=== PATIENT | male | born 1960 | race Caucasian/White ===

== ENCOUNTER 2019-11-01 08:25 | Inpatient (IN) | payer MEDICARE, BC ==
[2019-11-01 09:11] LABS: #Basophils 0.1 thou/uL (0.0-0.2); #Eosinphils 0.1 thou/uL (0.0-0.7); #Lymphocytes 0.8 thou/uL (1.20-3.40); #Monocytes 0.4 thou/uL (0.11-0.59); #Neutrophils 5.1 thou/uL (1.40-6.50); %Basophils 1.1 % (0.0-1.0); %Eosinophils 1.9 % (0.0-10.0); %Lymphocytes 11.8 % (21.0-51.0); %Monocytes 5.8 % (0.0-10.0); %Neutrophils 79.4 % (42.0-75.0); Hemoglobin 5.1 g/dL (14.0-18.0); Mean Corpuscular HGB CONC 34.1 g/dL (32.0-36.0); Mean Corpuscular Hemoglobin 33.2 pg (27.0-31.0); Mean Corpuscular Volume 97.4 fL (78.0-98.0); Platelet Count 132 thou/uL (130-400); RBC Distribution Width 15.2 % (11.5-14.5); Red Blood Cell (RBC) Count 1.53 mill/uL (4.70-6.10); White Blood Cell (WBC) Count 6.5 thou/uL (4.8-10.8)
--- NOTE | 2019-11-01 09:13 | RAD ---
PORTABLE CHEST ONE VIEW: 11/01/2019 8:43 a.m. HISTORY: Somnolence and weakness. The patient went to dialysis yesterday. COMPARISON: 09/10/2017 FINDINGS: The heart size is prominent but stable. The aorta is tortuous. The lungs are well expanded without lo bar consolidation, pneumothoraces, carlos pulmonary edema, or pleural effusions. IMPRESSION: No acute process. POS: OFF
[2019-11-01 09:32] LABS: ALT (SGPT) 18 U/L (8-55); AST (SGOT) 13 U/L (5-34); Albumin 3.7 g/dL (3.5-5.0); Alkaline Phosphatase 77 U/L (40-110); Anion Gap 18 mmol/L (10-20); BUN (Urea Nitrogen) 69 mg/dL (8.4-25.7); Bilirubin, Total 0.5 mg/dL (0.2-1.2); Calc. Creatinine Clearance 0 mL/min (70-130); Calcium 8.9 mg/dL (7.8-10.44); Carbon Dioxide 34 mmol/L (22-29); Chloride 94 mmol/L (98-107); Estimated GFR-MDRD 8; Globulin 2.3 g/dL (2.4-3.5); Glucose 127 mg/dL (70-105); Potassium 3.6 mmol/L (3.5-5.1); Sodium 142 mmol/L (136-145)
[2019-11-01 09:52] LABS: CKMB 1.6 ng/mL (0-6.6)
[2019-11-01] MEDS ORDERED: Pantoprazole 40 MG VIAL ONE (09:54)
[2019-11-01 15:13] VITALS: BMI 24.1
[2019-11-01] MEDS ORDERED: Ondansetron ODT 4 MG TAB PO PRN (17:16)
[2019-11-01] MEDS ORDERED: Ondansetron PF 4 MG/2 ML Vial IVP PRN (17:16)
--- NOTE | 2019-11-01 17:24 | PDOC.HHP ---
Hospitalist HPI - History of Present Illness Lightheaded History of Present Illness: Mr. Gautam presents following a pre-syncopal episode while having breakfast at [facility] this morning. He stood up to go to the bathroom and felt as if he was going to faint. He looked pale to the staff therefore he was taken to the ED. Patient states he has felt occasionally lightheaded the last couple of days and reports having 1 black stool recently. Denies any bright red blood per rectum. No n/v or hematemesis. no abdominal pain. Denies any chest pain or sob. Reports being due to HD tomorrow. ED Course: Given 2 units of PRBCs. Initial hgb was 5.1. Stool checked for occult blood reportedly negative in the ED, however patient states he was told it was positive. Hospitalist ROS - Review of Systems Constitutional: reports: weakness. denies: fever, chills, sweats, malaise, other Eyes: denies: pain, vision change, conjunctivae inflammation, eyelid inflammation, redness, other ENT: denies: ear pain, ear discharge, nose pain, nose discharge, nose congestion , mouth pain, mouth swelling, throat pain, throat swelling, other Respiratory: denies: cough, dry, shortness of breath, hemoptysis, SOB with excertion, pleuritic pain, sputum, wheezing, other Cardiovascular: reports: light headedness. denies: chest pain, palpitations, orthopnea, paroxysmal noc. dyspnea, edema, other Gastrointestinal: denies: nausea, vomiting, abdominal pain, diarrhea, constipation, melena, hematochezia, other Genitourinary: denies: dysuria, frequency, incontinence, hematuria, retention, other Musculoskeletal: denies: neck pain, shoulder pain, arm pain, back pain, hand pain, leg pain, foot pain, other Skin: denies: rash, lesions, mike, bruising, other Neurological: denies: weakness, numbness, incoordination, change in speech, confusion, seizures, other Hospitalist History - Past Medical History Source: patient Cardiac: reports: HTN, Hyperlipidemia Renal/: denies: Other - Past Surgical History Other Surgical History: nephrectomy, right oral surgery hernia repair - Social History Smoking Status: Former smoker Tobacco Type: chewing tobacco Alcohol: reports: None Living Situation: Alone Domestic Violence: Negative Activity level: independent ambulation - Exam General Appearance: NAD General - other findings: Appears pale Eye: PERRL ENT: normocephalic atraumatic, no oropharyngeal lesions, moist mucosa Neck: supple, symmetric, no lymphadenopathy Heart: RRR, no murmur, no gallops, no rubs Respiratory: CTAB, no wheezes, no rales, no ronchi, normal chest expansion Gastrointestinal: soft, non-tender, non-distended, normal bowel sounds Extremities: no cyanosis Skin: no lesions, no rashes Neurological: normal sensation to touch, no weakness, no new deficit Musculoskeletal: normal tone, normal strength, no muscle wasting Psychiatric: normal affect, normal behavior, A&O x 3 Hospitalist Results - Labs Result Diagrams: 11/01/19 08:57 11/01/19 08:57 Lab results: WBC 6.5 thou/uL (4.8-10.8) 11/01/19 08:57 Hgb 5.1 g/dL (14.0-18.0) L* 11/01/19 08:57 Hct 14.9 % (42.0-52.0) L* 11/01/19 08:57 MCV 97.4 fL (78.0-98.0) 11/01/19 08:57 Plt Count 132 thou/uL (130-400) 11/01/19 08:57 Neutrophils % 79.4 % (42.0-75.0) H 11/01/19 08:57 Sodium 142 mmol/L (136-145) 11/01/19 08:57 Potassium 3.6 mmol/L (3.5-5.1) 11/01/19 08:57 Chloride 94 mmol/L (98-107) L 11/01/19 08:57 Carbon Dioxide 34 mmol/L (22-29) H 11/01/19 08:57 BUN 69 mg/dL (8.4-25.7) H 11/01/19 08:57 Creatinine 7.49 mg/dL (0.7-1.3) H 11/01/19 08:57 Glucose 127 mg/dL (70-105) H 11/01/19 08:57 Calcium 8.9 mg/dL (7.8-10.44) 11/01/19 08:57 Total Bilirubin 0.5 mg/dL (0.2-1.2) 11/01/19 08:57 AST 13 U/L (5-34) 11/01/19 08:57 ALT 18 U/L (8-55) 11/01/19 08:57 Alkaline Phosphatase 77 U/L (40-110) 11/01/19 08:57 CK-MB (CK-2) 1.6 ng/mL (0-6.6) 11/01/19 08:57 Troponin I 0.044 ng/mL (< 0.028) H 11/01/19 08:57 Serum Total Protein 6.0 g/dL (6.0-8.3) 11/01/19 08:57 Albumin 3.7 g/dL (3.5-5.0) 11/01/19 08:57 Hospitalist H&P A/P - Problem (1) Melena Code(s): K92.1 - MELENA Status: Acute (2) Anemia of renal disease Code(s): D63.1 - ANEMIA IN CHRONIC KIDNEY DISEASE Status: Chronic (3) ESRD (end stage renal disease) on dialysis Code(s): N18.6 - END STAGE RENAL DISEASE; Z99.2 - DEPENDENCE ON RENAL DIALYSIS Status: Chronic (4) Hyperlipidemia Code(s): E78.5 - HYPERLIPIDEMIA, UNSPECIFIED Status: Chronic (5) Hypertension Code(s): I10 - ESSENTIAL (PRIMARY) HYPERTENSION Status: Chronic - Plan Plan: S/p 2 units PRBCs, re-check Hgb/Hct Re-check stool for occult blood GI Consult, NPO at midnight. Protonix 40 mg BID Nephrology consult (due to HD tomorrow) Resume home medications once verified. Monitor BP. CODE STATUS: FULL Surrogate decision maker: Preet Gautam, his brother.
[2019-11-01 17:33] LABS: Hemoglobin 6.6 g/dL (14.0-18.0)
[2019-11-01 17:39] LABS: INR-International Normal Ratio 1.1; PTT 27.8 SEC (22.9-36.1)
[2019-11-01] MEDS ORDERED: Mometasone Furoate 120 PUFF 220 MCG INH SCH (18:30)
[2019-11-01] MEDS: hydrALAZINE 25 MG TAB PO SCH (20:52)
[2019-11-01] MEDS: Carvedilol 25 MG TAB PO SCH (20:52)
[2019-11-01] MEDS: Pantoprazole 40 MG VIAL IVP SCH (20:53)
[2019-11-01] MEDS ORDERED: hydrALAZINE 20 MG/ML VIAL SLOW IVP PRN (22:15)
[2019-11-01] MEDS ORDERED: NIFEdipine XL 30 MG TAB PO SCH (22:30)
[2019-11-01] MEDS ORDERED: Lorazepam 0.5 MG TAB PO SCH (22:30)
--- NOTE | 2019-11-01 22:48 | CON ---
DATE OF CONSULTATION: 11/01/2019 REASON FOR CONSULTATION: Anemia, possible melena. CONSULTING PROVIDER: Ms. Jeni Markham. HISTORY OF PRESENT ILLNESS: The patient is a 58-year-old male with past medical history of hypertension; hyperlipidemia; end-stage renal disease, on hemodialysis; and anemia of renal disease, presenting with complaints of a presyncopal event and anemia. The patient states that he was in the usual state of health until this morning when while having breakfast at [facility], he stood up and experienced a "stumbling" type event where the patient had significant lower extremity weakness as well as lightheadedness, but did not have any loss of consciousness. Given the sudden increased weakness, it prompted him to seek healthcare assistance and while in the [facility] ER, he was noted to have a significantly decreased H and H. He was subsequently admitted to the hospital for further evaluation. The patient also endorses the appearance of a solid stool earlier today that was normal in coloration, but did have some "black bits" embedded within the stool itself that was easy to wipe and has not had any overt hematochezia nor has he had any completely black or liquid stools. Otherwise, he denies any nausea, vomiting, fevers, chills, hematemesis, hematochezia, abdominal pain, dysphagia, odynophagia, or weight loss. Of note, the patient also states that his last colonoscopy was within the last year and probably performed at the [facility] with normal findings and while his brother does have a history of colon polyps, none of them were considered high-grade nor does he have any family history of colon cancer. Also of note, upon chart review, the patient was admitted to the hospital in September of 2017 with a significantly decreased H and H at that time as well, at which time, the patient was transfused with 2 units of PRBCs and his erythropoietin dose was increased with the most likely etiology being anemia of renal disease. REVIEW OF SYSTEMS: A 10-category review of systems was obtained with all responses negative except for the pertinent positives as listed in HPI. PAST MEDICAL HISTORY: As per HPI. PAST SURGICAL HISTORY: Arteriovenous fistula placement, hernia repair, right nephrectomy. FAMILY HISTORY: Brother with a history of colonic polyps (low-grade), otherwise denies any GI malignancies. SOCIAL HISTORY: Denies any alcohol or illicit drug use, although he does use chewing tobacco on a regular basis. OUTPATIENT MEDICATIONS: Reviewed. ALLERGIES: NO KNOWN DRUG ALLERGIES. PHYSICAL EXAMINATION: VITAL SIGNS: Temperature 98.1, pulse 72, blood pressure 191/82, respiratory rate 20, saturating 92% on room air. GENERAL: The patient was lying in bed, in no acute distress. Alert and oriented x4. HEENT: Normocephalic and atraumatic. NECK: Supple. No JVD or scleral icterus noted. CARDIOVASCULAR: Regular rate and rhythm. No discernible murmurs, gallops, or rubs. RESPIRATORY: Clear to auscultation bilaterally with no discernible wheezes or rales. ABDOMEN: Normoactive bowel sounds. Soft, nontender, nondistended. EXTREMITIES: No cyanosis, clubbing, or edema. LABORATORY DATA: CBC with a white blood cell count of 6.5, hemoglobin 5.1, hematocrit 14.9, platelets 132. INR 1.1. Chemistry with a sodium of 142, potassium 3.6, chloride 94, CO2 of 34, BUN 69, creatinine 7.49, glucose 127, AST 13, ALT 18, albumin 3.7, alkaline phosphatase 77, total bilirubin 0.5. IMAGING DATA: No current GI imaging is available for review. ASSESSMENT AND PLAN: The patient is a 58-year-old male with past medical history of hypertension; hyperlipidemia; end-stage renal disease, on hemodialysis; and anemia of renal disease with prior episodes of significant anemia, presenting with a recurrent episode of significant anemia. 1. Anemia. The patient is presenting with what appears to be a possible presyncopal episode earlier today, but more characterized as lower extremity weakness in association with a significant anemia noted on labs on evaluation in the ER and while he did have a darker colored stool today, it is not consistent with a melenic type picture given that it was a normal brown stool with dark bits embedded and solid in consistency (by definition, melena would be a dark black liquid stool). In conjunction with this, the patient had a colonoscopy within the last year at the [facility] with normal findings per patient making a colonic origin of his anemia unlikely as well. At this time, the differential could include anemia of renal disease (most likely), but an upper GI bleeding source cannot be ruled out at this time with differential also including esophagitis, gastritis, duodenitis, arteriovenous malformation, gastric ulcer/peptic ulcer disease and/or GI neoplasm (less likely). Recommendations: a. Would continue to trend his H and H and transfuse as necessary to maintain an H and H of 7/. b. Continue to monitor clinically for signs of active GI bleeding. c. Would continue patient on pantoprazole 40 mg b.i.d. until evaluation with upper endoscopy. d. Would make the patient n.p.o. at midnight in preparation for upper endoscopy tomorrow. e. If the EGD is negative, then the more likely origin of his anemia would be his concurrent renal dysfunction and would possibly recommend Nephrology consultation for adjusting the dose of erythropoietin. We will continue to follow. Please call with any questions. Job ID: [id number]
[2019-11-01 23:44] VITALS: TEMP 97.9
[2019-11-02 05:52] LABS: #Eosinphils 0.2 thou/uL (0.0-0.7); #Lymphocytes 0.8 thou/uL (1.20-3.40); #Monocytes 0.5 thou/uL (0.11-0.59); #Neutrophils 5.8 thou/uL (1.40-6.50); %Basophils 0.7 % (0.0-1.0); %Eosinophils 2.9 % (0.0-10.0); %Lymphocytes 11.2 % (21.0-51.0); %Monocytes 7.3 % (0.0-10.0); %Neutrophils 77.9 % (42.0-75.0); Hemoglobin 7.1 g/dL (14.0-18.0); Mean Corpuscular HGB CONC 32.8 g/dL (32.0-36.0); Mean Corpuscular Volume 94.5 fL (78.0-98.0); Mean Platelet Volume 8.5 fL (7.4-10.4); Platelet Count 146 thou/uL (130-400); RBC Distribution Width 15.9 % (11.5-14.5); Red Blood Cell (RBC) Count 2.29 mill/uL (4.70-6.10); White Blood Cell (WBC) Count 7.4 thou/uL (4.8-10.8)
[2019-11-02] MEDS: Carvedilol 25 MG TAB PO SCH (05:58)
[2019-11-02 06:21] LABS: ALT (SGPT) 19 U/L (8-55); AST (SGOT) 14 U/L (5-34); Albumin 3.5 g/dL (3.5-5.0); Alkaline Phosphatase 76 U/L (40-110); Anion Gap 21 mmol/L (10-20); BUN (Urea Nitrogen) 85 mg/dL (8.4-25.7); Bilirubin, Total 0.6 mg/dL (0.2-1.2); Calc. Creatinine Clearance 8 mL/min (70-130); Calcium 8.4 mg/dL (7.8-10.44); Carbon Dioxide 25 mmol/L (22-29); Chloride 98 mmol/L (98-107); Estimated GFR-MDRD 6; Globulin 2.2 g/dL (2.4-3.5); Glucose 98 mg/dL (70-105); Magnesium 2.4 mg/dL (1.6-2.6); Potassium 3.8 mmol/L (3.5-5.1); Protein, Total 5.7 g/dL (6.0-8.3); Sodium 140 mmol/L (136-145)
[2019-11-02 07:55] VITALS: BP 170/81
[2019-11-02] MEDS: hydrALAZINE 25 MG TAB PO SCH (08:31)
[2019-11-02] MEDS: Pantoprazole 40 MG VIAL IVP SCH (08:31)
[2019-11-02] MEDS ORDERED: NIFEdipine XL 90 MG TAB PO SCH (09:00)
[2019-11-02] MEDS ORDERED: Calcitriol 0.25 MCG CAP PO SCH (09:00)
--- NOTE | 2019-11-02 09:21 | PDOC.HOSPP ---
- Subjective Encounter Date: 11/02/19 Encounter Time: 15:00 Subjective: Patient seen after dialysis before EGD - Objective Vital Signs & Weight: Vital Signs (12 hours) Temp Pulse Resp BP BP BP Pulse Ox 11/02/19 08:31 78 11/02/19 07:54 97.9 F 78 20 170/81 H 90 L 11/02/19 04:11 97.9 F 77 20 160/80 H 95 11/02/19 02:01 173/83 H 11/02/19 01:12 79 207/93 H 11/01/19 22:43 72 204/100 H Weight Weight 154 lb 5.177 oz I&O: 11/01/19 11/02/19 11/03/19 06:59 06:59 06:59 Intake Total 185 Balance 185 Result Diagrams: 11/02/19 17:38 11/02/19 05:33 Hospitalist ROS - Review of Systems Constitutional: denies: fever, chills Respiratory: denies: cough, dry, shortness of breath Cardiovascular: denies: chest pain, palpitations, orthopnea Gastrointestinal: denies: nausea, vomiting, abdominal pain - Medication Medications: Active Medications Generic Name Dose Route Start Last Admin Trade Name Freq PRN Reason Stop Dose Admin Calcitriol 0.25 mcg 11/02/19 09:00 11/02/19 08:31 Rocaltrol PO 0.25 mcg DAILY SARTHAK Administration Carvedilol 12.5 mg 11/01/19 21:00 11/02/19 05:58 Coreg PO 12.5 mg BID SARTHAK Administration Hydralazine HCl 25 mg 11/01/19 21:00 11/02/19 08:31 Apresoline PO 25 mg TID SARTHAK Administration Hydralazine HCl 10 mg 11/01/19 22:15 11/02/19 01:12 Apresoline SLOW IVP 10 mg Q4H PRN Administration SBP Greater Than 180 Mometasone Furoate 1 puff 11/01/19 18:30 11/01/19 19:58 Asmanex Twisthaler INH 1 puff 1830 SARTHAK Administration Nifedipine 90 mg 11/02/19 09:00 11/02/19 08:31 Procardia Xl PO 90 mg DAILY SARTHAK Administration Pantoprazole Sodium 40 mg 11/01/19 21:00 11/02/19 08:31 Protonix IVP 40 mg BID SARTHAK Administration Sodium Chloride 10 ml 11/01/19 21:00 11/01/19 20:53 Flush - Normal Saline IVF 10 ml Q12HR SARTHAK Administration - Exam General Appearance: NAD, awake alert Eye: anicteric sclera ENT: moist mucosa Heart: RRR, no murmur, no gallops, no rubs Respiratory: CTAB, no wheezes, no rales, no ronchi Gastrointestinal: soft, non-tender, non-distended, normal bowel sounds Psychiatric: normal affect, normal behavior, A&O x 3 Hosp A/P (1) Anemia of renal disease Code(s): D63.1 - ANEMIA IN CHRONIC KIDNEY DISEASE Status: Acute (2) ESRD (end stage renal disease) on dialysis Code(s): N18.6 - END STAGE RENAL DISEASE; Z99.2 - DEPENDENCE ON RENAL DIALYSIS Status: Chronic (3) Hyperlipidemia Code(s): E78.5 - HYPERLIPIDEMIA, UNSPECIFIED Status: Chronic (4) Hypertension Code(s): I10 - ESSENTIAL (PRIMARY) HYPERTENSION Status: Chronic - Plan Hemoccult stool negative EGD today, if normal likely anemia is only due to renal disease Hgb 7.1 after 2 units PRBC Dialysis per nephrology monitor H/H and if stable can likely d/c if EGD ok
[2019-11-02] MEDS ORDERED: PROPOFOL 200 MG/20 ML VIAL ONE (10:46)
[2019-11-02] MEDS ORDERED: hydrALAZINE 25 MG TAB PO SCH (15:00)
[2019-11-02] MEDS ORDERED: FLU VACC QS2019-20(6MOS UP)/PF 60 MCG/0.5 ML SYRINGE IM ONE (15:30)
[2019-11-02] MEDS ORDERED: Prevnar 13-Val Conj/PF 0.5 ML SYRINGE IM ONE (15:30)
[2019-11-02 17:48] LABS: Hemoglobin 7.7 g/dL (14.0-18.0)
--- NOTE | 2019-11-02 18:00 | OP ---
DATE OF PROCEDURE: 11/02/2019 GAME DESIGNER SURGEON: None. PROCEDURE PERFORMED: Esophagogastroduodenoscopy with biopsies. INDICATION: Anemia. MEDICATIONS: See Anesthesia record. FINDINGS: After discussion of the risks, benefits, and alternatives of the procedure, informed consent was obtained and witnessed. Pre-endoscopic cardiopulmonary examination was satisfactory. Time-out was performed before sedation was achieved. Sedation was achieved with Anesthesia assistance in the endoscopy unit. A Pentax adult upper endoscope was placed into the oropharynx and passed through the cricopharyngeus under direct visualization. The esophageal mucosa appeared normal throughout with a normal-appearing Z-line. The endoscope was advanced into the stomach. Forward and retroflexed views of the entire gastric mucosa were obtained. In the gastric fundus, there is some localized friability and mild erythema. No evidence of any erosion or ulceration, but just rather friable area with some contact oozing. There is a slightly nodular appearance to the mucosa in this area diffusely as well, but it certainly does not appear masslike. Multiple biopsies were obtained from this area of the gastric fundus. The remainder of the stomach appeared completely normal. There was no evidence of any erosions or ulcerations. The endoscope was advanced through the pylorus and into the first and second portions of the duodenum, which appeared normal. The upper endoscope was completely withdrawn and the patient allowed to recover. The patient tolerated the procedure well. There were no immediate postprocedure complications. IMPRESSION: 1. Mild gastritis, localized in the fundus, with erythema and friability. Biopsied for histology and to rule out Helicobacter pylori. 2. Otherwise normal esophagogastroduodenoscopy. RECOMMENDATIONS: 1. Daily PPI for 1 month. 2. Follow up pathology results on the gastric biopsies. 3. Advance diet. GI will sign off. Please call back with any questions or concerns. Job ID: [id number]
--- NOTE | 2019-11-02 20:16 | CON ---
DATE OF CONSULTATION: 11/02/2019 SERVICE: Nephrology. REASON FOR CONSULTATION: End-stage renal disease management. REQUESTING PHYSICIAN: YARI Romero CHIEF COMPLAINT: Near syncope. HISTORY OF PRESENT ILLNESS: A 58-year-old male with known history of end-stage renal disease, on hemodialysis, who suddenly developed near syncope and dizziness on getting up while having breakfast followed by unsteady gait. Friends and relatives around noticed the patient's unsteady gait the patient was very pale. Hence, he was brought to the emergency room, where he was found to have severe anemia of 5.1. He was subsequently transfused 2 units of packed red blood cells and GI is following. The patient has been complained with his hemodialysis with last treatment being 2 days ago. He denied nausea, hematemesis, hematochezia, hematuria, or easy bruising. PAST MEDICAL HISTORY: 1. Hypertension. 2. Hyperlipidemia. 3. End-stage renal disease, on hemodialysis. 4. The patient reported anemia with prior history of blood transfusion. PAST SURGICAL HISTORY: 1. Colonoscopy last year. 2. Right nephrectomy. 3. Oral surgery. 4. Hernia repair. FAMILY HISTORY: No history of colon cancer in the family, though brother had colon polyps. SOCIAL HISTORY: The patient lives with friends. Former smoker, but quit several years ago. Currently chews tobacco. Denied alcohol or recreational drug use. ALLERGIES: NO KNOWN DRUG ALLERGIES REPORTED. MEDICATIONS: Prior to hospital medications, 1. Aspirin 81 mg p.o. daily. 2. Carvedilol 12.5 mg p.o. b.i.d. 3. Flovent 2 sprays daily at bedtime. 4. Nifedipine 90 mg p.o. daily. 5. Calcitriol 0.25 mcg p.o. daily. 6. Hydralazine 25 mg p.o. t.i.d. 7. Protonix 40 mg p.o. daily. PHYSICAL EXAMINATION: VITAL SIGNS: Temperature 97.9, pulse 78, respiratory rate 20, SpO2 90% on room air, blood pressure is 170/81. GENERAL: Comfortable male patient in no obvious distress. Afebrile. Anicteric. Acyanotic. HEENT: Normocephalic, atraumatic. Oral mucosa is moist. NECK: Supple with no JVD. CARDIOVASCULAR: Regular rhythm and rate with normal heart sounds. RESPIRATORY: Good air entry bilaterally with no obvious crackle or rhonchi or use of accessory muscles. GI: Full, soft, nontender, nondistended with normal bowel sounds. EXTREMITIES: Grossly normal looking, atraumatic with no obvious edema or erythema. EARTH SCIENCE TEACHER: Conscious, alert, oriented x3 with appropriate mental status. Cranial nerves 2 through 12 are grossly intact. DIAGNOSTIC DATA: CBC today showed WBC count of 7.4, hemoglobin of 7.1, MCV of 94.5, and platelet of 146. Note that on presentation, hemoglobin was 5.1. BMP showed sodium 140, potassium 3.8, chloride 98, CO2 of 25, BUN 85, creatinine 9.75, glucose 98, calcium 8.4, magnesium 2.4, AST 14, ALT 19, alkaline phosphatase 76, total protein 5.7, albumin 3.5, globulin 2.2. ASSESSMENT: 1. Acute on chronic anemia. Etiology is unclear, but GI bleeding is a concern. 2. Chronic anemia in chronic kidney disease. 3. The patient has had prior blood transfusion and subsequent increase in erythrocyte stimulating agents. The acute presentation is more consistent with GI bleeding. The patient also endorsed black stool. 4. End-stage renal disease, on hemodialysis. 5. Hypertension: Control is suboptimal. The patient is not overtly fluid overloaded to suggest this being mediated by hypervolemia. PLAN: 1. We will dialyze the patient today for 4 hours. 2. We will monitor blood pressure post-dialysis and adjust blood pressure as needed to get better BP control. We will increase hydralazine however to 50 mg p.o. t.i.d. 3. We will also get iron chemistry to assess for iron deficiency. 4. Blood transfusion as per primary attending. 5. The patient will be commenced on erythrocyte stimulating agent. Further treatment as per primary attending and GI. Job ID: [id number]
--- NOTE | 2019-11-03 03:01 | DIS ---
DATE OF ADMISSION: 11/01/2019 DATE OF DISCHARGE: 11/02/2019 PRIMARY CARE PHYSICIAN: Lillian Castillo MD REASON FOR ADMISSION: Severe anemia with possible melena. DIAGNOSES AT DISCHARGE: 1. Anemia of renal disease. 2. End-stage renal disease, on dialysis. 3. Mild gastritis without evidence of gastrointestinal bleed. 4. Hyperlipidemia. 5. Hypertension. PROCEDURE: Esophagogastroduodenoscopy with biopsies with results of mild gastritis localized in the fundus with erythema and friability. Biopsy to rule out H pylori. CONSULTATION: Gastroenterology, Dr. Byers. PERTINENT LABORATORY: Hemoglobin initially 5.1 up to 6.6 after transfusion of 2 units of packed red blood cells. On recheck, the hemoglobin later was 7.1 and on the evening of discharge, it was 7.7. SUMMARY OF HOSPITAL COURSE: This is a 58-year-old man with a history of end-stage renal disease and anemia of chronic disease, who came in because he felt like he was going to faint and was noted to be very pale. In the emergency room, he was found to have very low blood count. He was given 2 units of packed red blood cells with resolution of his symptoms. He also had dialysis and removal of some fluid. GI was consulted because there is some concern that maybe he had some melena. However, his stools on examination were dark brown, a Hemoccult test was negative for occult blood. The patient had had a colonoscopy within the last year. However, given that we were unable to rule out an upper GI source of blood loss, Dr. Mckay elected to do EGD with results as above. He was cleared for discharge, just to take proton pump inhibitor for 1 month. DISCHARGE MANAGEMENT: Discharged home. FOLLOWUP: Follow up with Dr. Mckay as directed and with Dr. Castillo in 7 days. ACTIVITY: As tolerated. DIET: Renal diet. MEDICATIONS: 1. Protonix 40 mg daily, 30 tablets dispensed. 2. Aspirin 81 mg daily. 3. Calcitriol 0.25 mcg daily. 4. Carvedilol 12.5 mg twice a day. 5. Flovent Diskus two sprays inhaled at night. 6. Hydralazine 25 mg 3 times a day. 7. Procardia XL 90 mg daily. Job ID: [id number]
== END 2019-11-02 18:58 | disposition home or self-care (01) | DRG 682 ==
LOC: ERS 08:25 → ERHOLD 10:24 → T4-B 15:12
PROVIDERS: ADMIT Internal Medicine; ATTEND Internal Medicine
PROC: 30233N1 Transfusion of Nonautologous Red Blood Cells into Peripheral Vein, Percutaneous Approach (ICD-10-PCS; principal; 2019-11-01)
PROC: 0DB68ZX Excision of Stomach, Via Natural or Artificial Opening Endoscopic, Diagnostic (ICD-10-PCS; 2019-11-02)
DX: I12.0 Hypertensive chronic kidney disease with stage 5 chronic kidney disease or end stage renal disease (principal); N18.6 End stage renal disease; D63.1 Anemia in chronic kidney disease; E78.5 Hyperlipidemia, unspecified; K29.70 Gastritis, unspecified, without bleeding; Z99.2 Dependence on renal dialysis; Z79.899 Other long term (current) drug therapy; Z79.82 Long term (current) use of aspirin
CPT/HCPCS: 36415; 36430; 71045; 80053; 82274; 82553; 83735; 84484; 85025; 85610; 85730; 86850; 86900; 86901; 93005; C9113; J0360; P9016

== ENCOUNTER 2020-01-04 06:28 | Emergency (ER) | payer MEDICARE, BC ==
[2020-01-04 07:18] LABS: #Eosinphils 0.1 thou/uL (0.0-0.7); #Lymphocytes 0.6 thou/uL (1.20-3.40); #Monocytes 1.3 thou/uL (0.11-0.59); #Neutrophils 13.8 thou/uL (1.40-6.50); %Basophils 0.1 % (0.0-1.0); %Eosinophils 0.4 % (0.0-10.0); %Lymphocytes 3.9 % (21.0-51.0); %Monocytes 8.1 % (0.0-10.0); %Neutrophils 87.4 % (42.0-75.0); Hemoglobin 8.4 g/dL (14.0-18.0); MDiff Complete? YES; Mean Corpuscular HGB CONC 33.1 g/dL (32.0-36.0); Mean Corpuscular Hemoglobin 31.5 pg (27.0-31.0); Mean Platelet Volume 8.9 fL (7.4-10.4); Platelet Count 81 thou/uL (130-400); Platelet Morphology Comment Appears Decreased; Polychromasia SLIGHT = 2-3 cells (100X) (0-2/hpf); RBC Distribution Width 16.3 % (11.5-14.5); Red Blood Cell (RBC) Count 2.66 mill/uL (4.70-6.10); White Blood Cell (WBC) Count 15.8 thou/uL (4.8-10.8)
[2020-01-04 07:19] LABS: ALT (SGPT) 18 U/L (8-55); AST (SGOT) 12 U/L (5-34); Albumin 3.9 g/dL (3.5-5.0); Alkaline Phosphatase 80 U/L (40-110); Anion Gap 17 mmol/L (10-20); BUN (Urea Nitrogen) 50 mg/dL (8.4-25.7); Bilirubin, Total 0.7 mg/dL (0.2-1.2); Calc. Creatinine Clearance 0 mL/min (70-130); Calcium 9.7 mg/dL (7.8-10.44); Carbon Dioxide 31 mmol/L (22-29); Chloride 94 mmol/L (98-107); Estimated GFR-MDRD 7; Globulin 2.4 g/dL (2.4-3.5); Glucose 124 mg/dL (70-105); Protein, Total 6.3 g/dL (6.0-8.3); Sodium 138 mmol/L (136-145)
--- NOTE | 2020-01-04 08:37 | RAD ---
PORTABLE CHEST: Date: 01/04/2020 PROVIDED CLINICAL HISTORY: Cough. FINDINGS: Comparison with 11/01/2019. Cardiac silhouette remains enlarged. Obscuration of the left hemidiaphragm compatible with left basil ar pleural and/or parenchymal opacity. Right lung appears clear. There is no evidence for pneumothora x. IMPRESSION: Left basilar pleural and/or parenchymal opacity. This may reflect pleural fluid with adjacent atelect asis and/or infiltrate. Follow-up is recommended. POS: TPC
== END 2020-01-04 09:05 | disposition home or self-care (01) ==
LOC: ERS 06:28
DX: J18.9 Pneumonia, unspecified organism (principal); E78.5 Hyperlipidemia, unspecified; E78.00 Pure hypercholesterolemia, unspecified; F17.220 Nicotine dependence, chewing tobacco, uncomplicated; D64.9 Anemia, unspecified; N18.6 End stage renal disease; Z79.899 Other long term (current) drug therapy
CPT/HCPCS: 36415; 71046; 80053; 85025; 93005

== ENCOUNTER 2020-01-13 07:08 | Observation (INO) | payer MEDICARE, BC ==
[2020-01-13 07:57] LABS: #Eosinphils 0.1 thou/uL (0.0-0.7); #Lymphocytes 0.6 thou/uL (1.20-3.40); #Monocytes 0.6 thou/uL (0.11-0.59); #Neutrophils 8.3 thou/uL (1.40-6.50); %Basophils 0.4 % (0.0-1.0); %Eosinophils 0.6 % (0.0-10.0); %Lymphocytes 6.6 % (21.0-51.0); %Monocytes 5.7 % (0.0-10.0); %Neutrophils 86.7 % (42.0-75.0); Mean Corpuscular HGB CONC 32.8 g/dL (32.0-36.0); Mean Corpuscular Hemoglobin 31.4 pg (27.0-31.0); Mean Corpuscular Volume 95.6 fL (78.0-98.0); Mean Platelet Volume 8.8 fL (7.4-10.4); Platelet Count 175 thou/uL (130-400); RBC Distribution Width 16.2 % (11.5-14.5); Red Blood Cell (RBC) Count 2.54 mill/uL (4.70-6.10); White Blood Cell (WBC) Count 9.5 thou/uL (4.8-10.8)
--- NOTE | 2020-01-13 08:00 | RAD ---
RADIOGRAPH CHEST 2 VIEW: DATE: 01/13/2020 TIME: 8:54 AM HISTORY: 59-year-old male with cough COMPARISON: 01/04/2020 FINDINGS: Cardiomegaly now appears slightly worse. The meniscus at the left base seen on the frontal view remai ns, but the underlying pulmonary opacity at the base of the left lower lobe has improved. Lateral view shows mild blunting of posterior costophrenic angles bilaterally. No pulmonary edema or consolid ation currently. No pneumothorax. IMPRESSION: 1. Cardiomegaly. 2. Small left pleural effusion and tiny right pleural effusion. 3. No consolidation or pulmonary edema.
[2020-01-13 08:10] LABS: ALT (SGPT) 96 U/L (8-55); AST (SGOT) 54 U/L (5-34); Alkaline Phosphatase 112 U/L (40-110); Anion Gap 22 mmol/L (10-20); BUN (Urea Nitrogen) 54 mg/dL (8.4-25.7); Bilirubin, Total 0.5 mg/dL (0.2-1.2); Calc. Creatinine Clearance 0 mL/min (70-130); Carbon Dioxide 31 mmol/L (22-29); Chloride 92 mmol/L (98-107); Estimated GFR-MDRD 6; Globulin 2.6 g/dL (2.4-3.5); Glucose 106 mg/dL (70-105); Potassium 4.1 mmol/L (3.5-5.1); Protein, Total 6.6 g/dL (6.0-8.3); Sodium 141 mmol/L (136-145)
[2020-01-13] MEDS ORDERED: Cefepime 2 GM VIAL ONE (08:31)
[2020-01-13] MEDS ORDERED: Vancomycin 1 GM/200 ML BAG ONE (08:31)
--- NOTE | 2020-01-13 11:03 | ULT ---
GALLBLADDER ULTRASOUND: Date: 01/13/2020 HISTORY: Elevated LFTs, vomiting. COMPARISON: 08/20/2016. FINDINGS: The liver demonstrates homogeneous echotexture without focal mass or intrahepatic ductal dilatation. There is a small amount of free fluid adjacent to the liver. Multiple nonshadowing echogenic foci wit hout mobility are seen arising from the wall of the gallbladder consistent with polyps measuring up t o 5.0 mm. The gallbladder wall is thickened, measuring 8.0 mm. There is a small amount of free perich olecystic fluid. Pancreas is prominent, but otherwise unremarkable. The right kidney is small (7.5 cm) and echogenic w ith two cysts, the largest measuring 2.0 cm. No right-sided hydronephrosis seen. IMPRESSION: 1. Gallbladder wall polyps with thickened wall and pericholecystic fluid. If there is concern for ac jose ramon cholecystitis, further evaluation with HIDA scan should be performed. 2. Medical renal disease with renal cysts. POS: JESSE
[2020-01-13] MEDS: Ondansetron PF 4 MG/2 ML Vial IVP PRN (14:55)
[2020-01-13] MEDS: cefTRIAXone\\ROCEPHIN 1 GM in Sodium Chloride 0.9% 100 ML IVPB SCH (14:55)
--- NOTE | 2020-01-13 16:30 | HP ---
CHIEF COMPLAINT: Feeling weak. HISTORY OF PRESENT ILLNESS: The patient is a 59-year-old male with end-stage renal disease, on hemodialysis on Friday, , and Friday; history of diabetes; hypertension; hyperlipidemia; and history of anemia of chronic disease; who presented to the hospital with complaints of feeling dizzy and generally weak, that started yesterday after his hemodialysis session. The patient was found to be hypotensive in the ER with the systolic blood pressure in the 80s, that has improved after administration of IV fluids. Initial workup revealed some elevated LFTs, and an ultrasound of the abdomen was performed showing thickened gallbladder wall with pericholecystic fluid suggestive of cholecystitis. REVIEW OF SYSTEMS: Negative except as noted in HPI. PAST MEDICAL HISTORY: 1. End-stage renal disease. 2. Hypertension. 3. Hyperlipidemia. 4. Chronic anemia. 5. Diabetes mellitus. PAST SURGICAL HISTORY: Right nephrectomy and hernia repair. SOCIAL HISTORY: The patient is a former smoker. Denies history of illicit drug use or alcoholism. PHYSICAL EXAMINATION: GENERAL: The patient appears well, alert and oriented x3. HEENT: His head is normocephalic, atraumatic. NECK: Supple with no JVD. CHEST: Clear to auscultation bilaterally. CARDIOVASCULAR: RRR. No murmurs, rubs, or gallops. Normal S1, S2. No peripheral edema. ABDOMEN: Soft, nontender, nondistended. EXTREMITIES: Showing normal skin, and no edema. NEUROLOGICAL: Unremarkable. ASSESSMENT: 1. Hypotension. 2. Possible cholecystitis. 3. End-stage renal disease, on hemodialysis. 4. Hypertension. 5. Hyperlipidemia. 6. Diabetes mellitus. PLAN: 1. We will bring the patient to the hospital and start empiric IV antibiotic with Rocephin 1 g daily. 2. Consult Surgical Team to assess for possible cholecystitis. 3. I will hold off on further IV fluids at this moment due to the patient being on dialysis. Job ID: [id number]
[2020-01-13] MEDS: Carvedilol 6.25 MG TAB PO SCH (21:27)
[2020-01-14] MEDS: Acetaminophen 325 MG TAB PO PRN ×2 (00:38→12:55)
[2020-01-14 06:38] LABS: ALT (SGPT) 246 U/L (8-55); AST (SGOT) 161 U/L (5-34); Albumin 3.7 g/dL (3.5-5.0); Alkaline Phosphatase 95 U/L (40-110); Anion Gap 26 mmol/L (10-20); BUN (Urea Nitrogen) 70 mg/dL (8.4-25.7); Bilirubin, Total 0.5 mg/dL (0.2-1.2); Calc. Creatinine Clearance 8 mL/min (70-130); Calcium 9.4 mg/dL (7.8-10.44); Carbon Dioxide 23 mmol/L (22-29); Chloride 95 mmol/L (98-107); Estimated GFR-MDRD 6; Globulin 2.5 g/dL (2.4-3.5); Glucose 114 mg/dL (70-105); Potassium 4.9 mmol/L (3.5-5.1); Protein, Total 6.2 g/dL (6.0-8.3); Sodium 139 mmol/L (136-145)
[2020-01-14 07:23] VITALS: BP 108/75; TEMP 97.5
[2020-01-14] MEDS ORDERED: Enoxaparin Sodium 30 MG/0.3 ML SYRINGE SC SCH (09:00)
[2020-01-14] MEDS ORDERED: Famotidine 20 MG TAB PO SCH (09:00)
[2020-01-14] MEDS ORDERED: Aspirin Chewable 81 MG TAB PO SCH (09:00)
[2020-01-14] MEDS: Ondansetron PF 4 MG/2 ML Vial IVP PRN (09:07)
[2020-01-14] MEDS: Carvedilol 6.25 MG TAB PO SCH (09:08)
[2020-01-14 12:05] LABS: HBSAg Index 0.47 S/CO (0-0.99); Hep B Surf Ag Non-Reactive S/CO (NonReactive)
[2020-01-14] MEDS: cefTRIAXone\\ROCEPHIN 1 GM in Sodium Chloride 0.9% 100 ML IVPB SCH (12:29)
[2020-01-14 12:44] VITALS: BMI 24.3
[2020-01-14] MEDS ORDERED: Heparin 10,000 UNITS/ 10 ML VIAL ONE (13:40)
--- NOTE | 2020-01-14 16:00 | CON ---
DATE OF CONSULTATION: HISTORY OF PRESENT ILLNESS: Terrance Gautam is a 59-year-old male, a dialysis patient, has had pneumonia in the past few days, coughing, had low-grade fever, felt poorly. He denies any abdominal pain whatsoever. He presented to the emergency room. The patient has end-stage renal disease, followed by Dr. Rock with a durable left forearm Timothy fistula, placed by Dr. Rock. He was seen in the emergency room. His white count was 9.5 and hemoglobin 8. Liver function tests were normal. The patient underwent abdominal ultrasound for some reason, noting some gallbladder polyps, thickened gallbladder wall, pericholecystic fluid with normal bile duct caliber. I was called by the ER physician, concerned about cholecystitis, although the patient did not have any pain or tenderness in the right abdomen. I informed the emergency room physician the further evaluation was not necessary that he did not have biliary disease and his pericholecystic fluid is probably related to his end-stage renal disease status, perhaps contributed with some cardiac diastolic dysfunction. I, however, was consulted on the floor to see him. The patient states he has had a cough for the past few days. Again, he denies any abdominal pain, nausea, or bloating to me. He does not have any flank pain or chest pain. Liver function tests are normal. ALLERGIES: NONE. MEDICATIONS: 1. Rocaltrol. 2. Hydralazine. 3. Protonix. 4. Nifedipine. 5. Carvedilol. 6. Aspirin. PAST MEDICAL HISTORY: 1. History of end-stage renal disease, on dialysis. 2. Recent onset of pneumonia. 3. Hypertension. 4. Hyperlipidemia. 5. Chronic anemia. 6. Diabetes mellitus. PAST SURGICAL HISTORY: 1. Right nephrectomy. 2. Hernia repair. 3. Left arm primary fistula by Dr. Rock. HABITS: The patient has been a smoker in the past. He denies any drug use. PHYSICAL EXAMINATION: VITAL SIGNS: He is listed as 7 feet 5 inches, which I doubt, correct more like 5 feet 5 inches, 155 pounds, BMI is inaccurate on calculation due to inaccurate height, temperature 97.5 degrees, pulse 66, and blood pressure 180/75. LUNGS: Clear to auscultation. The patient does have a mild cough during this interview and exam. CARDIAC: Regular rhythm without murmur or gallop. ABDOMEN: Soft and nontender. No masses. No guarding whatsoever. EXTREMITIES: Unremarkable. ASSESSMENT AND PLAN: There is no clinical history or radiological findings to suggest biliary disease. Further evaluation and workup are not warranted. I would not order a HIDA scan as he does not have any symptoms. Would recommend discharge home whenever he is medically fit and Surgery will see him as needed. He can see me in my office or Dr. Rock should he develop any abdominal pain to warrant further biliary workup. Job ID: [id number]
--- NOTE | 2020-01-14 18:06 | CON ---
DATE OF CONSULTATION: CONSULTING PHYSICIAN: Jake Garrido MD REQUESTING PHYSICIAN: Dr. Phelan. REASON FOR CONSULTATION: Need for maintenance hemodialysis. IMPRESSION: 1. End-stage renal disease, hemodialysis dependent on a Friday, Friday, and Friday schedule. 2. Hypotension, likely in the context of overall ultrafiltration at dialysis. PLAN: 1. The patient to be dialyzed today with little or no ultrafiltration to maintain stable hemodynamics. 2. From the renal standpoint after dialysis, the patient likely to be able to be discharged home. HISTORY OF PRESENT ILLNESS: History is that of 59-year-old gentleman who was brought in here feeling dizzy and noted to be hypotensive. According to the patient, after dialysis on Friday, where the patient's blood pressure dropped down to the 80s. The patient incidentally also noted with gallbladder lesion, but he does not warrant any surgical intervention. The need for maintenance hemodialysis necessitated this Renal consultation. PAST MEDICAL HISTORY: Significant for end-stage renal disease, hypertension, dyslipidemia, chronic anemia, and diabetes mellitus. SOCIAL HISTORY: Remote tobacco use. No alcohol. No tobacco. No illicit drug use. REVIEW OF SYSTEMS: As documented in the body of history. All other systems were reviewed and found not to be significantly related to presenting illness. PHYSICAL EXAMINATION: GENERAL: The patient was noted not to be in any obvious distress. Noted with the following vital signs. VITAL SIGNS: Afebrile, temperature 97.5, pulse 66, blood pressure 108/75, respiratory rate of 17, and O2 saturation of 98%. HEENT: Unremarkable. CARDIOVASCULAR SYSTEM: First and second heart sounds were heard. RESPIRATORY SYSTEM: Clear to auscultation. DIGESTIVE SYSTEM: Reviewed a benign abdomen with positive bowel sounds. EXTREMITIES: No peripheral edema. SKIN: No new gross rash. LYMPHATICS: No peripheral lymphadenopathy. SUMMARY: A 59-year-old gentleman with end-stage renal disease, who is due for dialysis today. Thank you for this consultation. We will follow with you. Job ID: [id number]
--- NOTE | 2020-01-15 14:32 | EKG ---
Test Reason : Blood Pressure : / mmHG Vent. Rate : 069 BPM Atrial Rate : 069 BPM P-R Int : 142 ms QRS Dur : 084 ms QT Int : 438 ms P-R-T Axes : 026 -07 033 degrees QTc Int : 469 ms Normal sinus rhythm Minimal voltage criteria for LVH, may be normal variant Abnormal ECG Confirmed by LACEY BRADEN D.O. ([id number]), book editor VICTORIANO WILKES ([id number]) on 01/15/2020 2:31:54 PM Referred By: Confirmed By:LACEY BRADEN D.O.
== END 2020-01-14 19:59 | disposition home or self-care (01) ==
LOC: ERS 07:08 → T4-B 09:46
PROVIDERS: ADMIT Internal Medicine; ATTEND Internal Medicine
DX: I95.9 Hypotension, unspecified (principal); R53.1 Weakness; I12.0 Hypertensive chronic kidney disease with stage 5 chronic kidney disease or end stage renal disease; E11.22 Type 2 diabetes mellitus with diabetic chronic kidney disease; N18.6 End stage renal disease; D63.1 Anemia in chronic kidney disease; E78.5 Hyperlipidemia, unspecified; K82.4 Cholesterolosis of gallbladder; N28.1 Cyst of kidney, acquired; F17.220 Nicotine dependence, chewing tobacco, uncomplicated; J18.9 Pneumonia, unspecified organism; J90 Pleural effusion, not elsewhere classified; Z79.2 Long term (current) use of antibiotics; Z79.82 Long term (current) use of aspirin; Z79.899 Other long term (current) drug therapy; Z90.5 Acquired absence of kidney; Z99.2 Dependence on renal dialysis
CPT/HCPCS: 36415; 71046; 76705; 80053; 83605; 85025; 86850; 86900; 86901; 87040; 87340; 90935; 93005; 94760; 96365; 96368; 96372; 96375; 96376; G0257; G0378; J0692; J0696; J1644; J1650; J1956; J2405; J3370; J3490

== ENCOUNTER 2020-01-17 06:17 | Observation (INO) | payer MEDICARE, BC ==
[2020-01-17 07:17] LABS: ALT (SGPT) 3484 U/L (8-55); AST (SGOT) 758 U/L (5-34); Albumin 3.7 g/dL (3.5-5.0); Alkaline Phosphatase 132 U/L (40-110); Anion Gap 29 mmol/L (10-20); BUN (Urea Nitrogen) 120 mg/dL (8.4-25.7); Bilirubin, Total 1.3 mg/dL (0.2-1.2); Calc. Creatinine Clearance 0 mL/min (70-130); Calcium 8.9 mg/dL (7.8-10.44); Carbon Dioxide 22 mmol/L (22-29); Chloride 92 mmol/L (98-107); Estimated GFR-MDRD 5; Globulin 2.4 g/dL (2.4-3.5); Glucose 130 mg/dL (70-105); Potassium 5.5 mmol/L (3.5-5.1); Protein, Total 6.1 g/dL (6.0-8.3); Sodium 137 mmol/L (136-145)
[2020-01-17 07:39] LABS: #Eosinphils 0.1 thou/uL (0.0-0.7); #Lymphocytes 0.7 thou/uL (1.20-3.40); #Monocytes 0.8 thou/uL (0.11-0.59); #Neutrophils 12.4 thou/uL (1.40-6.50); %Eosinophils 0.5 % (0.0-10.0); %Lymphocytes 4.9 % (21.0-51.0); %Monocytes 5.9 % (0.0-10.0); %Neutrophils 88.6 % (42.0-75.0); Band 6 % (5-11); Hemoglobin 8.1 g/dL (14.0-18.0); Hypersemented Neutrophil SLIGHT; Lymphocytes 2 % (21-51); MDiff Complete? YES; Mean Corpuscular HGB CONC 31.5 g/dL (32.0-36.0); Mean Corpuscular Volume 95.4 fL (78.0-98.0); Mean Platelet Volume 11.4 fL (7.4-10.4); Monocytes 6 % (0-10); Neutrophil 86 % (42-75); Platelet Count 99 thou/uL (130-400); Platelet Morphology Comment Appears Decreased; Polychromasia SLIGHT = 2-3 cells (100X) (0-2/hpf); RBC Distribution Width 17.4 % (11.5-14.5); White Blood Cell (WBC) Count 13.9 thou/uL (4.8-10.8)
--- NOTE | 2020-01-17 08:04 | RAD ---
CHEST 1 VIEW: Date: 01/17/2020 INDICATION: History of anemia with shortness of breath and dizziness. COMPARISON: Prior exam dated 01/13/2020. FINDINGS: Prominent cardiomegaly is stable. Small left pleural effusion persists. Right lung is clear. Consolid ation is grossly evident. No pneumothorax is seen. No acute osseous abnormality is evident. IMPRESSION: Stable examination with cardiomegaly and small left pleural effusion. POS: BH
[2020-01-17 10:15] LABS: Hemoglobin 8.4 g/dL (14.0-18.0); Mean Corpuscular HGB CONC 31.3 g/dL (32.0-36.0); Mean Corpuscular Hemoglobin 30.5 pg (27.0-31.0); Mean Corpuscular Volume 97.6 fL (78.0-98.0); RBC Distribution Width 17.2 % (11.5-14.5); Red Blood Cell (RBC) Count 2.74 mill/uL (4.70-6.10); White Blood Cell (WBC) Count 13.9 thou/uL (4.8-10.8)
[2020-01-17 10:39] LABS: #Eosinphils 0.1 thou/uL (0.0-0.7); #Lymphocytes 0.6 thou/uL (1.20-3.40); #Neutrophils 12.2 thou/uL (1.40-6.50); %Basophils 0.1 % (0.0-1.0); %Eosinophils 0.5 % (0.0-10.0); %Lymphocytes 4.5 % (21.0-51.0); %Monocytes 7.2 % (0.0-10.0); %Neutrophils 87.8 % (42.0-75.0); Band 2 % (5-11); Burr Cells SLIGHT = 2-5 cells (100X) (0-1/hpf); Lymphocytes 5 % (21-51); MDiff Complete? YES; Mean Platelet Volume 11.8 fL (7.4-10.4); Monocytes 3 % (0-10); Neutrophil 90 % (42-75); Platelet Count 100 thou/uL (130-400); Platelet Morphology Comment Appears Decreased; Polychromasia SLIGHT = 2-3 cells (100X) (0-2/hpf)
--- NOTE | 2020-01-17 11:30 | HP ---
CHIEF COMPLAINT: He was sent from dialysis due to hypotension. HISTORY OF PRESENT ILLNESS: The patient is a 59-year-old male with history of end-stage renal disease, on hemodialysis on , Friday, and Friday, history of diabetes, hypertension, hyperlipidemia, and anemia of chronic kidney disease, who presented to the hospital after he was sent from his dialysis unit. The patient was found to be hypotensive in dialysis with systolic blood pressure in the 80s. This was associated with some dizziness. His blood work also revealed anemia with hemoglobin of 8.1. The patient was sent to the ER, where his blood pressure was better with systolic pressure in the 100. His soils engineer was contacted and he requested to bring the patient to the hospital to adjust his medications. REVIEW OF SYSTEMS: Negative except as noted in HPI. PAST MEDICAL HISTORY: End-stage renal disease, on hemodialysis; hypertension; hyperlipidemia; chronic anemia; and diabetes mellitus. PAST SURGICAL HISTORY: Right nephrectomy and hernia repair. SOCIAL HISTORY: The patient is a former smoker. No history of alcohol or illicit drug use. ALLERGIES: NO KNOWN DRUG ALLERGIES. PHYSICAL EXAMINATION: GENERAL: The patient is alert and oriented x3. HEENT: Head is normocephalic and atraumatic. NECK: Supple. No JVD. CHEST: Clear to auscultation bilaterally with crackles at the bases. CARDIOVASCULAR: Revealed mild tachycardia, regular rate and rhythm. No murmurs, rubs, or gallops. Normal S1 and S2. Mild peripheral edema. ABDOMEN: Soft, nontender, and nondistended. NEUROLOGIC: Showed normal cranial nerves II through XII and no focal abnormalities. ASSESSMENT: 1. Hypotension. 2. End-stage renal disease, on hemodialysis. 3. Hyperlipidemia. 4. Diabetes mellitus. PLAN: The patient will be placed on observation and his antihypertensive medications will be placed on hold. We will monitor him on a tele floor and further management as his clinical condition unfolds. Job ID: [id number]
[2020-01-17 12:11] VITALS: BMI 24.0
[2020-01-17] MEDS ORDERED: Heparin 5,000 UNITS/ML VIAL SC SCH (15:00)
[2020-01-17] MEDS ORDERED: EPOETIN ALFA-EPBX (ESRD) 4,000 UNIT/ML VIAL SC SCH (16:45)
--- NOTE | 2020-01-17 17:13 | CON ---
DATE OF CONSULTATION: CONSULTING PHYSICIAN: Jake Garrido MD REQUESTING PHYSICIAN: The ER physician and the hospitalist program. REASON FOR CONSULTATION: Need for maintenance hemodialysis. IMPRESSION: 1. End-stage renal disease, on hemodialysis, Friday, Friday, Friday schedule. 2. Hypotension, recurrent. 3. Anemia. PLAN: 1. The patient to be dialyzed today with minimal ultrafiltration. 2. Antihypertensive medications to be adjusted down to avoid recurrent hypotension. 3. Erythropoiesis stimulating agents to be initiated. 4. Further management to be dependent on the clinical course. HISTORY: This is a 59-year-old gentleman, who was recently discharged from here in the context of hypotension and felt to be related to increased ultrafiltration. The patient re-presented here today with the same complaint of hypotension, having presented at dialysis and noted to be hypotensive, necessitating transfer to the hospital. The patient also was noted to be anemic on presentation. PAST MEDICAL HISTORY: Significant for end-stage renal disease, hemodialysis dependent; hypertension; dyslipidemia; anemia; diabetes mellitus. MEDICATIONS: Reviewed and documented on [employer]. ALLERGIES: NO KNOWN DRUG ALLERGIES. SOCIAL HISTORY: No illicit drug use. No alcohol. Remote tobacco use. REVIEW OF SYSTEMS: As documented in the body of history. All other systems were reviewed and found not to be significantly related to present illness. PHYSICAL EXAMINATION: GENERAL: The patient was found not to be in any obvious distress. Hemodynamically stable on dialysis with the following vital signs. VITAL SIGNS: Afebrile, temperature 97.7, pulse 66, respiratory rate of 16, O2 saturation 97%, with blood pressure 109/68. HEENT: Unremarkable. CARDIOVASCULAR SYSTEM: First and second heart sounds were heard. RESPIRATORY SYSTEM: Clear to auscultation. DIGESTIVE SYSTEM: Revealed a benign abdomen with positive bowel sounds. EXTREMITIES: No peripheral edema. SKIN: No new gross rash. LYMPHATICS: No peripheral lymphadenopathy. SUMMARY: A 59-year-old gentleman with end-stage renal disease, hemodialysis dependent, who presented here with low blood pressure. Thank you for this consultation. We will follow with you. Job ID: [id number]
[2020-01-17] MEDS: Mometasone 100 MCG HFA INHALER INH SCH (19:08)
[2020-01-17] MEDS: Guaifenesin DM 100-10/5 ML UDCUP PO PRN (20:46)
[2020-01-17] MEDS: Carvedilol 6.25 MG TAB PO SCH (20:47)
[2020-01-17] MEDS ORDERED: Carvedilol 25 MG TAB PO SCH (21:00)
[2020-01-18 06:20] LABS: Anion Gap 19 mmol/L (10-20); BUN (Urea Nitrogen) 61 mg/dL (8.4-25.7); Calc. Creatinine Clearance 10 mL/min (70-130); Calcium 8.2 mg/dL (7.8-10.44); Carbon Dioxide 25 mmol/L (22-29); Chloride 97 mmol/L (98-107); Estimated GFR-MDRD 8; Glucose 103 mg/dL (70-105); Potassium 4.2 mmol/L (3.5-5.1); Sodium 137 mmol/L (136-145)
[2020-01-18] MEDS: Mometasone 100 MCG HFA INHALER INH SCH (07:33)
[2020-01-18] MEDS: Carvedilol 6.25 MG TAB PO SCH (08:08)
[2020-01-18 08:28] LABS: Hemoglobin 7.5 g/dL (14.0-18.0); Mean Corpuscular HGB CONC 32.2 g/dL (32.0-36.0); Mean Corpuscular Hemoglobin 30.9 pg (27.0-31.0); Mean Corpuscular Volume 95.8 fL (78.0-98.0); Mean Platelet Volume 10.5 fL (7.4-10.4); Platelet Count 82 thou/uL (130-400); RBC Distribution Width 17.2 % (11.5-14.5); Red Blood Cell (RBC) Count 2.44 mill/uL (4.70-6.10); White Blood Cell (WBC) Count 8.8 thou/uL (4.8-10.8)
[2020-01-18 08:42] LABS: Band 1 % (5-11); Lymphocytes 5 % (21-51); MDiff Complete? YES; Metamyelocyte 1 % (0-0); Monocytes 11 % (0-10); Myelocyte 1 % (0-0); Neutrophil 81 % (42-75); Ovalocytes SLIGHT = 2-5 cells (100X) (0-1/hpf); Platelet Morphology Comment Appears Decreased; Polychromasia SLIGHT = 2-3 cells (100X) (0-2/hpf); Schistocytes SLIGHT = 2-5 cells (100X) (0-1/hpf)
[2020-01-18] MEDS: Guaifenesin DM 100-10/5 ML UDCUP PO PRN (08:46)
[2020-01-18] MEDS ORDERED: CALCITRIOL 0.25 MCG PO SCH (09:00)
[2020-01-18] MEDS ORDERED: Calcitriol 0.25 MCG CAP PO SCH (09:00)
[2020-01-18] MEDS ORDERED: Aspirin Chewable 81 MG TAB PO SCH ×2 (09:00)
[2020-01-18 11:29] VITALS: BP 172/66; TEMP 97.5
--- NOTE | 2020-01-18 22:56 | PRG ---
DATE OF SERVICE: 01/18/2020 SUBJECTIVE: The patient not able to be following. OBJECTIVE: VITAL SIGNS: HEENT: Unremarkable. CARDIOVASCULAR: First and second heart sounds were heard. RESPIRATORY: Clear to auscultation. DIGESTIVE: Revealed a benign abdomen. EXTREMITIES: No peripheral edema. SKIN: No new gross rash. LYMPHATICS: No peripheral lymphadenopathy. IMPRESSION: 1. End-stage renal disease, hemodialysis dependent. 2. Hypotension, likely in the context of blood pressure medication usage. 3. Anemia. PLAN: 1. We will adjust the patient's antihypertensive medications as an outpatient to optimize hemodynamics. 2. No indication for renal replacement therapy today. 3. Further management to be dependent on the clinical course. Job ID: [id number]
--- NOTE | 2020-01-22 13:14 | EKG ---
Test Reason : Blood Pressure : / mmHG Vent. Rate : 063 BPM Atrial Rate : 063 BPM P-R Int : 138 ms QRS Dur : 098 ms QT Int : 460 ms P-R-T Axes : 029 -10 058 degrees QTc Int : 470 ms Normal sinus rhythm Nonspecific ST and T wave abnormality Prolonged QT Abnormal ECG Confirmed by MARYANN DUPONT ([id number]), map editor VICTORIANO WILKES ([id number]) on 01/22/2020 1:14:05 PM Referred By: Confirmed By:MARYANN DUPONT
== END 2020-01-18 11:49 | disposition home or self-care (01) ==
LOC: ERS 06:17 → T4-B 10:11 → INTOOBSV 10:11
PROVIDERS: ADMIT Internal Medicine; ATTEND Internal Medicine
DX: I95.9 Hypotension, unspecified (principal); I12.0 Hypertensive chronic kidney disease with stage 5 chronic kidney disease or end stage renal disease; E11.22 Type 2 diabetes mellitus with diabetic chronic kidney disease; N18.6 End stage renal disease; D63.1 Anemia in chronic kidney disease; E78.5 Hyperlipidemia, unspecified; E78.00 Pure hypercholesterolemia, unspecified; F17.220 Nicotine dependence, chewing tobacco, uncomplicated; Z79.82 Long term (current) use of aspirin; Z79.899 Other long term (current) drug therapy; Z90.5 Acquired absence of kidney; Z99.2 Dependence on renal dialysis
CPT/HCPCS: 71045; 80048; 80053; 85025 ×3; 86850; 86900; 86901; 93005; 94640 ×2; 97139; 99285; 99406; Q5105; 36415; 90935; 96372; G0257; G0378

== ENCOUNTER 2020-03-02 15:36 | Observation (INO) | payer MEDICARE, BC, OTHER ==
--- NOTE | 2020-03-02 16:31 | RAD ---
PORTABLE CHEST ONE VIEW: 03/02/20 at 2:47 p.m. HISTORY: Syncope. COMPARISON: 01/31/20. FINDINGS/IMPRESSION: The heart size is stable. There is consolidation of the left lung base with accompanying left effusio n. No pneumothoraces or carlos pulmonary edema are seen. POS: MZA
[2020-03-02 16:46] LABS: #Eosinphils 0.3 thou/uL (0.0-0.7); #Lymphocytes 0.6 thou/uL (1.20-3.40); #Monocytes 0.6 thou/uL (0.11-0.59); #Neutrophils 4.8 thou/uL (1.40-6.50); %Basophils 0.6 % (0.0-1.0); %Eosinophils 4.1 % (0.0-10.0); %Monocytes 9.5 % (0.0-10.0); %Neutrophils 76.8 % (42.0-75.0); Hemoglobin 8.8 g/dL (14.0-18.0); Mean Corpuscular HGB CONC 31.9 g/dL (32.0-36.0); Mean Corpuscular Hemoglobin 30.2 pg (27.0-31.0); Mean Corpuscular Volume 94.9 fL (78.0-98.0); Mean Platelet Volume 9.2 fL (7.4-10.4); Platelet Count 110 thou/uL (130-400); RBC Distribution Width 17.7 % (11.5-14.5); White Blood Cell (WBC) Count 6.3 thou/uL (4.8-10.8)
[2020-03-02 17:01] LABS: Anisocytosis SLIGHT = 6-15 cells (100X) (0-5/hpf); MDiff Complete? YES; Platelet Morphology Comment Appears Decreased; Polychromasia SLIGHT = 2-3 cells (100X) (0-2/hpf)
[2020-03-02 17:03] LABS: ALT (SGPT) 11 U/L (8-55); AST (SGOT) 13 U/L (5-34); Albumin 3.6 g/dL (3.5-5.0); Alkaline Phosphatase 95 U/L (40-110); Anion Gap 21 mmol/L (10-20); BUN (Urea Nitrogen) 78 mg/dL (8.4-25.7); Bilirubin, Total 1.1 mg/dL (0.2-1.2); CK (CPK) 50 U/L (30-200); Calc. Creatinine Clearance 0 mL/min (70-130); Calcium 9.3 mg/dL (7.8-10.44); Carbon Dioxide 26 mmol/L (22-29); Chloride 97 mmol/L (98-107); Estimated GFR-MDRD 6; Globulin 2.9 g/dL (2.4-3.5); Glucose 126 mg/dL (70-105); Potassium 4.2 mmol/L (3.5-5.1); Protein, Total 6.5 g/dL (6.0-8.3); Sodium 140 mmol/L (136-145)
[2020-03-02 17:26] LABS: CKMB 1.6 ng/mL (0-6.6)
[2020-03-02] MEDS ORDERED: Acetaminophen 325 MG TAB PO PRN (18:28)
[2020-03-02] MEDS ORDERED: Acetaminophen 650 MG Suppository PR PRN (18:28)
[2020-03-02 19:25] VITALS: BMI 22.1
[2020-03-02 19:52] LABS: Troponin I 0.049 ng/mL (< 0.028)
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
[2020-03-02] MEDS: hydrALAZINE 20 MG/ML VIAL SLOW IVP PRN (22:15)
[2020-03-02 22:43] LABS: Troponin I 0.053 ng/mL (< 0.028)
[2020-03-03] MEDS ORDERED: cloNIDine 0.1 MG TAB PO PRN (00:13)
[2020-03-03] MEDS ORDERED: hydrALAZINE 25 MG TAB PO SCH (00:30)
[2020-03-03] MEDS ORDERED: Carvedilol 25 MG TAB PO SCH (00:30)
[2020-03-03 04:25] LABS: #Eosinphils 0.3 thou/uL (0.0-0.7); #Lymphocytes 0.6 thou/uL (1.20-3.40); #Monocytes 0.4 thou/uL (0.11-0.59); #Neutrophils 4.3 thou/uL (1.40-6.50); %Basophils 0.1 % (0.0-1.0); %Monocytes 7.9 % (0.0-10.0); Hemoglobin 8.7 g/dL (14.0-18.0); Mean Corpuscular HGB CONC 31.3 g/dL (32.0-36.0); Mean Corpuscular Hemoglobin 29.6 pg (27.0-31.0); Mean Corpuscular Volume 94.7 fL (78.0-98.0); Mean Platelet Volume 8.6 fL (7.4-10.4); Platelet Count 96 thou/uL (130-400); RBC Distribution Width 17.6 % (11.5-14.5); Red Blood Cell (RBC) Count 2.93 mill/uL (4.70-6.10); White Blood Cell (WBC) Count 5.6 thou/uL (4.8-10.8)
[2020-03-03 04:33] LABS: Anion Gap 20 mmol/L (10-20); BUN (Urea Nitrogen) 84 mg/dL (8.4-25.7); Calc. Creatinine Clearance 7 mL/min (70-130); Carbon Dioxide 24 mmol/L (22-29); Chloride 100 mmol/L (98-107); Estimated GFR-MDRD 5; Glucose 95 mg/dL (70-105); Potassium 3.9 mmol/L (3.5-5.1); Sodium 140 mmol/L (136-145)
[2020-03-03] MEDS: hydrALAZINE 25 MG TAB PO SCH ×2 (08:25→15:48)
[2020-03-03] MEDS: Carvedilol 25 MG TAB PO SCH ×2 (08:25→16:58)
[2020-03-03] MEDS ORDERED: Amlodipine 10 MG TAB PO SCH (09:00)
[2020-03-03] MEDS ORDERED: Febuxostat 40 MG TAB PO SCH (09:00)
[2020-03-03] MEDS ORDERED: Aspirin Chewable 81 MG TAB PO SCH (09:00)
[2020-03-03] MEDS: hydrALAZINE 20 MG/ML VIAL SLOW IVP PRN ×2 (09:19→15:54)
--- NOTE | 2020-03-03 11:00 | PDOC.HOSPP ---
- Subjective Encounter Date: 03/03/20 Encounter Time: 10:57 Subjective: Mr. Gautam was seen today in follow-up of altered mental status. He says he feels ok, back to his usual self. No complaints. He denies shortness of breath . He denies chest pain. No nasuea, no lower extremity pain or swelling. - Objective Vital Signs & Weight: Vital Signs (12 hours) Temp Pulse Pulse Resp BP BP BP 03/03/20 10:10 170/89 H 03/03/20 09:19 189/90 H 03/03/20 08:58 66 189/90 H 03/03/20 07:20 97.7 F 63 18 03/03/20 04:00 98.6 F 63 18 178/86 H 03/02/20 23:41 68 204/93 H BP BP BP Pulse Ox 03/03/20 10:10 03/03/20 09:19 03/03/20 08:58 03/03/20 07:20 183/87 H 180/88 H 197/94 H 94 L 03/03/20 04:00 93 L 03/02/20 23:41 Weight Weight 143 lb 3.2 oz I&O: 03/02/20 03/03/20 03/04/20 06:59 06:59 06:59 Intake Total 130 Balance 130 Result Diagrams: 03/03/20 04:00 03/03/20 04:00 Hospitalist ROS - Medication Medications: Active Medications Generic Name Dose Route Start Last Admin Trade Name Freq PRN Reason Stop Dose Admin Amlodipine Besylate 10 mg 03/03/20 09:00 03/03/20 08:25 Norvasc PO 10 mg DAILY SARTHAK Administration Aspirin 81 mg 03/03/20 09:00 03/03/20 08:25 Aspirin Chewable PO 81 mg DAILY SARTHAK Administration Carvedilol 25 mg 03/03/20 08:00 03/03/20 08:25 Coreg PO 25 mg BID-WM SARTHAK Administration Febuxostat 80 mg 03/03/20 09:00 03/03/20 08:25 Uloric PO 80 mg DAILY SARTHAK Administration Hydralazine HCl 10 mg 03/02/20 21:51 03/03/20 09:19 Apresoline SLOW IVP 10 mg Q4H PRN Administration SBP Greater Than 180 Hydralazine HCl 25 mg 03/03/20 09:00 03/03/20 08:25 Apresoline PO 25 mg TID SARTHAK Administration Pantoprazole Sodium 40 mg 03/03/20 09:00 03/03/20 08:25 Protonix PO 40 mg DAILY SARTHAK Administration - Exam Eye: PERRL Heart: RRR, no murmur, no gallops, no rubs, normal peripheral pulses Respiratory: CTAB, no wheezes, no rales, no ronchi, normal chest expansion, no tachypnea, normal percussion Gastrointestinal: soft, non-tender, non-distended, normal bowel sounds, no palpable masses, no hepatomegaly Extremities: no cyanosis, no edema Hosp A/P (1) Metabolic encephalopathy Code(s): G93.41 - METABOLIC ENCEPHALOPATHY Status: Acute (2) ESRD (end stage renal disease) on dialysis Code(s): N18.6 - END STAGE RENAL DISEASE; Z99.2 - DEPENDENCE ON RENAL DIALYSIS Status: Chronic (3) Hypertension Code(s): I10 - ESSENTIAL (PRIMARY) HYPERTENSION Status: Chronic - Plan * Encephalopathy- ? etiology- this seems to have resolved and was possibly related to the medications from the procedure yesterday * ESRD- stable- today is his regular dialysis day- Nephrology is consulted * HTN- blood pressure is elevated- will re-sstart his home medications, and re- evaluate after dialysis. If the trend persists, may need to adjust his medications- could increase Hydralazine if necessary * Hopefully home later today
--- NOTE | 2020-03-03 14:33 | EKG ---
Test Reason : Blood Pressure : / mmHG Vent. Rate : 063 BPM Atrial Rate : 063 BPM P-R Int : 156 ms QRS Dur : 092 ms QT Int : 432 ms P-R-T Axes : 016 -29 -37 degrees QTc Int : 442 ms Normal sinus rhythm Possible Left atrial enlargement Left ventricular hypertrophy Cannot rule out Septal infarct , age undetermined Abnormal ECG Confirmed by DAE ERIC, VLADISLAV ([id number]), supervising editor trailer IRVING LEWIS ([id number]) on 03/03/2020 2:33:12 PM Referred By: Confirmed By:VLADISLAV PEARL MD
[2020-03-03 14:46] LABS: HBSAg Index 0.22 S/CO (0-0.99); Hep B Surf Ag Non-Reactive S/CO (NonReactive)
[2020-03-03 14:52] LABS: HBSAB Concentration 60.21 mIU/mL; Hep B Surf AB Reactive (NonReactive)
[2020-03-03 16:06] VITALS: TEMP 97.8
[2020-03-03 17:46] VITALS: BP 176/81
--- NOTE | 2020-03-03 19:25 | DIS ---
DATE OF ADMISSION: 03/02/2020 DATE OF DISCHARGE: 03/03/2020 PRIMARY CARE PHYSICIAN: Lillian Castillo MD DISCHARGE DIAGNOSES: 1. Metabolic encephalopathy. 2. Hypertensive urgency. 3. End-stage renal disease, on hemodialysis. 4. Hyperlipidemia. 5. Chronic anemia. DISCHARGE MEDICATIONS: 1. Please note that the patient's dose of hydralazine was increased to 50 mg t.i.d. 2. Continue Protonix 40 mg daily. 3. Carvedilol 25 mg twice daily. 4. Tessalon Perles 100 mg t.i.d. 5. Zithromax as directed 250 mg. 6. Norvasc 10 mg daily. 7. Uloric 80 mg daily. 8. Symbicort 160/4.5 one puff twice daily. 9. Aspirin 81 mg daily. CODE STATUS: Full code. ALLERGIES: NO KNOWN DRUG ALLERGIES. HOSPITAL COURSE: Mr. Gautam is a pleasant 59-year-old gentleman, who was admitted to the hospital with altered mental status. The full details of which are outlined in the history and physical. He was monitored overnight. There is no evidence of fever or signs of infection. It is suspected that the altered mental status may have been related to the procedure that he had done earlier that day. It was noted that his blood pressure was consistently high and as a result, the dose of hydralazine was increased from 25 to 50 mg t.i.d. He was back to his baseline. He received dialysis before discharge and is being discharged home and to have close outpatient followup. Job ID: [id number]
--- NOTE | 2020-03-03 21:12 | CON ---
DATE OF CONSULTATION: CONSULTING PHYSICIAN: Jake Garrido MD REQUESTING PHYSICIAN: Hospitalist Program. REASON FOR CONSULTATION: Need for maintenance hemodialysis. IMPRESSION: 1. End-stage renal disease, on hemodialysis. 2. Mental status change probably related to the medication received during procedure today. PLAN: The patient to be dialyzed in accordance with the schedule and have to watch from the Renal standpoint, patient will be due for discharge. HISTORY: A 59-year-old gentleman who had AV fistulogram with intervention. Received Versed and fentanyl which did very well and was cleared to be able to drive home. However, while driving home, the patient seems to have developed altered mental status, for which the patient presented to the ER and was admitted. The need for maintenance hemodialysis necessitated this Renal consultation. PAST MEDICAL HISTORY: Significant for end-stage renal disease, hemodialysis-dependent; chronic anemia; dyslipidemia; hypertension. MEDICATIONS: Reviewed as documented on [facility]. ALLERGIES: NO KNOWN DRUG ALLERGIES. FAMILY HISTORY: Not significantly related to present illness. SOCIAL HISTORY: No alcohol. No tobacco. No illicit drug use. REVIEW OF SYSTEMS: As documented in the body of history. All other systems were reviewed and found not to be significantly related to present illness. PHYSICAL EXAMINATION: GENERAL: The patient was found not to be in any obvious distress. Noted with the following vital signs. VITAL SIGNS: Afebrile, temperature 98.1; pulse 65, respiratory rate of 16, O2 saturations are 97% with a blood pressure 176/77. HEENT EXAMINATION: Unremarkable. CARDIOVASCULAR SYSTEM: First and second heart sounds were heard. RESPIRATORY SYSTEM: Clear to auscultation. DIGESTIVE SYSTEM: Revealed a benign abdomen. Positive bowel sounds. EXTREMITIES: No peripheral edema. SKIN: No new gross rash. LYMPHATICS: No peripheral lymphadenopathy. SUMMARY: This is a 59-year-old gentleman with end-stage renal disease, who presented here with mental status change. Thank you for this consultation. We will follow with you. Job ID: [id number]
== END 2020-03-03 18:30 | disposition home or self-care (01) ==
LOC: ERS 15:36 → 2NO 18:02
PROVIDERS: ADMIT Family Medicine; ATTEND Internal Medicine
DX: G93.41 Metabolic encephalopathy (principal); I16.0 Hypertensive urgency; I12.0 Hypertensive chronic kidney disease with stage 5 chronic kidney disease or end stage renal disease; N18.6 End stage renal disease; D63.1 Anemia in chronic kidney disease; E78.5 Hyperlipidemia, unspecified; F17.200 Nicotine dependence, unspecified, uncomplicated; Z79.82 Long term (current) use of aspirin; Z79.899 Other long term (current) drug therapy; Z99.2 Dependence on renal dialysis
CPT/HCPCS: 71045; 80048; 80053; 82550; 82553; 83605; 83880; 84484 ×2; 85025 ×2; 86706; 87040; 87340; 93005; 96374; 96376; 97139 ×5; 99285; G0378 ×3; 36415; 90935; G0257; J0360

== ENCOUNTER 2020-03-12 11:58 | Inpatient (IN) | payer MEDICARE, BC, OTHER ==
--- NOTE | 2020-03-12 12:38 | RAD ---
EXAM: XR Chest 1 View Portable PROVIDED CLINICAL HISTORY: Shortness of breath COMPARISON: 03/02/2020 FINDINGS: Cardiac silhouette appears enlarged. Prominence of the pulmonary vasculature and pulmonary interstiti um. Bibasilar pleural-parenchymal opacity, slightly less conspicuous on the left compared with prior and new on the right. No evidence for pneumothorax. IMPRESSION: Cardiomegaly and findings compatible with congestive failure/volume overload. Bibasilar pleural-paren chymal opacity. Follow-up recommended.
[2020-03-12 13:08] LABS: Calcium 9.3 mg/dL (7.8-10.44); Chloride 97 mmol/L (98-107); Potassium 5.9 mmol/L (3.5-5.1); Sodium 140 mmol/L (136-145)
[2020-03-12] MEDS ORDERED: Labetalol HCl 100 MG/20 ML VIAL ONE ×2 (13:11→13:12)
[2020-03-12] MEDS ORDERED: Aspirin Chewable 81 MG TAB ONE (13:11)
[2020-03-12] MEDS ORDERED: Cefepime 2 GM VIAL ONE (13:11)
[2020-03-12 13:16] LABS: #Basophils 0.1 thou/uL (0.0-0.2); #Eosinphils 0.1 thou/uL (0.0-0.7); #Lymphocytes 0.5 thou/uL (1.20-3.40); #Monocytes 1.1 thou/uL (0.11-0.59); #Neutrophils 15.6 thou/uL (1.40-6.50); %Basophils 0.3 % (0.0-1.0); %Eosinophils 0.8 % (0.0-10.0); %Lymphocytes 2.7 % (21.0-51.0); %Monocytes 6.3 % (0.0-10.0); %Neutrophils 89.9 % (42.0-75.0); Hemoglobin 9.8 g/dL (14.0-18.0); Mean Corpuscular HGB CONC 32.2 g/dL (32.0-36.0); Mean Corpuscular Hemoglobin 31.3 pg (27.0-31.0); Mean Corpuscular Volume 97.3 fL (78.0-98.0); RBC Distribution Width 19.5 % (11.5-14.5); Red Blood Cell (RBC) Count 3.13 mill/uL (4.70-6.10); White Blood Cell (WBC) Count 17.4 thou/uL (4.8-10.8)
[2020-03-12 13:19] LABS: Anisocytosis SLIGHT = 6-15 cells (100X) (0-5/hpf); MDiff Complete? YES; Mean Platelet Volume 9.5 fL (7.4-10.4); Platelet Count 99 thou/uL (130-400); Platelet Morphology Comment Appears Decreased; Polychromasia SLIGHT = 2-3 cells (100X) (0-2/hpf)
[2020-03-12 13:31] LABS: CKMB 2.1 ng/mL (0-6.6)
[2020-03-12 13:34] LABS: ALT (SGPT) 14 U/L (8-55); AST (SGOT) 43 U/L (5-34); Alkaline Phosphatase 99 U/L (40-110); Anion Gap 30 mmol/L (10-20); BUN (Urea Nitrogen) 97 mg/dL (8.4-25.7); Bilirubin, Total 1.4 mg/dL (0.2-1.2); Calc. Creatinine Clearance 0 mL/min (70-130); Carbon Dioxide 19 mmol/L (22-29); Estimated GFR-MDRD 4; Globulin 3.1 g/dL (2.4-3.5); Glucose 94 mg/dL (70-105); Magnesium 3.2 mg/dL (1.6-2.6); Protein, Total 7.1 g/dL (6.0-8.3)
[2020-03-12] MEDS ORDERED: Vancomycin 1 GM in Premix Bag 1 BAG IVPB SCH ×3 (14:15→21:00)
[2020-03-12] MEDS ORDERED: cloNIDine 0.1 MG TAB ONE (14:51)
[2020-03-12] MEDS ORDERED: Acetaminophen 325 MG TAB PO PRN (15:09)
[2020-03-12] MEDS ORDERED: cloNIDine 0.1 MG TAB PO PRN (15:09)
[2020-03-12] MEDS ORDERED: Benzonatate 100 MG CAP PO PRN (15:09)
[2020-03-12 15:14] LABS: HBSAg Index 0.14 S/CO (0-0.99); Hep B Surf Ag Non-Reactive S/CO (NonReactive)
[2020-03-12] MEDS ORDERED: Vancomycin HCl 750 MG in Sodium Chloride 0.9% 250 ML 250 ML IVPB SCH (15:30)
[2020-03-12] MEDS ORDERED: Vancomycin HCl 500 MG in Sodium Chloride 0.9% 100 ML IVPB SCH (15:30)
[2020-03-12] MEDS ORDERED: HOLD VANCOMYCIN FOR LEVEL >20 FS SCH (15:30)
[2020-03-12] MEDS ORDERED: Vancomycin HCl 250 MG in Sodium Chloride 0.9% 100 ML IVPB SCH (15:30)
[2020-03-12] MEDS ORDERED: Vancomycin 1 GM/200 ML BAG ONE (15:58)
[2020-03-12 16:24] VITALS: BMI 19.3
[2020-03-12] MEDS: Mometasone 200 MCG/Formoterol 5 MCG 120 PUFF INHALER INH SCH (16:35)
[2020-03-12] MEDS: niCARdipine 40MG In NaCl 40 MG/200 ML BAG IVPB SCH ×2 (16:35→16:36)
[2020-03-12] MEDS: Carvedilol 25 MG TAB PO SCH (16:35)
--- NOTE | 2020-03-12 20:06 | CON ---
DATE OF CONSULTATION: 03/12/2020 REASON FOR CONSULTATION: ICU admission, fluid overload, hypoxemia, rule out COVID. HISTORY OF PRESENT ILLNESS: Patient is a 59-year-old male, who apparently has missed his last two sessions of dialysis for reasons that are unclear. He says he basically just forgot. He was in a couple of weeks ago with the same issue. PAST MEDICAL HISTORY: Remarkable for 1. Chronic renal failure requiring hemodialysis. 2. Anemia. 3. Hyperlipidemia. 4. Hypertension. PAST SURGICAL HISTORY: 1. Right nephrectomy. 2. Oral surgery. 3. Hernia repair. 4. Left arm fistula placement. SOCIAL HISTORY: Dips tobacco. Occasionally smokes cigarettes. 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 Does not use illicit drugs. Drink alcohol. Lives at home alone. MEDICATIONS: Prior to admission 1. Aspirin. 2. Budesonide/formoterol. 3. Uloric. 4. Norvasc. 5. Coreg. 6. Apresoline. 7. Protonix. ALLERGIES: NONE. REVIEW OF SYSTEMS: Twelve-point review of systems is otherwise negative. PHYSICAL EXAMINATION: VITAL SIGNS: Pulse is 73, blood pressure 180/88, O2 saturation 100%, and respiratory rate 27. GENERAL: Patient is currently comfortable, on a high flow nasal cannula. HEENT: Unremarkable. NECK: No adenopathy or JVD. CHEST: Diminished breath sounds with crackles at both bases. CARDIOVASCULAR: S1, S2. Regular. ABDOMEN: Soft and nontender. EXTREMITIES: No clubbing or cyanosis. He has a left lower arm fistula with a palpable thrill. LABORATORY DATA: White blood cell count 17.4, hematocrit 30, and platelet count 99. Sodium 140, potassium 5.9, chloride 97, CO2 of 19, BUN 97, creatinine 11.7, and glucose 94. Troponin 0.056. COVID test was sent off. His x-ray shows diffuse pulmonary edema. ASSESSMENT: 1. Fluid overload from missing dialysis. 2. Hypertension with crisis. PLAN: 1. Patient will be placed on nicardipine drip. 2. Emergent dialysis. 3. Follow serial labs. 4. He was given empiric antibiotics by the hospitalist group. Job ID: [id number]
[2020-03-12] MEDS ORDERED: hydrALAZINE 25 MG TAB PO SCH ×2 (21:00→21:30)
--- NOTE | 2020-03-12 21:06 | HP ---
CHIEF COMPLAINT: Shortness of breath. HISTORY OF PRESENT ILLNESS: Mr. Gautam is a pleasant 59-year-old gentleman, who has a history of end-stage renal disease and hypertension. He was recently admitted to our facility for an episode of hypertensive urgency and volume overload. He had an adjustment in his blood pressure medicines, where the dose of hydralazine was increased and after being dialyzed and the blood pressure medication adjustment, he returned to baseline and was discharged home. He said he was doing fine for about the first week when he was at home and then Friday, he says he thought it was and forgot it was his dialysis day and did not go to dialysis. Then later on that evening, he started to feel "bad" with shortness of breath. On Friday, it got a little bit worse and then Friday, he was having significant dyspnea. He also said he had some nausea off and on. But he denies any chest pain. No fevers, no chills, no nausea, no vomiting, etc. When he was evaluated in the ER, he was found to have findings consistent with volume overload with bilateral pulmonary infiltrates. However, his white count was elevated as well and given this, there was concern for not only volume overload, but possible sepsis picture. He is also hyperkalemic as well. In the ER, he was given labetalol as well as aspirin and given a dose of vancomycin as well as Maxipime and he is being admitted for further evaluation. REVIEW OF SYSTEMS: All systems were reviewed and are negative except for that mentioned in the history of present illness. PAST MEDICAL HISTORY: Significant for end-stage renal disease on hemodialysis, hypertension, and hyperlipidemia. PAST SURGICAL HISTORY: He has had a right nephrectomy, hernia repair as a child, left upper extremity fistula, and some type of dental surgery. ALLERGIES: NO KNOWN DRUG ALLERGIES. SOCIAL HISTORY: He lives alone. He denies any alcohol use or drug use. He occasionally dips tobacco. FAMILY HISTORY: There was no history of any heart disease or stroke. CURRENT MEDICATIONS: These include: 1. Hydralazine 50 mg t.i.d. 2. Protonix 40 mg daily. 3. Carvedilol 25 mg twice daily. 4. Tessalon Perles 100 mg daily. 5. Norvasc 10 mg daily. 6. Uloric 80 mg daily. 7. Symbicort 160/4.5 one puff twice daily. 8. Aspirin 81 mg daily. PHYSICAL EXAMINATION: GENERAL: He is alert and oriented. He does appear a bit fatigued. HEENT: Pupils are equal, round, and reactive. Extraocular muscles are intact. His sclerae anicteric. Throat, no erythema, no exudates. NECK: No adenopathy. He does have distended neck veins and elevated jugular venous pressure. LUNGS: He has bilateral rales. CARDIOVASCULAR: He has a normal S1 and S2. There is no S3 or S4. No murmurs, clicks, or rubs. ABDOMEN: Soft. It is nontender and nondistended. Positive for bowel sounds. No rebound. No guarding. EXTREMITIES: He has 1+ edema. No calf tenderness. No joint effusions. NEUROLOGIC: Grossly nonfocal. LABORATORY RESULTS: White blood cell count 17.4, hemoglobin 9.8, hematocrit is 30.4, platelet count is 99. Sodium 140, potassium 5.9, chloride is 97, CO2 is 19, BUN of 97, creatinine 11.7, glucose is 94, and total bilirubin is 1.4. A chest x-ray shows heart size is slightly enlarged and he has bilateral pulmonary infiltrates and possible pleural effusions bilaterally as well. This is by my reading. ASSESSMENT: This is a pleasant 59-year-old gentleman, who presents to the emergency room with hypertensive urgency, volume overload, and a leukocytosis. He will be admitted to the [facility]. His web sizer has been consulted for urgent hemodialysis. The hyperkalemia should resolve with dialysis as well. 1. For leukocytosis, he has been placed empirically on antibiotics. A COVID screen has been done as well as routine blood cultures. 2. Hypertensive urgency. We will need to reconcile and restart his home medications. There is some thought that he could potentially be noncompliant with medications. He does admit that sometimes he may forget to take his medications. He lives alone, but he does have what sounds like a home health nurse coming out. We may need to investigate his support systems and if he does not have home health already, this may need to be added to help with his compliance. Otherwise, the patient will be monitored carefully in the hospital and we will need to potentially make adjustments on his home medications. Job ID: [id number]
[2020-03-12] MEDS: Heparin 5,000 UNITS/ML VIAL SC SCH (21:32)
[2020-03-13 04:19] LABS: #Eosinphils 0.3 thou/uL (0.0-0.7); #Lymphocytes 0.7 thou/uL (1.20-3.40); #Monocytes 0.9 thou/uL (0.11-0.59); #Neutrophils 8.5 thou/uL (1.40-6.50); %Basophils 0.3 % (0.0-1.0); %Eosinophils 2.7 % (0.0-10.0); %Lymphocytes 6.8 % (21.0-51.0); %Monocytes 8.3 % (0.0-10.0); %Neutrophils 81.9 % (42.0-75.0); Hemoglobin 8.1 g/dL (14.0-18.0); Mean Corpuscular HGB CONC 32.4 g/dL (32.0-36.0); Mean Corpuscular Hemoglobin 31.5 pg (27.0-31.0); Mean Corpuscular Volume 97.1 fL (78.0-98.0); Mean Platelet Volume 8.8 fL (7.4-10.4); Platelet Count 72 thou/uL (130-400); RBC Distribution Width 19.1 % (11.5-14.5); Red Blood Cell (RBC) Count 2.58 mill/uL (4.70-6.10); White Blood Cell (WBC) Count 10.4 thou/uL (4.8-10.8)
[2020-03-13] MEDS: hydrALAZINE 20 MG/ML VIAL SLOW IVP PRN (04:21)
[2020-03-13 04:24] LABS: Anion Gap 18 mmol/L (10-20); BUN (Urea Nitrogen) 54 mg/dL (8.4-25.7); Calc. Creatinine Clearance 10 mL/min (70-130); Calcium 8.8 mg/dL (7.8-10.44); Carbon Dioxide 26 mmol/L (22-29); Chloride 100 mmol/L (98-107); Estimated GFR-MDRD 8; Glucose 94 mg/dL (70-105); Potassium 4.3 mmol/L (3.5-5.1); Sodium 140 mmol/L (136-145)
--- NOTE | 2020-03-13 08:37 | PRG ---
DATE OF SERVICE: 03/13/2020 SUBJECTIVE: He complains of a cough. He is breathing much better than he was yesterday. OBJECTIVE: VITAL SIGNS: Temperature 97.8, pulse 62, blood pressure 190/89, and O2 saturation 97%. Twenty-four intake 200, output 3200 by dialysis. HEENT: Unremarkable. NECK: No adenopathy or JVD. LUNGS: Clear. CARDIAC: S1 and S2. Regular. ABDOMEN: Soft and nontender. EXTREMITIES: No edema. LABORATORY DATA: White blood cell count 10.4, hematocrit 25, platelet count 72. Sodium 140, potassium 4.3, chloride 100, CO2 of 26, BUN 54, creatinine 7.3, and glucose 94. His hepatitis B surface antigen is negative. His COVID-19 test is still pending. ASSESSMENT: 1. The patient is currently COVID rule out status, seems to be doing well at this time. 2. Main issue was fluid overload from noncompliance with dialysis. 3. Hypertension. PLAN: 1. He can be transferred to the floor once his COVID test comes back negative. 2. Continue antihypertensive medications. I do not think he needs to be on a Cardene drip. We will follow. Job ID: [id number]
[2020-03-13] MEDS ORDERED: Sodium Chloride 0.65% Nasal 44 ML BOT EA NARE PRN (08:46)
[2020-03-13] MEDS ORDERED: Loperamide HCl 2 MG CAP PO PRN (08:46)
[2020-03-13] MEDS ORDERED: Bisacodyl 5 MG TAB PO PRN (08:46)
[2020-03-13] MEDS ORDERED: Calcium Carbonate 500 MG ChewTAB PO PRN (08:46)
[2020-03-13] MEDS ORDERED: Cepastat Lozenges 1 LOZ PO PRN (08:46)
[2020-03-13] MEDS ORDERED: Ondansetron ODT 4 MG TAB PO PRN (08:46)
[2020-03-13] MEDS ORDERED: Ondansetron PF 4 MG/2 ML Vial IVP PRN (08:46)
[2020-03-13] MEDS ORDERED: Loratadine 10 MG TAB PO PRN (08:46)
[2020-03-13] MEDS ORDERED: Zolpidem Tartrate 5 MG TAB PO PRN (08:46)
[2020-03-13] MEDS ORDERED: HYDROcodone/Acetaminophen 5/325 mg Tablet PO PRN (08:46)
[2020-03-13] MEDS ORDERED: Senokot S 8.6-50 MG TAB PO PRN (08:46)
[2020-03-13] MEDS ORDERED: Amlodipine 10 MG TAB PO SCH (09:00)
[2020-03-13] MEDS ORDERED: Famotidine 20 MG TAB PO SCH (09:00)
[2020-03-13 09:22] LABS: Vancomycin, Random 8.1 ug/mL (See Comment)
[2020-03-13] MEDS: Mometasone 200 MCG/Formoterol 5 MCG 120 PUFF INHALER INH SCH ×2 (10:03→18:31)
[2020-03-13] MEDS: Febuxostat 40 MG TAB PO SCH (10:04)
[2020-03-13] MEDS: Aspirin Chewable 81 MG TAB PO SCH (10:04)
[2020-03-13] MEDS: Carvedilol 25 MG TAB PO SCH ×2 (10:04→16:52)
[2020-03-13] MEDS: hydrALAZINE 25 MG TAB PO SCH ×3 (10:04→21:34)
[2020-03-13] MEDS: Heparin 5,000 UNITS/ML VIAL SC SCH ×3 (10:05→21:34)
[2020-03-13 10:26] LABS: SARS-CoV-2 MS2 Positive; SARS-CoV-2 N Gene Negative; SARS-CoV-2 S Gene Negative; SARS-CoV-2 orf1ab Negative
--- NOTE | 2020-03-13 11:09 | PDOC.HOSPP ---
- Subjective Encounter Date: 03/13/20 Encounter Time: 10:45 Subjective: Patient seen and examined. No new complaints. No overnight events - Objective Vital Signs & Weight: Vital Signs (12 hours) Temp BP Pulse Ox 03/13/20 10:04 191/99 H 03/13/20 04:21 191/99 H 03/13/20 03:00 97.8 F 03/13/20 02:10 94 L 03/12/20 23:23 183/92 H Weight Weight 136 lb 7.458 oz Most Recent Monitor Data Heart Rate from ECG 62 NIBP 181/86 NIBP BP-Mean 117 Respiration from ECG 8 SpO2 97 I&O: 03/12/20 03/13/20 03/14/20 06:59 06:59 06:59 Intake Total 200 Balance 200 Result Diagrams: 03/13/20 03:53 03/13/20 03:53 Radiology Reviewed by me: Yes EKG Reviewed by me: Yes Hospitalist ROS - Review of Systems ENT: denies: ear pain, ear discharge, nose pain, nose discharge, nose congestion , mouth pain, mouth swelling, throat pain, throat swelling, other Respiratory: denies: cough, dry, shortness of breath, hemoptysis, SOB with excertion, pleuritic pain, sputum, wheezing, other Cardiovascular: denies: chest pain, palpitations, orthopnea, paroxysmal noc. dyspnea, edema, light headedness, other Gastrointestinal: denies: nausea, vomiting, abdominal pain, diarrhea, constipation, melena, hematochezia, other Genitourinary: denies: dysuria, frequency, incontinence, hematuria, retention, other Musculoskeletal: denies: neck pain, shoulder pain, arm pain, back pain, hand pain, leg pain, foot pain, other - Medication Medications: Active Medications Generic Name Dose Route Start Last Admin Trade Name Freq PRN Reason Stop Dose Admin Amlodipine Besylate 10 mg 03/13/20 09:00 03/13/20 10:04 Norvasc PO 10 mg DAILY SARTHAK Administration Aspirin 81 mg 03/13/20 09:00 03/13/20 10:04 Aspirin Chewable PO 81 mg DAILY SARTHAK Administration Carvedilol 25 mg 03/12/20 17:00 03/13/20 10:04 Coreg PO 25 mg BID-WM SARTHAK Administration Clonidine 0.1 mg 03/12/20 15:09 03/12/20 23:23 Catapres PO 0.1 mg Q4H PRN Administration SBP Greater Than 170; HR >60 Febuxostat 80 mg 03/13/20 09:00 03/13/20 10:04 Uloric PO 80 mg DAILY SARTHAK Administration Heparin Sodium (Porcine) 5,000 units 03/12/20 21:00 03/13/20 10:05 Heparin SC 5,000 units TID SARTHAK Administration Hydralazine HCl 10 mg 03/12/20 15:09 03/13/20 04:21 Apresoline SLOW IVP 10 mg Q4H PRN Administration SBP > 180 and HR < 70 Hydralazine HCl 100 mg 03/13/20 09:00 03/13/20 10:04 Apresoline PO 100 mg TID SARTHAK Administration Mometasone Furoate/Formoterol Fumar 2 puff 03/12/20 18:30 03/13/20 10:03 Dulera 200 Mcg/5 Mcg Inhaler INH Not Given BID-RT SARTHAK Pantoprazole Sodium 40 mg 03/13/20 09:00 03/13/20 10:04 Protonix PO 40 mg DAILY SARTHAK Administration - Exam General Appearance: NAD, awake alert Eye: PERRL, anicteric sclera ENT: normocephalic atraumatic, no oropharyngeal lesions Neck: supple, symmetric, no JVD Heart: RRR, no murmur, no gallops Respiratory: CTAB, no wheezes, no rales Gastrointestinal: soft, non-tender, non-distended, normal bowel sounds Extremities: no cyanosis, no clubbing Skin: normal turgor, no lesions Neurological: no focal deficits Musculoskeletal: normal tone, normal strength Psychiatric: normal affect, normal behavior Hosp A/P (1) Acute respiratory failure with hypoxia and hypercapnia Code(s): J96.01 - ACUTE RESPIRATORY FAILURE WITH HYPOXIA; J96.02 - ACUTE RESPIRATORY FAILURE WITH HYPERCAPNIA Status: Acute (2) Anemia of renal disease Code(s): D63.1 - ANEMIA IN CHRONIC KIDNEY DISEASE Status: Chronic (3) Hypertensive urgency Code(s): I16.0 - HYPERTENSIVE URGENCY Status: Resolved (4) Volume overload Code(s): E87.70 - FLUID OVERLOAD, UNSPECIFIED Status: Resolved Qualifiers: Hypervolemia type: unspecified Qualified Code(s): E87.70 - Fluid overload, unspecified (5) Dyslipidemia Code(s): E78.5 - HYPERLIPIDEMIA, UNSPECIFIED Status: Chronic (6) ESRD (end stage renal disease) on dialysis Code(s): N18.6 - END STAGE RENAL DISEASE; Z99.2 - DEPENDENCE ON RENAL DIALYSIS Status: Chronic (7) Hypertension Code(s): I10 - ESSENTIAL (PRIMARY) HYPERTENSION Status: Chronic - Plan old records reviewed/req, continue antibiotics covid-19 ruled out on empiric cefepime and vancomycin transfer to tele medication reviewed and continue symptomatic treatment will adjust medication
[2020-03-13] MEDS ORDERED: Cefepime 0.5 GM, Admixture Fee 1 EACH in Sodium Chloride 0.9% 100 ML IVPB SCH ×2 (14:00→20:00)
--- NOTE | 2020-03-13 16:40 | PRG ---
DATE OF SERVICE: 03/13/2020 SUBJECTIVE: The patient was seen and examined at dialysis. Noted with the following vital signs. OBJECTIVE: VITAL SIGNS: Blood pressure of 145/85, respiratory rate of 18, O2 saturations are 96%. HEENT: Unremarkable. CARDIOVASCULAR SYSTEM: First and second heart sounds were heard. RESPIRATORY SYSTEM: Clear to auscultation. DIGESTIVE SYSTEM: Revealed a benign abdomen. EXTREMITIES: No peripheral edema. SKIN: No new gross rash. LYMPHATICS: No peripheral lymphadenopathy. IMPRESSION: 1. End-stage renal disease, on dialysis. 2. Hypertensive urgency. 3. Respiratory distress, improved. PLAN: 1. We will continue to adjust antihypertensive medications to optimize hemodynamics. 2. The patient to be dialyzed today with ultrafiltration as tolerated by hemodynamics. 3. Further management to be dependent on the clinical course. Job ID: [id number]
--- NOTE | 2020-03-13 23:49 | CON ---
DATE OF CONSULTATION: REQUESTING PHYSICIAN: ER physician. REASON FOR CONSULTATION: Need for maintenance hemodialysis. IMPRESSION: 1. End-stage renal disease on Friday, Friday, Friday schedule. Missed dialysis on Friday. 2. Respiratory distress likely in the context of missed dialysis. 3. Hypertensive urgency. PLAN: 1. The patient to be dialyzed and then subsequently on Friday will be placed back on his regular schedule of Friday, Friday, Friday dialysis with ultrafiltration as tolerated by hemodynamics. 2. Increase hydralazine to optimize hemodynamics of the patient. 3. Management will be dependent on the clinical course. HISTORY OF PRESENT ILLNESS: History is that of a 59-year-old gentleman with end-stage renal disease, hemodialysis dependent, who skipped dialysis on Friday for no reason apart from the fact that the patient's stated he was not feeling well. In any case, the patient presented here with shortness of breath, having missed dialysis, and noted to be severely hypertensive. The need for maintenance hemodialysis necessitated this consultation. PAST MEDICAL HISTORY: Significant for end-stage renal disease, hypertension, dyslipidemia, anxiety disorder. MEDICATIONS: Reviewed as documented on [employer] [facility]. ALLERGIES: NO KNOWN DRUG ALLERGIES. FAMILY HISTORY: Nonsignificantly related to present illness. SOCIAL HISTORY: The patient lives alone. No alcohol. No tobacco. No illicit drug use. REVIEW OF SYSTEMS: As documented in the body of the history. All the other systems were reviewed and found not to be significantly related to present illness. PHYSICAL EXAMINATION: GENERAL: The patient was found to be in some respiratory distress with elevated blood pressure. HEENT: Unremarkable. CARDIOVASCULAR: First and second heart sounds were heard. RESPIRATORY: Clear to auscultation. DIGESTIVE: Revealed a benign abdomen. EXTREMITIES: Trace edema. SUMMARY: A 59-year-old gentleman with end-stage renal disease, presented here with shortness of breath in the context of missed dialysis. Thank you for this consultation. We will follow with you. Job ID: [id number]
[2020-03-14] MEDS: hydrALAZINE 20 MG/ML VIAL SLOW IVP PRN (03:30)
[2020-03-14] MEDS: Mometasone 200 MCG/Formoterol 5 MCG 120 PUFF INHALER INH SCH (07:24)
[2020-03-14] MEDS: hydrALAZINE 25 MG TAB PO SCH (08:09)
[2020-03-14] MEDS: Carvedilol 25 MG TAB PO SCH (08:10)
[2020-03-14] MEDS: Aspirin Chewable 81 MG TAB PO SCH (08:10)
[2020-03-14] MEDS: Febuxostat 40 MG TAB PO SCH (08:10)
[2020-03-14] MEDS: Heparin 5,000 UNITS/ML VIAL SC SCH (08:11)
[2020-03-14] MEDS ORDERED: NIFEdipine XL 60 MG TAB PO SCH (09:00)
--- NOTE | 2020-03-14 09:50 | PDOC.HOSPP ---
- Subjective Encounter Date: 03/14/20 Encounter Time: 08:20 Subjective: Patient seen and examined. No new complaints. No overnight events - Objective Vital Signs & Weight: Vital Signs (12 hours) Temp Pulse Resp BP Pulse Ox 03/14/20 07:14 99.1 F 66 18 184/85 H 98 03/14/20 05:11 174/84 H 03/14/20 03:17 98.2 F 64 16 186/82 H 93 L 03/13/20 23:48 61 159/79 H Weight Weight 136 lb 10.986 oz Most Recent Monitor Data Heart Rate from ECG 66 NIBP 122/74 NIBP BP-Mean 90 Respiration from ECG 24 SpO2 98 I&O: 03/13/20 03/14/20 03/15/20 06:59 06:59 06:59 Intake Total 200 1080 Balance 200 1080 Result Diagrams: 03/13/20 03:53 03/13/20 03:53 Additional Labs: Accuchecks 03/13/20 20:32 POC Glucose 130 H Radiology Reviewed by me: Yes EKG Reviewed by me: Yes Hospitalist ROS - Review of Systems ENT: denies: ear pain, ear discharge, nose pain, nose discharge, nose congestion , mouth pain, mouth swelling, throat pain, throat swelling, other Respiratory: denies: cough, dry, shortness of breath, hemoptysis, SOB with excertion, pleuritic pain, sputum, wheezing, other Cardiovascular: denies: chest pain, palpitations, orthopnea, paroxysmal noc. dyspnea, edema, light headedness, other Gastrointestinal: denies: nausea, vomiting, abdominal pain, diarrhea, constipation, melena, hematochezia, other Genitourinary: denies: dysuria, frequency, incontinence, hematuria, retention, other Musculoskeletal: denies: neck pain, shoulder pain, arm pain, back pain, hand pain, leg pain, foot pain, other - Medication Medications: Active Medications Generic Name Dose Route Start Last Admin Trade Name Freq PRN Reason Stop Dose Admin Aspirin 81 mg 03/13/20 09:00 03/14/20 08:10 Aspirin Chewable PO 81 mg DAILY SARTHAK Administration Carvedilol 25 mg 03/12/20 17:00 03/14/20 08:10 Coreg PO 25 mg BID-WM SARTHAK Administration Clonidine 0.1 mg 03/12/20 15:09 03/12/20 23:23 Catapres PO 0.1 mg Q4H PRN Administration SBP Greater Than 170; HR >60 Febuxostat 80 mg 03/13/20 09:00 03/14/20 08:10 Uloric PO 80 mg DAILY SARTHAK Administration Heparin Sodium (Porcine) 5,000 units 03/12/20 21:00 03/14/20 08:11 Heparin SC Not Given TID SARTHAK Hydralazine HCl 10 mg 03/12/20 15:09 03/14/20 03:30 Apresoline SLOW IVP 10 mg Q4H PRN Administration SBP > 180 and HR < 70 Hydralazine HCl 100 mg 03/13/20 09:00 03/14/20 08:09 Apresoline PO 100 mg TID SARTHAK Administration Mometasone Furoate/Formoterol Fumar 2 puff 03/12/20 18:30 03/14/20 07:24 Dulera 200 Mcg/5 Mcg Inhaler INH 2 puff BID-RT SARTHAK Administration Nifedipine 60 mg 03/14/20 09:00 03/14/20 08:10 Procardia Xl PO 60 mg DAILY SARTHAK Administration Pantoprazole Sodium 40 mg 03/13/20 09:00 03/14/20 08:10 Protonix PO 40 mg DAILY SARTHAK Administration Sodium Chloride 10 ml 03/14/20 09:00 03/14/20 08:10 Flush - Normal Saline IVF 10 ml Q12HR SARTHAK Administration - Exam General Appearance: NAD, awake alert Eye: PERRL, anicteric sclera ENT: normocephalic atraumatic, no oropharyngeal lesions Neck: supple, symmetric, no JVD Heart: RRR, no murmur, no gallops Respiratory: CTAB, no wheezes, no rales Gastrointestinal: soft, non-tender, non-distended, normal bowel sounds Extremities: no cyanosis, no clubbing Skin: normal turgor, no lesions Neurological: no focal deficits Musculoskeletal: normal tone, normal strength Psychiatric: normal affect, normal behavior Hosp A/P (1) Acute respiratory failure with hypoxia and hypercapnia Code(s): J96.01 - ACUTE RESPIRATORY FAILURE WITH HYPOXIA; J96.02 - ACUTE RESPIRATORY FAILURE WITH HYPERCAPNIA Status: Acute (2) Anemia of renal disease Code(s): D63.1 - ANEMIA IN CHRONIC KIDNEY DISEASE Status: Chronic (3) Hypertensive urgency Code(s): I16.0 - HYPERTENSIVE URGENCY Status: Resolved (4) Volume overload Code(s): E87.70 - FLUID OVERLOAD, UNSPECIFIED Status: Resolved Qualifiers: Hypervolemia type: unspecified Qualified Code(s): E87.70 - Fluid overload, unspecified (5) Dyslipidemia Code(s): E78.5 - HYPERLIPIDEMIA, UNSPECIFIED Status: Chronic (6) ESRD (end stage renal disease) on dialysis Code(s): N18.6 - END STAGE RENAL DISEASE; Z99.2 - DEPENDENCE ON RENAL DIALYSIS Status: Chronic (7) Hypertension Code(s): I10 - ESSENTIAL (PRIMARY) HYPERTENSION Status: Chronic - Plan old records reviewed/req covid-19 ruled out on empiric cefepime and vancomycin transfer to [facility] medication reviewed and continue symptomatic treatment will adjust medication 03/14/20 change to procardia xl DC amlodipine DC home
--- NOTE | 2020-03-14 11:16 | DIS ---
DATE OF ADMISSION: 03/12/2020 DATE OF DISCHARGE: 03/14/2020 PRIMARY CARE PHYSICIAN: Lillian Castillo MD. DISCHARGE DISPOSITION: Home. PRIMARY DISCHARGE DIAGNOSES: 1. Acute respiratory failure with hypoxia, resolved. 2. Volume overload, corrected. 3. Hypertensive urgency, corrected. 4. Leukocytosis, resolved and sepsis ruled out. SECONDARY DISCHARGE DIAGNOSES: Hypertension; dyslipidemia; end-stage renal disease, on hemodialysis; anemia of renal disease; medication noncompliance. PRIMARY PROCEDURE/OPERATION: Maintenance hemodialysis. RADIOLOGICAL INVESTIGATION: Chest x-ray on admission showed cardiomegaly with volume overload status. Blood culture negative. DISCHARGE MEDICATIONS: 1. Aspirin 81 mg p.o. daily. 2. Symbicort one puff inhalation b.i.d. 3. Uloric 80 mg p.o. daily. 4. Tessalon 100 mg t.i.d. p.r.n. 5. Coreg 25 mg p.o. b.i.d. 6. Omnicef 300 mg p.o. daily for 7 days. 7. Hydralazine 100 mg t.i.d. 8. Procardia XL 60 mg p.o. daily. 9. Protonix 40 mg p.o. daily. CONTRAINDICATION: None. CODE STATUS: Full code. INPATIENT AIRCRAFT MAINTENANCE DIRECTOR: Dr. Joseph was following for maintenance hemodialysis. Dr. Hall was consulted while in the hospital. TEST RESULT PENDING ON DISCHARGE: None. ALLERGIES: NO KNOWN DRUG ALLERGIES. DISCHARGE PLAN: Post-hospital, the patient will follow up with primary care physician in 1 week and the patient will follow up with Nephrology. HOSPITAL COURSE: A 59-year-old male with above-mentioned medical problem, who was admitted by Dr. Sauer. Please see her H and P for further details. The patient was noncompliant with his dialysis and he was complaining of shortness of breath. In the emergency room, chest x-ray was consistent with fluid overload status as well as there was bibasilar infiltration. He had leukocytosis and that is why the patient was empirically treated with Rocephin and vancomycin while in hospital. His cultures remain negative. He had initially hypoxic respiratory failure from fluid overload status that was also resolved with his dialysis. The patient had negative COVID test. The patient was changed to Omnicef for another 7 days. The patient was having hypertensive urgency while in hospital and that is why we adjusted blood pressure medication. We have provided the patient education about medication compliance as well as dietary education given. We have changed amlodipine to Procardia XL and we have increased hydralazine from 50 to 100 mg t.i.d. Rest of medication, he will continue as per previous. The patient is seen and examined in the bedside today. The patient was initially admitted to [facility], and subsequently, he was transferred to telemetry floor. He will continue all his previous medication as well as he will continue his regular maintenance medication. The patient is seen and examined in the bedside today. Overall, the patient is medically stable for discharge today. Job ID: [id number]
[2020-03-14 14:00] VITALS: BP 159/76; TEMP 97.5
--- NOTE | 2020-03-14 16:01 | PRG ---
DATE OF SERVICE: 03/14/2020 OBJECTIVE: VITAL SIGNS: The patient is noted to be afebrile. Temperature 99.1, pulse 66, respiratory rate of 18, blood pressure 159/79, O2 saturation of 98%. HEENT: Unremarkable. CARDIOVASCULAR: First and second heart sounds were heard. RESPIRATORY: Clear to auscultation. DIGESTIVE SYSTEM: Revealed a benign abdomen with positive bowel sounds. EXTREMITIES: No peripheral edema. SKIN: No new gross rash. LYMPHATICS: No peripheral lymphadenopathy. IMPRESSION: 1. End-stage renal disease, hemodialysis dependent. 2. Respiratory distress. 3. Hypertensive urgency. PLAN: 1. The patient seems to be doing much better. 2. From the renal standpoint, the patient is due for discharge. Job ID: [id number]
--- NOTE | 2020-03-14 17:28 | PQF ---
DATE: 03-14-20 ATTN: DR. SELVIN CASILLAS Please exercise your independent, professional judgment in responding to the clarification form. Clinical indicators are provided on the bottom of this form for your review Please check appropriate box(s) to clarify if the following diagnosis has been ruled in or ruled out: PNEUMONIA [ x] Ruled in diagnosis [ x ] Continue to treat [ ] Resolved [ ] Ruled out diagnosis [ ] Other diagnosis [ ] Unable to determine In addition, please specify: Present on Admission (POA): [ x ] Yes [ ] No [ ] Unable to determine For continuity of documentation, please document condition throughout progress notes and discharge summary. Thank You. CLINICAL INDICATORS - SIGNS / SYMPTOMS / LABS / RESULTS AND LOCATION IN MR: ER NOTES 03-12-20: REPORTS CHILLS, FATIGUE, REPORTS FEVER, 100.1, SOB ER DX: VOLUME OVERLOAD, HYPERKALEMIA, PNEUMONIA, RESP FAILURE H&P 03-12-20: CONSISTANT WITH VOLUME OVERLOAD WITH BILATERAL PULMONARY INFILTRATES, LEUKOCYTOSIS RISK FACTORS / RESULTS AND LOCATION IN MR: ER NOTES 03-12-20: REPORTS CHILLS, FATIGUE, REPORTS FEVER, 100.1, SOB H&P 03-12-20: CONSISTANT WITH VOLUME OVERLOAD WITH BILATERAL PULMONARY INFILTRATES, LEUKOCYTOSIS TREATMENTS / RESULTS AND LOCATION IN MR: ER NOTES 03-12-20: VANCOCIN IV, CLONDINE PO, MAXIPIME IV (This form is maintained as a part of the permanent medical record) 2014 [employer]. All Rights Reserved [email or web address]
== END 2020-03-14 14:19 | disposition home health service (06) | DRG 189 ==
LOC: ERS 11:58 → CCU 16:04 → 2NO 03-13 16:36
PROVIDERS: ADMIT Internal Medicine; ATTEND Internal Medicine
PROC: 5A1D70Z Performance of Urinary Filtration, Intermittent, Less than 6 Hours Per Day (ICD-10-PCS; principal; 2020-03-13)
DX: J96.01 Acute respiratory failure with hypoxia (principal); N18.6 End stage renal disease; I12.0 Hypertensive chronic kidney disease with stage 5 chronic kidney disease or end stage renal disease; E87.70 Fluid overload, unspecified; J96.02 Acute respiratory failure with hypercapnia; E78.5 Hyperlipidemia, unspecified; I16.0 Hypertensive urgency; D72.829 Elevated white blood cell count, unspecified; D63.1 Anemia in chronic kidney disease; Z20.828 Contact with and (suspected) exposure to other viral communicable diseases; E78.00 Pure hypercholesterolemia, unspecified; F17.220 Nicotine dependence, chewing tobacco, uncomplicated; E87.5 Hyperkalemia; Z79.82 Long term (current) use of aspirin; Z99.2 Dependence on renal dialysis; Z91.14 Patient's other noncompliance with medication regimen; Z79.899 Other long term (current) drug therapy; Z91.15 Patient's noncompliance with renal dialysis
CPT/HCPCS: 36415; 36416; 71045; 80048; 80053; 80202; 82553; 83605; 83735; 84484; 85025; 87040; 87340; 87635; 90935; 93005; 94760; 96365; 96375; G0257; J0360; J0692; J1644; J3370; J3490; J7050; U0003

== ENCOUNTER 2020-10-09 01:28 | Inpatient (IN) | payer MEDICARE, BC ==
[2020-10-09] MEDS ORDERED: Nitroglycerin 50 MG/250 ML BOT 250 ML ONE (01:44)
[2020-10-09 02:01] LABS: #Eosinphils 0.1 thou/uL (0.0-0.7); #Lymphocytes 0.5 thou/uL (1.20-3.40); #Monocytes 0.8 thou/uL (0.11-0.59); #Neutrophils 16.5 thou/uL (1.40-6.50); %Basophils 0.2 % (0.0-1.0); %Eosinophils 0.7 % (0.0-10.0); %Lymphocytes 2.9 % (21.0-51.0); %Monocytes 4.2 % (0.0-10.0); Hemoglobin 11.1 g/dL (14.0-18.0); Mean Corpuscular HGB CONC 34.1 g/dL (32.0-36.0); Mean Corpuscular Hemoglobin 34.4 pg (27.0-31.0); Mean Platelet Volume 7.4 fL (7.4-10.4); Platelet Count 200 thou/uL (130-400); RBC Distribution Width 16.9 % (11.5-14.5); Red Blood Cell (RBC) Count 3.23 mill/uL (4.70-6.10); White Blood Cell (WBC) Count 17.9 thou/uL (4.8-10.8)
[2020-10-09 02:05] LABS: Actual Bicarbonate (HCO3a) 19.9 mEq/L (22-28); Analyzer IN Cardio ER; Calcium, Ionized (arterial) 1.16 mmol/L (1.12-1.30); Carboxyhemoglobin (COHb) 1.7 gm% (0.0-3.0); Hemoglobin (Hb) 11.4 g/dL (14.0-18.0); Potassium - ABG Lab 3.99 mmol/L (3.70-5.30); pH, Arterial 7.45 (7.35-7.45)
[2020-10-09 02:06] LABS: O2 Tension (PaO2), arterial 55.7 mmHg (80.0-100.0)
[2020-10-09 02:07] LABS: Puncture Site RRA
[2020-10-09] MEDS ORDERED: Ondansetron PF 4 MG/2 ML Vial ONE (02:07)
[2020-10-09 02:21] LABS: ALT (SGPT) 14 U/L (8-55); AST (SGOT) 15 U/L (5-34); Alkaline Phosphatase 89 U/L (40-110); Anion Gap 29 mmol/L (10-20); BUN (Urea Nitrogen) 77 mg/dL (8.4-25.7); Bilirubin, Total 1.1 mg/dL (0.2-1.2); Calc. Creatinine Clearance 0 mL/min (70-130); Calcium 9.5 mg/dL (7.8-10.44); Carbon Dioxide 19 mmol/L (22-29); Chloride 97 mmol/L (98-107); Globulin 2.8 g/dL (2.4-3.5); Glucose 98 mg/dL (70-105); Potassium 4.2 mmol/L (3.5-5.1); Protein, Total 6.8 g/dL (6.0-8.3); Sodium 141 mmol/L (136-145)
[2020-10-09 02:43] LABS: CKMB 4.3 ng/mL (0-6.6)
[2020-10-09] MEDS ORDERED: Cefepime 2 GM VIAL ONE (02:45)
[2020-10-09] MEDS ORDERED: Vancomycin 1 GM/200 ML BAG ONE (02:45)
[2020-10-09 02:52] LABS: SARS-CoV-2 NAA Rapid Test Not Detected (NotDetected)
[2020-10-09] MEDS ORDERED: Acetaminophen 500 MG TAB ONE (03:23)
[2020-10-09 04:21] VITALS: BMI 21.4
[2020-10-09] MEDS ORDERED: Ondansetron PF 4 MG/2 ML Vial IVP PRN ×2 (04:30→05:00)
[2020-10-09] MEDS ORDERED: Ondansetron ODT 4 MG TAB SL PRN (04:30)
[2020-10-09] MEDS ORDERED: Nitroglycerin 50 MG/250 ML BOT 250 ML IVPB SCH (04:30)
[2020-10-09] MEDS ORDERED: Promethazine HCl 12.5 MG in Sodium Chloride 0.9% 50 ML IVPB PRN (05:00)
[2020-10-09] MEDS ORDERED: niCARdipine 40MG In NaCl 40 MG/200 ML BAG IVPB SCH (05:00)
[2020-10-09] MEDS ORDERED: Labetalol HCl 100 MG/20 ML VIAL SLOW IVP PRN (05:00)
[2020-10-09] MEDS ORDERED: Acetaminophen 325 MG TAB PO PRN (05:00)
[2020-10-09] MEDS ORDERED: HYDROcodone/Acetaminophen 5/325 mg Tablet PO PRN (05:00)
[2020-10-09] MEDS ORDERED: Guaifenesin DM 100-10/5 ML UDCUP PO PRN (05:00)
[2020-10-09] MEDS ORDERED: hydrALAZINE 20 MG/ML VIAL SLOW IVP PRN (05:00)
[2020-10-09] MEDS ORDERED: cloNIDine 0.1 MG TAB PO PRN (05:00)
[2020-10-09] MEDS ORDERED: ALPRAZolam 0.25 MG TAB PO PRN (05:04)
--- NOTE | 2020-10-09 05:06 | PDOC.HHP ---
Hospitalist HPI - History of Present Illness Shortness of breath History of Present Illness: Patient is a 59 year old male with PMh HTN, ESRD on HD MWF, HLD who presents to hospital for SOB x 1 day,in ED patient was in respiratory distress, RR was in the 70s, satuation returned to 95% on facemask. Patient gets HD on MWF, reports no missed sessions and completed all sessions with no issues and did not have to stop early. Vitals in ED notable for HTN crisis w/ systolic in 240s. denies chest pain, sob currenly but has a headache. pateint was on NTG drip however this did not resolve HTN and was switched to cardene, EJG with PVCs, no stemi. WBC 17, hgb 11, abg hypoxic with normal pH, tni 0.09, bnp 1100, patient admitted to ICU for cardene drip to treat HTN emergency, ED physician reached out to Dr Joseph (patients [employer] dean). Hospitalist ROS - Review of Systems Constitutional: reports: weakness, malaise, other (headache). denies: fever, chills, sweats Eyes: denies: pain, vision change, conjunctivae inflammation, eyelid inflammation, redness, other ENT: denies: ear pain, ear discharge, nose pain, nose discharge, nose congestion, mouth pain, mouth swelling, throat pain, throat swelling, other Respiratory: reports: shortness of breath, SOB with excertion. denies: cough, dry, hemoptysis, pleuritic pain, sputum, wheezing, other Cardiovascular: denies: chest pain, palpitations, orthopnea, paroxysmal noc. dyspnea, edema, light headedness, other Gastrointestinal: denies: nausea, vomiting, abdominal pain, diarrhea, constipation, melena, hematochezia, other Genitourinary: denies: dysuria, frequency, incontinence, hematuria, retention, other Musculoskeletal: denies: neck pain, shoulder pain, arm pain, back pain, hand pain, leg pain, foot pain, other Neurological: denies: weakness, numbness, incoordination, change in speech, confusion, seizures, other All other systems reviewed; all pertinent +/- noted in HPI/Subj - Medication Medications: VITAL SIGNS FriOct 09, 2020 03:41 TIAGO De Luna Julia BP: 216/112 MAP: 146 Pulse: 91 Resp: 28 Pain: 0 O2 sat: 97 on (4L Oxygen) Time: 10/09/2020 03:41. Hospitalist History - Past Medical History Renal/: reports: Chronic renal failure Other Medical History: HTN ESRD on HD MWF HLD - Past Surgical History Other Surgical History: nephrectomy, on the right, Oral sx, hernia repair as child. FISTULA UPPER LEFT ARM. - Family History Family History: reports: no pertinent history - Social History Tobacco Type: chewing tobacco Alcohol: reports: None Drugs: reports: none - Exam General Appearance: NAD, awake alert Eye: PERRL, anicteric sclera ENT: normocephalic atraumatic, no oropharyngeal lesions, moist mucosa Neck: supple, symmetric, no JVD, no thyromegaly, no lymphadenopathy, no carotid bruit Heart: RRR, no murmur, no gallops, no rubs, normal peripheral pulses Respiratory: CTAB, no wheezes, normal chest expansion, no tachypnea, normal percussion Respiratory - other findings: crackles Gastrointestinal: soft, non-tender, non-distended, normal bowel sounds, no palpable masses, no hepatomegaly, no splenomegaly, no bruit Extremities: no cyanosis, no clubbing, no edema Skin: normal turgor, no lesions, no rashes Neurological: cranial nerve grossly intact, normal sensation to touch, no weakness, no focal deficits, no new deficit Musculoskeletal: normal tone, normal strength, no muscle wasting Psychiatric: normal affect, normal behavior, A&O x 3 Hospitalist Results - Labs Result Diagrams: 10/09/20 01:48 10/09/20 01:48 Lab results: WBC 17.9 thou/uL (4.8-10.8) H 10/09/20 01:48 Hgb 11.1 g/dL (14.0-18.0) L 10/09/20 01:48 Hct 32.6 % (42.0-52.0) L 10/09/20 01:48 MCV 101.0 fL (78.0-98.0) H 10/09/20 01:48 Plt Count 200 thou/uL (130-400) 10/09/20 01:48 Neutrophils % 92.0 % (42.0-75.0) H 10/09/20 01:48 ABG pH 7.45 (7.35-7.45) 10/09/20 01:47 ABG pCO2 29.0 mmHg (35.0-45.0) L 10/09/20 01:47 ABG pO2 55.7 mmHg (80.0-100.0) L* 10/09/20 01:47 Sodium 141 mmol/L (136-145) 10/09/20 01:48 Potassium 4.2 mmol/L (3.5-5.1) 10/09/20 01:48 Chloride 97 mmol/L (98-107) L 10/09/20 01:48 Carbon Dioxide 19 mmol/L (22-29) L 10/09/20 01:48 BUN 77 mg/dL (8.4-25.7) H 10/09/20 01:48 Creatinine 10.74 mg/dL (0.7-1.3) H 10/09/20 01:48 Glucose 98 mg/dL (70-105) 10/09/20 01:48 Lactic Acid 1.2 mmol/L (0.5-2.2) 10/09/20 01:48 Calcium 9.5 mg/dL (7.8-10.44) 10/09/20 01:48 Total Bilirubin 1.1 mg/dL (0.2-1.2) 10/09/20 01:48 AST 15 U/L (5-34) 10/09/20 01:48 ALT 14 U/L (8-55) 10/09/20 01:48 Alkaline Phosphatase 89 U/L (40-110) 10/09/20 01:48 CK-MB (CK-2) 4.3 ng/mL (0-6.6) 10/09/20 01:48 Troponin I 0.091 ng/mL (< 0.028) H 10/09/20 01:48 B-Natriuretic Peptide 1152.5 pg/mL (0-100) H 10/09/20 01:48 Serum Total Protein 6.8 g/dL (6.0-8.3) 10/09/20 01:48 Albumin 4.0 g/dL (3.5-5.0) 10/09/20 01:48 - EKG Interpretation EKG: NSR, 95 bpm, no STEMI, PVCs Hospitalist H&P A/P - Plan Plan: Patient is a 59 year old male with PMh HTN, ESRD on HD MWF, HLD who presents to hospital for SOB x 1 day. # HTN emergency # ESRD w/ volume overload - admit to ICU - continue cardene - home HTN medications restarted and PRN HTN medications ordered - ED physician reached out to Dr Joseph (patients [employer] dean). # suspected pneumonia - CXR with what looks like L sided or bilateral in filtrates, continue vancomycin and cefepime and follow up CT chest and CXR reports in the morning # sepsis - WBC 17, RR 40s, sepsis likely secondary to pnuemonia and volume overload - treat as above, follow cultures # elevated troponin - tni 0.09, bnp 1100, treat HTN emergency as above and trend troponin, no STEMI on EKG DVT/GI ppx full code 55 minutes critical care time
[2020-10-09] MEDS ORDERED: Amlodipine 10 MG TAB PO SCH ×2 (05:14→09:00)
[2020-10-09] MEDS ORDERED: Vancomycin HCl 500 MG in Sodium Chloride 0.9% 100 ML IVPB SCH (05:15)
[2020-10-09] MEDS ORDERED: hydrALAZINE 25 MG TAB PO SCH (05:15)
[2020-10-09] MEDS ORDERED: Vancomycin HCl 250 MG in Sodium Chloride 0.9% 100 ML IVPB SCH (05:15)
[2020-10-09] MEDS ORDERED: HOLD VANCOMYCIN FOR LEVEL >20 FS SCH (05:15)
[2020-10-09] MEDS ORDERED: Vancomycin 1 GM in Premix Bag 1 BAG IVPB SCH (05:15)
[2020-10-09] MEDS ORDERED: niCARdipine 50 MG in Sodium Chloride 0.9% 250 ML 250 ML IVPB SCH (05:15)
[2020-10-09] MEDS ORDERED: Vancomycin HCl 750 MG in Sodium Chloride 0.9% 250 ML 250 ML IVPB SCH (05:15)
[2020-10-09] MEDS ORDERED: Vancomycin Sliding Scale 1 EACH FS ONE (05:15)
[2020-10-09] MEDS ORDERED: Sodium Chloride 0.9% 1,000 ML IV SCH (06:00)
[2020-10-09] MEDS ORDERED: methylPREDNISolone Sod Succ 40 MG VIAL IVP SCH (06:00)
[2020-10-09] MEDS ORDERED: Carvedilol 25 MG TAB PO SCH (08:00)
--- NOTE | 2020-10-09 08:11 | RAD ---
PORTABLE CHEST: INDICATION: Dyspnea. CCU followup. COMPARISON: 07/21/2020 exam. FINDINGS: There are bilateral alveolar infiltrates with confluent infiltrates in the mid and lower lungs bilate rally. Hazy infiltrates throughout both lungs. Left effusion. Probable small right effusion. IMPRESSION: Bilateral confluent infiltrates. POS: AGW
--- NOTE | 2020-10-09 08:23 | CT ---
PRELIMINARY REPORT/[facility]/EMERGENCY AFTER HOURS PROCEDURE: EXAM: CT Chest Without Intravenous Contrast. CLINICAL HISTORY: REPORTS FEVER, BODY ACHES, CHILLS, HEADACHE TECHNIQUE: Axial computed tomography images of the chest without intravenous contrast. COMPARISON: None provided. FINDINGS: LUNGS: Interlobular septal thickening is seen throughout the lungs. Confluent groundglass airspace densitie s are seen throughout the lungs bilaterally. PLEURAL SPACES: Large left-sided effusion. Moderate right-sided effusion. No pneumothorax. HEART AND MEDIASTINUM: Mild cardiomegaly. No significant pericardial effusion. The coronary arteries are calcified. LYMPH NODES: No lymphadenopathy. CHEST WALL AND UPPER ABDOMEN: The upper abdominal solid organs are unremarkable. The chest wall is unremarkable. BONES: No acute osseous abnormality. Multilevel degenerative disc disease. IMPRESSION: Mild cardiomegaly findings suggestive of congestive heart failure including interstitial edema. Conf luent groundglass airspace disease throughout the bilateral lungs which may represent alveolar edema, pneumonia, and/or atelectasis. Large left-sided effusion and moderate right-sided effusion. ELECTRONICALLY SIGNED BY: Mateo Dash MD Oct 09, 2020 2:36:41 AM FOLDED CLOTH TAPER This report is intended for review by the ordering physician only, in accordance of law. If you recei ve this report in error, please call [facility] at [phone]. FINAL REPORT CT CHEST WITHOUT CONTRAST: There is cardiomegaly with vascular congestion. Bilateral effusions. There are hazy [id number] pe infiltrates, some of which are more confluent seen bilaterally in the mid and lower lungs. I am in agreement with the preliminary report. POS: ROSE MARIE
[2020-10-09] MEDS ORDERED: niCARdipine 50 MG in Sodium Chloride 0.9% 250 ML 40 MG/230 ML BAG IVPB SCH (08:30)
[2020-10-09] MEDS: hydrALAZINE 25 MG TAB PO SCH ×3 (08:44→21:06)
[2020-10-09 08:45] LABS: Vancomycin, Random 11.8 ug/mL (See Comment)
[2020-10-09] MEDS: NIFEdipine XL 60 MG TAB PO SCH (08:45)
[2020-10-09] MEDS: Aspirin Chewable 81 MG TAB PO SCH (08:45)
[2020-10-09] MEDS: Carvedilol 25 MG TAB PO SCH ×2 (08:46→17:20)
[2020-10-09] MEDS: Heparin 5,000 UNITS/ML VIAL SC SCH ×2 (08:46→21:02)
[2020-10-09] MEDS ORDERED: Famotidine 20 MG TAB PO SCH (09:00)
--- NOTE | 2020-10-09 09:41 | CON ---
DATE OF CONSULTATION: HISTORY OF PRESENT ILLNESS: Terrance Gautam is a 59-year-old gentleman, presented with respiratory failure. History of chronic renal failure, three times a week, Friday, Friday, Friday. He said he drank a lot of excessive water, presented with shortness of breath. His oxygen saturations were in the 50s, he was placed on oxygen, given some breathing treatments. On arrival to the ER, x-ray shows diffuse pulmonary infiltrates consistent with fluid overload, CHF. Former smoker. Previous history of pneumonia, but no history of TB or asthma. PAST MEDICAL HISTORY: Hypertension, end-stage renal disease, hyperlipidemia, high cholesterol. PREVIOUS SURGERIES: Nephrectomy, right hernia repair, access. SOCIAL HISTORY: Dips tobacco. HOME MEDICATIONS: Include; 1. Hydralazine 100 three times a day. 2. Protonix 40. 3. Procardia 60. 4. Dulera two puffs. 5. Coreg 25. 6. Tessalon 100. 7. Aspirin. 8. Amlodipine 10. 9. Xanax. REVIEW OF SYSTEMS: Otherwise 10 point negative. PHYSICAL EXAMINATION: GENERAL: He is awake, alert, and responsive. VITAL SIGNS: His saturations are 100% on 2 L, blood pressure 141/80, pulse 80, respiratory rate 18. No distress. CHEST: Bilateral crackles, rhonchi. CARDIAC: Normal S1, normal S2. No gallops. ABDOMEN: No masses. LABORATORY DATA: White count 17,000, hemoglobin and hematocrit are 11 and 32, platelet count is 200. PO2 was 55, pCO2 of 29, pH 7.45. His creatinine is 10, BUN 77. BNP is 1152. IMPRESSION AND PLAN: 1. Respiratory failure secondary to congestive heart failure. 2. Diabetes, renal failure. Post dialysis if he is stable, early ambulation, PT. Home in the next 24 to 48 hours. Consultation note 70 minutes, 50% direct patient care. Job ID: [id number]
[2020-10-09] MEDS ORDERED: Cefepime 2 GM in Sodium Chloride 0.9% 100 ML IVPB SCH (11:00)
[2020-10-09] MEDS: Mometasone 200 MCG/Formoterol 5 MCG 120 PUFF INHALER INH SCH ×2 (11:10→19:53)
--- NOTE | 2020-10-09 11:31 | PDOC.HOSPP ---
- Subjective Encounter Date: 10/09/20 Encounter Time: 09:30 Subjective: awake, has no c/o sob or chest pain is getting HD now BP is stabilizing - Objective Vital Signs & Weight: Vital Signs (12 hours) Temp Pulse BP Pulse Ox 10/09/20 08:45 90 167/105 H 10/09/20 08:44 90 167/105 H 10/09/20 07:47 100 10/09/20 07:00 98.3 F 10/09/20 05:00 98.5 F 10/09/20 04:10 100 Weight Weight 139 lb 5.314 oz Most Recent Monitor Data Heart Rate from ECG 73 NIBP 163/97 NIBP BP-Mean 119 Respiration from ECG 16 SpO2 97 I&O: 10/08/20 10/09/20 10/10/20 06:59 06:59 06:59 Intake Total 123.5 158.4 Output Total 0 0 Balance 123.5 158.4 Result Diagrams: 10/09/20 01:48 10/09/20 01:48 Hospitalist ROS - Medication Medications: Active Medications Generic Name Dose Route Start Last Admin Trade Name Freq PRN Reason Stop Dose Admin Aspirin 81 mg 10/09/20 09:00 10/09/20 08:45 Aspirin Chewable 81 Mg Tab PO 81 mg DAILY SARTHAK Administration Carvedilol 25 mg 10/09/20 05:14 10/09/20 08:46 Carvedilol 25 Mg Tab PO 25 mg BID- SARTHAK Administration Heparin Sodium (Porcine) 5,000 units 10/09/20 09:00 10/09/20 08:46 Heparin 5,000 Units/Ml Vial SC 5,000 units BID SARTHAK Administration Hydralazine HCl 100 mg 10/09/20 09:00 10/09/20 08:44 Hydralazine 25 Mg Tab PO 100 mg TID SARTHAK Administration Vancomycin HCl 500 mg/ Sodium 100 mls @ 100 mls/hr 10/09/20 05:15 10/09/20 09:35 Chloride IVPB 100 mls WILLCALL SARTHAK Administration Sodium Chloride 1,000 mls @ 100 mls/hr 10/09/20 06:00 10/09/20 08:00 Normal Saline 0.9% IV Not Given .Q10H SARTHAK Nicardipine HCl 50 mg/ Sodium 40 mg in 250 mls @ 0 mls/hr 10/09/20 08:30 10/09/20 08:51 Chloride IVPB 250 mls INF SARTHAK Administration Protocol Titrate Methylprednisolone Sodium Succinate 60 mg 10/09/20 06:00 10/09/20 06:21 Methylprednisolone Sod Succ 40 Mg Vial IVP 60 mg Q8HR SARTHAK Administration Mometasone Furoate/Formoterol Fumar 2 puff 10/09/20 06:30 10/09/20 11:10 Mometasone 200 Mcg/Formoterol 5 Mcg 120 Puff Inhaler INH Not Given BID-RT SARTHAK Nifedipine 60 mg 10/09/20 09:00 10/09/20 08:45 Nifedipine Xl 60 Mg Tab PO 60 mg DAILY SARTHAK Administration Pantoprazole Sodium 40 mg 10/09/20 09:00 10/09/20 08:46 Pantoprazole 40 Mg Tab PO 40 mg DAILY SARTHAK Administration - Exam General Appearance: awake alert Eye: PERRL, anicteric sclera ENT: no oropharyngeal lesions, moist mucosa Neck: supple, no JVD Heart: RRR, no murmur Respiratory: no wheezes, no ronchi, rales Gastrointestinal: soft, non-tender, non-distended, normal bowel sounds Extremities: no cyanosis, no edema Neurological: cranial nerve grossly intact, no focal deficits Hosp A/P (1) Sepsis Code(s): A41.9 - SEPSIS, UNSPECIFIED ORGANISM Status: Suspected Qualifiers: Sepsis type: sepsis due to unspecified organism Sepsis acute organ dysfunction status: without acute organ dysfunction Qualified Code(s): A41.9 - Sepsis, unspecified organism (2) PNA (pneumonia) Code(s): J18.9 - PNEUMONIA, UNSPECIFIED ORGANISM Status: Suspected Qualifiers: Pneumonia type: due to unspecified organism (3) Acute respiratory failure with hypoxia Code(s): J96.01 - ACUTE RESPIRATORY FAILURE WITH HYPOXIA Status: Resolved (4) Anemia of renal disease Code(s): D63.1 - ANEMIA IN CHRONIC KIDNEY DISEASE Status: Chronic (5) Dyslipidemia Code(s): E78.5 - HYPERLIPIDEMIA, UNSPECIFIED Status: Chronic (6) ESRD (end stage renal disease) on dialysis Code(s): N18.6 - END STAGE RENAL DISEASE; Z99.2 - DEPENDENCE ON RENAL DIALYSIS Status: Chronic (7) Hyperlipidemia Code(s): E78.5 - HYPERLIPIDEMIA, UNSPECIFIED Status: Chronic Qualifiers: Hyperlipidemia type: unspecified Qualified Code(s): E78.5 - Hyperlipidemia, unspecified (8) Hypertension Code(s): I10 - ESSENTIAL (PRIMARY) HYPERTENSION Status: Chronic Qualifiers: Hypertension type: essential hypertension Qualified Code(s): I10 - Essential (primary) hypertension (9) Hypertensive urgency Code(s): I16.0 - HYPERTENSIVE URGENCY Status: Resolved (10) Volume overload Code(s): E87.70 - FLUID OVERLOAD, UNSPECIFIED Status: Acute Qualifiers: Hypervolemia type: unspecified Qualified Code(s): E87.70 - Fluid overload, unspecified - Plan may tx to medical floor after fluid removal with HD taper and dc cardene drip start home meds coreg, hydralazine, procardia xl, asp, dulera inh is on cefepime and vanc, wbc around 17k, await culture results hemostable PT to mobilize
[2020-10-09] MEDS ORDERED: Minoxidil 2.5 MG TAB PO SCH (13:00)
[2020-10-09] MEDS: cloNIDine 0.1 MG TAB PO SCH ×2 (14:21→21:02)
[2020-10-09] MEDS ORDERED: Cefepime 1 GM in Sodium Chloride 0.9% 100 ML IVPB SCH (21:00)
--- NOTE | 2020-10-09 22:57 | CON ---
DATE OF CONSULTATION: REQUESTING PHYSICIAN: Dr. Dumont with ER. REASON FOR CONSULTATION: Need for emergent dialysis. IMPRESSION: 1. End-stage renal disease, on hemodialysis, Friday, Friday, Friday. 2. Hypertensive emergency. 3. Acute respiratory failure in the context of pleural effusion and hypertensive emergency. PLAN: 1. Arrangement to be made to initiate emergent dialysis with ultrafiltration as tolerated by hemodynamics. 2. The patient is expected to receive dialysis up to 4 hours and we will re-evaluate afterwards. 3. Further management to be dependent on the clinical course. HISTORY OF PRESENT ILLNESS: This is a 59-year-old gentleman with hypertension, end-stage renal disease, on dialysis, dyslipidemia, anxiety, who presented here with severe respiratory distress noted with respiratory rate in the 40s, O2 sats in the 50s, with blood pressure systolic in the 240 range. Imaging studies revealed bilateral pleural effusion with pulmonary congestion, thus the need for Renal consultation for emergent dialysis. PAST MEDICAL HISTORY: As documented in the body of the history. MEDICATION: As documented on [facility]. REVIEW OF SYSTEMS: As documented in the body of the history. FAMILY HISTORY: Not significantly related to present illness. SOCIAL HISTORY: No alcohol, no tobacco, no illicit drug use. The patient chews tobacco. PHYSICAL EXAMINATION: GENERAL: The patient was found to be sleepy, but arousable. VITAL SIGNS: Hemodynamically much improved with systolic blood pressure down to the 160s while on dialysis, O2 saturation 100%. Heart rate of 70. HEENT EXAMINATION: Unremarkable. CARDIOVASCULAR SYSTEM: First and second heart sounds were heard. RESPIRATORY SYSTEM: Clear to auscultation. DIGESTIVE SYSTEM: Revealed a benign abdomen. Positive bowel sounds. EXTREMITIES: No peripheral edema. SKIN EXAMINATION: No new gross rash. LYMPHATICS: No peripheral lymphadenopathy. SUMMARY: A 59-year-old gentleman with end-stage renal disease, who presented here with acute respiratory failure in the context of hypertensive emergency. Thank you for this consultation. We will follow with you. Job ID: [id number]
[2020-10-10 06:30] LABS: #Basophils 0.1 thou/uL (0.0-0.2); #Eosinphils 0.1 thou/uL (0.0-0.7); #Lymphocytes 0.6 thou/uL (1.20-3.40); #Neutrophils 9.9 thou/uL (1.40-6.50); %Basophils 0.5 % (0.0-1.0); %Eosinophils 0.9 % (0.0-10.0); %Lymphocytes 5.4 % (21.0-51.0); %Monocytes 8.2 % (0.0-10.0); Hemoglobin 9.5 g/dL (14.0-18.0); Mean Corpuscular HGB CONC 31.8 g/dL (32.0-36.0); Mean Corpuscular Hemoglobin 32.8 pg (27.0-31.0); Mean Platelet Volume 7.8 fL (7.4-10.4); Platelet Count 210 thou/uL (130-400); RBC Distribution Width 16.5 % (11.5-14.5); Red Blood Cell (RBC) Count 2.89 mill/uL (4.70-6.10); White Blood Cell (WBC) Count 11.7 thou/uL (4.8-10.8)
[2020-10-10 06:54] LABS: Anion Gap 21 mmol/L (10-20); BUN (Urea Nitrogen) 59 mg/dL (8.4-25.7); Calc. Creatinine Clearance 9 mL/min (70-130); Carbon Dioxide 26 mmol/L (22-29); Chloride 97 mmol/L (98-107); Glucose 93 mg/dL (70-105); Magnesium 2.4 mg/dL (1.6-2.6); Potassium 4.2 mmol/L (3.5-5.1); Sodium 140 mmol/L (136-145)
[2020-10-10] MEDS: Mometasone 200 MCG/Formoterol 5 MCG 120 PUFF INHALER INH SCH ×2 (07:57→19:32)
--- NOTE | 2020-10-10 08:06 | RAD ---
Portable frontal chest radiograph: 10/10/2020 COMPARISON: 10/09/2020 HISTORY: Congestive heart failure FINDINGS: There is pulmonary vascular congestion with diffuse increased interstitial density in the p erihilar regions and both lung bases. Aeration has improved in the perihilar regions and the right lung base when compared to the prior exam. There is dense opacity in the left lung base suggesting a combination of left lower lobe consolidation/collapse and left pleural effusion. Left pleural and parenchymal opacity has improved within the left base when compared to the prior exam. Residual small right pleural effusion noted as well. IMPRESSION: Findings suggesting improving pulmonary edema. Asymmetric pleural and parenchymal opacity in the left base which may be explained by pulmonary edema but superimposed infection or aspiration cannot be excluded.
[2020-10-10] MEDS: cloNIDine 0.1 MG TAB PO SCH ×3 (08:11→20:41)
[2020-10-10] MEDS: NIFEdipine XL 60 MG TAB PO SCH (08:11)
[2020-10-10] MEDS: Aspirin Chewable 81 MG TAB PO SCH (08:12)
[2020-10-10] MEDS: hydrALAZINE 25 MG TAB PO SCH ×3 (08:12→20:41)
[2020-10-10] MEDS: Heparin 5,000 UNITS/ML VIAL SC SCH ×2 (08:13→20:41)
[2020-10-10] MEDS: Carvedilol 25 MG TAB PO SCH ×2 (08:13→18:22)
[2020-10-10 09:44] LABS: Vancomycin, Random 12.2 ug/mL (See Comment)
--- NOTE | 2020-10-10 09:47 | PRG ---
DATE OF SERVICE: SUBJECTIVE: This morning, he is awake, alert, responsive. OBJECTIVE: VITAL SIGNS: Temperature , sats 95% on low-flow O2, respirations 19, blood pressure 140/74. CHEST: No wheezing. No crackles. CARDIAC: Normal S1, S2. No gallops. DIAGNOSTIC STUDIES: Creatinine 7.6. X-ray shows a much improvement in his pleural effusion, pulmonary edema. The residual left effusion is persistent. ASSESSMENT: Chronic renal failure, congestive heart failure, left pleural effusion, much improved. Disposition as per Nephrology. Pulmonary is going . Please call if needed. Job ID: [id number]
[2020-10-10] MEDS: Minoxidil 2.5 MG TAB PO SCH (11:47)
--- NOTE | 2020-10-10 12:35 | PDOC.HOSPP ---
- Subjective Encounter Date: 10/10/20 Encounter Time: 09:15 Subjective: no sob, feels better tolerating oral diet no chest pain or palp - Objective Vital Signs & Weight: Vital Signs (12 hours) Temp Pulse Resp BP BP Pulse Ox 10/10/20 11:38 98 F 62 19 122/65 96 10/10/20 07:33 98.5 F 64 19 141/74 H 95 10/10/20 04:57 97.7 F 63 20 119/68 96 10/10/20 00:47 98.7 F 65 20 113/62 93 L Weight Admit Weight 139 lb 5.28 oz Weight 139 lb 5.314 oz Most Recent Monitor Data Heart Rate from ECG 68 NIBP 129/74 NIBP BP-Mean 92 Respiration from ECG 29 SpO2 100 I&O: 10/09/20 10/10/20 10/11/20 06:59 06:59 06:59 Intake Total 123.5 758.4 Output Total 0 0 Balance 123.5 758.4 Result Diagrams: 10/10/20 05:59 10/10/20 05:59 Hospitalist ROS - Medication Medications: Active Medications Generic Name Dose Route Start Last Admin Trade Name Freq PRN Reason Stop Dose Admin Aspirin 81 mg 10/09/20 09:00 10/10/20 08:12 Aspirin Chewable 81 Mg Tab PO 81 mg DAILY SARTHAK Administration Carvedilol 25 mg 10/09/20 05:14 10/10/20 08:13 Carvedilol 25 Mg Tab PO 25 mg BID-WM SARTHAK Administration Clonidine 0.1 mg 10/09/20 15:00 10/10/20 08:11 Clonidine 0.1 Mg Tab PO 0.1 mg TID SARTHAK Administration Heparin Sodium (Porcine) 5,000 units 10/09/20 09:00 10/10/20 08:13 Heparin 5,000 Units/Ml Vial SC 5,000 units BID SARTHAK Administration Hydralazine HCl 100 mg 10/09/20 09:00 10/10/20 08:12 Hydralazine 25 Mg Tab PO 100 mg TID SARTHAK Administration Cefepime HCl 1 gm/ Sodium 100 mls @ 200 mls/hr 10/09/20 21:00 10/09/20 21:02 Chloride IVPB 100 mls 2100 SARTHAK Administration Labetalol HCl 20 mg 10/09/20 05:00 10/09/20 12:10 Labetalol Hcl 100 Mg/20 Ml Vial SLOW IVP 20 mg Q4H PRN Administration SBP > 160 use first Minoxidil 10 mg 10/10/20 09:00 10/10/20 11:47 Minoxidil 2.5 Mg Tab PO 10 mg DAILY SARTHAK Administration Mometasone Furoate/Formoterol Fumar 2 puff 10/09/20 06:30 10/10/20 07:57 Mometasone 200 Mcg/Formoterol 5 Mcg 120 Puff Inhaler INH 2 puff BID-RT SARTHAK Administration Nifedipine 60 mg 10/09/20 09:00 10/10/20 08:11 Nifedipine Xl 60 Mg Tab PO 60 mg DAILY SARTHAK Administration Pantoprazole Sodium 40 mg 10/09/20 09:00 10/10/20 08:12 Pantoprazole 40 Mg Tab PO 40 mg DAILY SARTHAK Administration - Exam General Appearance: awake alert Eye: PERRL, anicteric sclera ENT: no oropharyngeal lesions, moist mucosa Neck: supple, no JVD Heart: RRR, no murmur Respiratory: no wheezes, no rales, rhonchi Gastrointestinal: soft, non-tender, non-distended, normal bowel sounds Extremities: no cyanosis, no edema Neurological: cranial nerve grossly intact, no focal deficits Psychiatric: normal affect, A&O x 3 Hosp A/P (1) Sepsis Code(s): A41.9 - SEPSIS, UNSPECIFIED ORGANISM Status: Resolved Qualifiers: Sepsis type: sepsis due to unspecified organism Sepsis acute organ dysfunction status: without acute organ dysfunction Qualified Code(s): A41.9 - Sepsis, unspecified organism (2) PNA (pneumonia) Code(s): J18.9 - PNEUMONIA, UNSPECIFIED ORGANISM Status: Suspected Qualifiers: Pneumonia type: due to unspecified organism (3) Acute respiratory failure with hypoxia Code(s): J96.01 - ACUTE RESPIRATORY FAILURE WITH HYPOXIA Status: Resolved (4) Anemia of renal disease Code(s): D63.1 - ANEMIA IN CHRONIC KIDNEY DISEASE Status: Chronic (5) Dyslipidemia Code(s): E78.5 - HYPERLIPIDEMIA, UNSPECIFIED Status: Chronic (6) ESRD (end stage renal disease) on dialysis Code(s): N18.6 - END STAGE RENAL DISEASE; Z99.2 - DEPENDENCE ON RENAL DIALYSIS Status: Chronic (7) Hyperlipidemia Code(s): E78.5 - HYPERLIPIDEMIA, UNSPECIFIED Status: Chronic Qualifiers: Hyperlipidemia type: unspecified Qualified Code(s): E78.5 - Hyperlipidemia, unspecified (8) Hypertension Code(s): I10 - ESSENTIAL (PRIMARY) HYPERTENSION Status: Chronic Qualifiers: Hypertension type: essential hypertension Qualified Code(s): I10 - Essential (primary) hypertension (9) Hypertensive urgency Code(s): I16.0 - HYPERTENSIVE URGENCY Status: Resolved (10) Volume overload Code(s): E87.70 - FLUID OVERLOAD, UNSPECIFIED Status: Resolved Qualifiers: Hypervolemia type: unspecified Qualified Code(s): E87.70 - Fluid overload, unspecified - Plan Had hemodialysis with fluid removal yesterday. on coreg, hydralazine, procardia xl, asp, dulera inh, minoxidil, clonidine continue omnicef for 3 more days and dc hemostable PT to mobilize htn is a bit labile, meds are being optimized, dc plan in am
[2020-10-10] MEDS ORDERED: Cefdinir 300 MG CAP PO SCH (12:45)
--- NOTE | 2020-10-10 18:21 | PRG ---
DATE OF SERVICE: 10/10/2020 SUBJECTIVE: The patient is seen, noted with the following vital signs. OBJECTIVE: VITAL SIGNS: Afebrile, temperature 98, pulse 66, respiratory rate of 18, O2 saturation of 92%, blood pressure 114/54. HEENT: Unremarkable. CARDIOVASCULAR SYSTEM: First and second heart sounds were heard. RESPIRATORY SYSTEM: Clear to auscultation. DIGESTIVE SYSTEM: Revealed a benign abdomen with positive bowel sounds. EXTREMITIES: No peripheral edema. SKIN: No new gross rash. LYMPHATICS: No peripheral lymphadenopathy. IMPRESSION: 1. Acute respiratory failure in the context of problem #2. 2. Hypervolemia. 3. Hypertensive emergency. 4. End-stage renal disease. PLAN: 1. The patient to be dialyzed tomorrow. No emergent indication for renal replacement therapy today. 2. Further management will be dependent on the clinical course. Job ID: [id number]
[2020-10-11 06:31] LABS: #Eosinphils 0.2 thou/uL (0.0-0.7); #Lymphocytes 0.8 thou/uL (1.20-3.40); #Monocytes 0.7 thou/uL (0.11-0.59); #Neutrophils 7.6 thou/uL (1.40-6.50); %Basophils 0.5 % (0.0-1.0); %Eosinophils 2.4 % (0.0-10.0); %Lymphocytes 8.8 % (21.0-51.0); %Monocytes 7.5 % (0.0-10.0); %Neutrophils 80.9 % (42.0-75.0); Hemoglobin 9.8 g/dL (14.0-18.0); Mean Corpuscular HGB CONC 31.7 g/dL (32.0-36.0); Mean Corpuscular Hemoglobin 32.7 pg (27.0-31.0); Mean Platelet Volume 7.9 fL (7.4-10.4); Platelet Count 202 thou/uL (130-400); RBC Distribution Width 16.3 % (11.5-14.5); White Blood Cell (WBC) Count 9.5 thou/uL (4.8-10.8)
[2020-10-11 06:49] LABS: Anion Gap 22 mmol/L (10-20); BUN (Urea Nitrogen) 80 mg/dL (8.4-25.7); Calc. Creatinine Clearance 7 mL/min (70-130); Calcium 8.6 mg/dL (7.8-10.44); Carbon Dioxide 24 mmol/L (22-29); Chloride 97 mmol/L (98-107); Glucose 87 mg/dL (70-105); Potassium 4.3 mmol/L (3.5-5.1); Sodium 139 mmol/L (136-145)
[2020-10-11] MEDS: Mometasone 200 MCG/Formoterol 5 MCG 120 PUFF INHALER INH SCH (06:50)
[2020-10-11] MEDS: Carvedilol 25 MG TAB PO SCH (08:41)
[2020-10-11] MEDS: Aspirin Chewable 81 MG TAB PO SCH (08:41)
[2020-10-11] MEDS: cloNIDine 0.1 MG TAB PO SCH ×2 (08:42→14:18)
[2020-10-11] MEDS: Heparin 5,000 UNITS/ML VIAL SC SCH (08:42)
[2020-10-11] MEDS: NIFEdipine XL 60 MG TAB PO SCH (08:42)
[2020-10-11] MEDS: Minoxidil 2.5 MG TAB PO SCH (08:42)
[2020-10-11] MEDS: hydrALAZINE 25 MG TAB PO SCH ×2 (08:42→14:18)
[2020-10-11] MEDS ORDERED: Cefdinir 300 MG CAP PO SCH (09:00)
--- NOTE | 2020-10-11 10:12 | PDOC.DS.DS ---
Provider - Provider Date of Admission: 10/09/20 03:24 Date of Discharge: 10/11/20 Admitting Provider: Elvin Serrato MD Consultations: Nephrology (Dr. Garrido) Primary Care Physician: Gerber Bishop MD Course - Hospital Course Hospital Course: Discharge diagnosis: 1. Sepsis 2. Pneumonia 3. Acute hypoxic respiratory failure 4. Volume overload 5. Hypertensive urgency Hospital course: Patient is a pleasant 51-year-old gentleman who was admitted to the hospital on October 09, 2020 for sepsis secondary to pneumonia. He was also found to be in hypertensive urgency and volume overload. He was seen by nephrology service and pulmonology services. He underwent dialysis with improvement in his symptoms. Hypoxia also resolved. He is being discharged home on Omnicef 300 mg 2 times a day for a total of 10 days and minoxidil 10 mg daily, in addition to his home medications. Discharge destination: Home Total amount of time spent coordinating this discharge: 31 minutes Resuscitation Status: 10/09/20 05:00 Resuscitation Status Routine Resuscitation Status: FULL: Full Resuscitation - Labs Lab Results: 10/11/20 06:16 10/11/20 06:16 Abnormal Lab Results - Last 48 hrs 10/10/20 05:59: Chloride 97 L, Anion Gap 21 H, BUN 59 H, Creatinine 7.76 H 10/10/20 05:59: WBC 11.7 H, RBC 2.89 L, Hgb 9.5 L, Hct 29.8 L, MCV 103.0 H, MCH 32.8 H, MCHC 31.8 L, RDW 16.5 H, Neutrophils % 85.0 H, Lymphocytes % 5.4 L, Neutrophils # 9.9 H, Lymphocytes # 0.6 L, Monocytes # 1.0 H 10/11/20 06:16: Chloride 97 L, Anion Gap 22 H, BUN 80 H, Creatinine 9.94 H 10/11/20 06:16: RBC 3.00 L, Hgb 9.8 L, Hct 31.0 L, MCV 103.0 H, MCH 32.7 H, MCHC 31.7 L, RDW 16.3 H, Neutrophils % 80.9 H, Lymphocytes % 8.8 L, Neutrophils # 7.6 H, Lymphocytes # 0.8 L, Monocytes # 0.7 H Microbiology - Entire Visit 10/09/20 01:48 Venous blood - Right Arm Blood Culture - Preliminary Specimen has been received and culture in progress. No Growth to date. 10/09/20 01:53 Venous blood - Right Hand Blood Culture - Preliminary Specimen has been received and culture in progress. No Growth to date. - Physical Exam Vitals: Vital Signs (12 hours) Temp Pulse Resp BP BP Pulse Ox 10/11/20 07:42 97.5 F L 61 20 143/74 H 96 10/11/20 03:35 97.7 F 65 15 117/63 96 10/10/20 23:31 97.8 F 64 15 107/64 98 Weight Admit Weight 139 lb 5.28 oz Weight 139 lb 5.314 oz Most Recent Monitor Data Heart Rate from ECG 68 NIBP 129/74 NIBP BP-Mean 92 Respiration from ECG 29 SpO2 100 Physical Exam: The patient was seen and examined on the day of discharge. Patient denies chest pain or shortness of breath. Vital signs are stable. S1 and S2 are heard. Lungs are clear to auscultation bilaterally. Plan - Discharge Medications Prescriptions: Minoxidil 10 mg PO DAILY #30 tab Cefdinir [Omnicef] 300 mg PO DAILY #16 cap Home Medications: Medication Instructions Recorded Confirmed Type Aspirin [Radha Chewable Aspirin] 1 tab PO DAILY 11/01/19 03/12/20 History Benzonatate [Tessalon] 100 mg PO TID PRN #30 cap 02/02/20 03/12/20 Rx Aspirin Chewable [Aspirin Chewable 81 mg PO DAILY #30 tab 03/14/20 Rx Tablet] Carvedilol [Coreg] 25 mg PO BID-WM #60 tab 03/14/20 Rx Febuxostat [Uloric] 80 mg PO DAILY #30 tablet 03/14/20 Rx Mometasone/Formoterol 200/5 2 puff INH BID-RT #1 inh 03/14/20 Rx [Dulera 200 Mcg/5 Mcg Inhaler] NIFEdipine [Procardia XL] 60 mg PO DAILY #30 tab 03/14/20 Rx Pantoprazole [Protonix] 40 mg PO DAILY #30 tab 03/14/20 Rx hydrALAZINE HCl 100 mg PO TID #90 tablet 03/14/20 Rx ALPRAZolam [Xanax] 0.5 mg PO DAILY 07/21/20 07/21/20 History Amlodipine Besylate [amLODIPine 10 mg PO DAILY 07/21/20 07/21/20 History Besylate] Cefdinir [Omnicef] 300 mg PO DAILY #16 cap 10/11/20 Rx Minoxidil 10 mg PO DAILY #30 tab 10/11/20 Rx Allergies: No Known Drug Allergies Allergy (Verified 03/02/20 21:16) PER PATIENT - Discharge Instructions Discharge Instructions:: Check your blood pressure and heart rate 3 times a day and show readings to your primary care provider. Activity:: Activity as Tolerated - Follow up Plan Referrals: Jake Garrido MD [Active] - (follow up as directed) Gerber Bishop MD [Primary Care Provider] - 3 Days Disposition: HOME
[2020-10-11 17:25] VITALS: BP 180/87; TEMP 97.4
== END 2020-10-11 14:37 | disposition home or self-care (01) | DRG 871 ==
LOC: ERS 01:28 → CCU 03:24 → T4-B 18:02
PROVIDERS: ADMIT Internal Medicine; ATTEND Internal Medicine
PROC: 5A1D70Z Performance of Urinary Filtration, Intermittent, Less than 6 Hours Per Day (ICD-10-PCS; principal; 2020-10-09)
DX: A41.9 Sepsis, unspecified organism (principal); J18.9 Pneumonia, unspecified organism; N18.6 End stage renal disease; J96.01 Acute respiratory failure with hypoxia; I12.0 Hypertensive chronic kidney disease with stage 5 chronic kidney disease or end stage renal disease; J90 Pleural effusion, not elsewhere classified; Z20.828 Contact with and (suspected) exposure to other viral communicable diseases; E87.70 Fluid overload, unspecified; I16.0 Hypertensive urgency; D63.1 Anemia in chronic kidney disease; E11.22 Type 2 diabetes mellitus with diabetic chronic kidney disease; E78.5 Hyperlipidemia, unspecified; F17.220 Nicotine dependence, chewing tobacco, uncomplicated; Z99.2 Dependence on renal dialysis; Z98.890 Other specified postprocedural states; Z90.5 Acquired absence of kidney
CPT/HCPCS: 36415; 36600; 71045; 71250; 80048; 80053; 80202; 82553; 82805; 83605; 83735; 83880; 84484; 85025; 87040; 90935; 93005; 96365; 96366; 96367; 96375; G0257; J0360; J0692; J1644; J2405; J2920; J3370; J3490; J7050; U0002

== ENCOUNTER 2021-01-07 09:30 | Inpatient (IN) | payer MEDICARE, BC ==
[2021-01-07 10:00] LABS: #Eosinphils 0.1 thou/uL (0.0-0.7); #Lymphocytes 0.4 thou/uL (1.20-3.40); #Monocytes 0.5 thou/uL (0.11-0.59); #Neutrophils 9.5 thou/uL (1.40-6.50); %Basophils 0.2 % (0.0-1.0); %Eosinophils 0.8 % (0.0-10.0); %Lymphocytes 3.7 % (21.0-51.0); %Neutrophils 90.3 % (42.0-75.0); Hemoglobin 8.9 g/dL (14.0-18.0); Mean Corpuscular HGB CONC 36.4 g/dL (32.0-36.0); Mean Corpuscular Hemoglobin 36.1 pg (27.0-31.0); Mean Corpuscular Volume 99.1 fL (78.0-98.0); Mean Platelet Volume 7.6 fL (7.4-10.4); Platelet Count 141 thou/uL (130-400); RBC Distribution Width 14.2 % (11.5-14.5); Red Blood Cell (RBC) Count 2.47 mill/uL (4.70-6.10); White Blood Cell (WBC) Count 10.5 thou/uL (4.8-10.8)
[2021-01-07 10:24] LABS: ALT (SGPT) 25 U/L (8-55); AST (SGOT) 15 U/L (5-34); Albumin 3.9 g/dL (3.5-5.0); Alkaline Phosphatase 68 U/L (40-110); Anion Gap 21 mmol/L (10-20); BUN (Urea Nitrogen) 81 mg/dL (8.4-25.7); Bilirubin, Total 0.9 mg/dL (0.2-1.2); Calc. Creatinine Clearance 0 mL/min (70-130); Calcium 9.5 mg/dL (7.8-10.44); Carbon Dioxide 26 mmol/L (22-29); Chloride 98 mmol/L (98-107); Globulin 2.3 g/dL (2.4-3.5); Glucose 101 mg/dL (70-105); Potassium 4.4 mmol/L (3.5-5.1); Protein, Total 6.2 g/dL (6.0-8.3); Sodium 141 mmol/L (136-145)
[2021-01-07] MEDS ORDERED: Nitroglycerin 0.4 MG TAB 1 EACH ONE (10:42)
[2021-01-07] MEDS ORDERED: Furosemide 100 MG/10 ML VIAL ONE (11:07)
[2021-01-07] MEDS ORDERED: Labetalol HCl 100 MG/20 ML VIAL ONE (11:07)
[2021-01-07] MEDS ORDERED: Acetaminophen 500 MG TAB ONE (11:16)
[2021-01-07] MEDS ORDERED: hydrALAZINE 20 MG/ML VIAL ONE (12:45)
[2021-01-07 12:57] LABS: Troponin I 0.074 ng/mL (< 0.028)
[2021-01-07] MEDS ORDERED: Ondansetron PF 4 MG/2 ML Vial ONE (12:57)
[2021-01-07] MEDS ORDERED: niCARdipine 25 MG in Sodium Chloride 0.9% 250 ML 240 ML IVPB SCH (13:15)
[2021-01-07] MEDS ORDERED: niCARdipine 20MG In NaCl 20 MG/200 ML BAG ONE (13:21)
[2021-01-07 13:42] LABS: SARS-CoV-2 NAA Rapid Test Not Detected (NotDetected)
[2021-01-07 17:08] LABS: Troponin I 0.073 ng/mL (< 0.028)
[2021-01-07 18:17] LABS: HBSAg Index 0.17 S/CO (0-0.99); Hep B Surf Ag Non-Reactive S/CO (NonReactive)
[2021-01-07] MEDS ORDERED: Lorazepam 2 MG/ML VIAL ONE (19:20)
[2021-01-08] MEDS ORDERED: niCARdipine 20MG In NaCl 20 MG/200 ML BAG ONE (00:53)
[2021-01-08] MEDS: Heparin 5,000 UNITS/ML VIAL SC SCH (03:15)
[2021-01-08] MEDS ORDERED: ALPRAZolam 0.5 MG TAB PO SCH (03:30)
[2021-01-08 03:39] LABS: #Eosinphils 0.2 thou/uL (0.0-0.7); #Lymphocytes 0.3 thou/uL (1.20-3.40); #Monocytes 0.6 thou/uL (0.11-0.59); #Neutrophils 15.4 thou/uL (1.40-6.50); %Basophils 0.1 % (0.0-1.0); %Eosinophils 0.9 % (0.0-10.0); %Lymphocytes 1.8 % (21.0-51.0); %Monocytes 3.8 % (0.0-10.0); %Neutrophils 93.3 % (42.0-75.0); Hemoglobin 8.7 g/dL (14.0-18.0); Mean Corpuscular HGB CONC 33.5 g/dL (32.0-36.0); Mean Corpuscular Hemoglobin 33.2 pg (27.0-31.0); Mean Corpuscular Volume 99.2 fL (78.0-98.0); Mean Platelet Volume 7.7 fL (7.4-10.4); Platelet Count 141 thou/uL (130-400); RBC Distribution Width 14.5 % (11.5-14.5); Red Blood Cell (RBC) Count 2.61 mill/uL (4.70-6.10); White Blood Cell (WBC) Count 16.5 thou/uL (4.8-10.8)
[2021-01-08 04:06] LABS: Anion Gap 21 mmol/L (10-20); BUN (Urea Nitrogen) 75 mg/dL (8.4-25.7); Calc. Creatinine Clearance 8 mL/min (70-130); Calcium 9.5 mg/dL (7.8-10.44); Carbon Dioxide 23 mmol/L (22-29); Chloride 98 mmol/L (98-107); Glucose 169 mg/dL (70-105); Sodium 138 mmol/L (136-145)
[2021-01-08] MEDS ORDERED: NIFEdipine XL 60 MG TAB PO SCH (09:00)
[2021-01-08] MEDS ORDERED: Aspirin Chewable 81 MG TAB PO SCH (09:00)
[2021-01-08] MEDS: Carvedilol 25 MG TAB PO SCH ×2 (09:09→17:12)
[2021-01-08] MEDS: NIFEdipine XL 90 MG TAB PO SCH (09:10)
[2021-01-08] MEDS: ALPRAZolam 0.5 MG TAB PO SCH (09:31)
[2021-01-08] MEDS: Minoxidil 10 MG TAB PO SCH (10:21)
[2021-01-08 10:33] VITALS: BMI 22.1
[2021-01-08] MEDS ORDERED: Sodium Chloride 0.9% 10 ML ONE (10:55)
[2021-01-08] MEDS ORDERED: Aspirin Chewable 81 MG TAB ONE (11:04)
[2021-01-08] MEDS: Aspirin Chewable 81 MG TAB PO SCH (11:07)
[2021-01-08] MEDS ORDERED: Epoetin (ESRD) 20,000 UNITS/ML IVP SCH (11:30)
[2021-01-08] MEDS ORDERED: EPOETIN ALFA-EPBX (ESRD) 2,000 UNIT/ML VIAL IVP SCH (12:00)
[2021-01-08] MEDS ORDERED: EPOETIN ALFA-EPBX (ESRD) 3,000 UNIT/ML VIAL IVP SCH (12:00)
[2021-01-08] MEDS ORDERED: Benzonatate 100 MG CAP PO PRN (15:34)
[2021-01-08] MEDS: Mometasone 200 MCG/Formoterol 5 MCG 120 PUFF INHALER INH SCH (18:46)
[2021-01-08] MEDS ORDERED: FLU VACC QS2020-21(6MOS UP)/PF 60 MCG/0.5 ML SYRINGE IM ONE (21:00)
[2021-01-09 01:07] LABS: #Eosinphils 0.1 thou/uL (0.0-0.7); #Lymphocytes 0.6 thou/uL (1.20-3.40); #Monocytes 0.5 thou/uL (0.11-0.59); #Neutrophils 10.1 thou/uL (1.40-6.50); %Basophils 0.1 % (0.0-1.0); %Monocytes 4.6 % (0.0-10.0); %Neutrophils 89.3 % (42.0-75.0); Hemoglobin 7.8 g/dL (14.0-18.0); Mean Corpuscular Hemoglobin 34.5 pg (27.0-31.0); Mean Corpuscular Volume 98.7 fL (78.0-98.0); Mean Platelet Volume 7.5 fL (7.4-10.4); Platelet Count 119 thou/uL (130-400); RBC Distribution Width 14.5 % (11.5-14.5); Red Blood Cell (RBC) Count 2.26 mill/uL (4.70-6.10); White Blood Cell (WBC) Count 11.3 thou/uL (4.8-10.8)
[2021-01-09 01:23] LABS: Anion Gap 17 mmol/L (10-20); BUN (Urea Nitrogen) 46 mg/dL (8.4-25.7); Calc. Creatinine Clearance 12 mL/min (70-130); Calcium 9.3 mg/dL (7.8-10.44); Carbon Dioxide 31 mmol/L (22-29); Chloride 96 mmol/L (98-107); Glucose 116 mg/dL (70-105); Magnesium 2.1 mg/dL (1.6-2.6); Phosphorus 4.1 mg/dL (2.3-4.7); Potassium 3.8 mmol/L (3.5-5.1); Sodium 140 mmol/L (136-145)
[2021-01-09 03:14] VITALS: TEMP 99.1
[2021-01-09] MEDS: Mometasone 200 MCG/Formoterol 5 MCG 120 PUFF INHALER INH SCH (07:55)
[2021-01-09 08:58] VITALS: BP 174/81
[2021-01-09] MEDS: NIFEdipine XL 90 MG TAB PO SCH (08:58)
[2021-01-09] MEDS: ALPRAZolam 0.5 MG TAB PO SCH (08:58)
[2021-01-09] MEDS: Aspirin Chewable 81 MG TAB PO SCH (08:58)
[2021-01-09] MEDS: Carvedilol 25 MG TAB PO SCH (08:59)
[2021-01-09] MEDS ORDERED: Amlodipine 10 MG TAB PO SCH (09:00)
[2021-01-09] MEDS ORDERED: Febuxostat 40 MG TAB PO SCH (09:00)
[2021-01-09] MEDS ORDERED: Aspirin Chewable 81 MG TAB PO SCH (09:00)
[2021-01-09] MEDS: Minoxidil 10 MG TAB PO SCH (11:01)
== END 2021-01-09 11:00 | disposition home or self-care (01) | DRG 640 ==
LOC: ERS 09:30 → ERHOLD 21:51 → CCU 01-08 02:53 → PACU-TCU 01-08 04:01 → 2NO 01-08 17:48
PROVIDERS: ADMIT Internal Medicine; ATTEND Internal Medicine
PROC: 5A1D70Z Performance of Urinary Filtration, Intermittent, Less than 6 Hours Per Day (ICD-10-PCS; principal; 2021-01-07)
DX: E87.70 Fluid overload, unspecified (principal); N18.6 End stage renal disease; J81.0 Acute pulmonary edema; I16.1 Hypertensive emergency; I24.8 Other forms of acute ischemic heart disease; I12.0 Hypertensive chronic kidney disease with stage 5 chronic kidney disease or end stage renal disease; Z20.822 Contact with and (suspected) exposure to COVID-19; Z23 Encounter for immunization; E78.00 Pure hypercholesterolemia, unspecified; E78.5 Hyperlipidemia, unspecified; F17.220 Nicotine dependence, chewing tobacco, uncomplicated; F41.9 Anxiety disorder, unspecified; Z99.2 Dependence on renal dialysis; Z90.5 Acquired absence of kidney; Z79.899 Other long term (current) drug therapy; Z79.82 Long term (current) use of aspirin
CPT/HCPCS: 0240U; 36415; 71045; 80048; 80053; 83735; 83880; 84100; 84484; 85025; 87340; 90471; 90662; 93005; 94760; 96365; 96366; 96375; G0008; J0360; J1940; J2060; J2405; J7050

== ENCOUNTER 2021-02-19 11:19 | Emergency (ER) | payer MEDICARE, BC ==
[2021-02-19] MEDS ORDERED: hydrALAZINE 20 MG/ML VIAL ONE (12:47)
[2021-02-19 14:23] LABS: #Eosinphils 0.1 thou/uL (0.0-0.7); #Lymphocytes 0.5 thou/uL (1.20-3.40); #Monocytes 0.7 thou/uL (0.11-0.59); #Neutrophils 12.5 thou/uL (1.40-6.50); %Basophils 0.3 % (0.0-1.0); %Eosinophils 0.8 % (0.0-10.0); %Lymphocytes 3.9 % (21.0-51.0); %Monocytes 4.8 % (0.0-10.0); %Neutrophils 90.3 % (42.0-75.0); Hemoglobin 11.5 g/dL (14.0-18.0); Mean Corpuscular HGB CONC 33.9 g/dL (32.0-36.0); Mean Corpuscular Hemoglobin 33.5 pg (27.0-31.0); Mean Corpuscular Volume 98.9 fL (78.0-98.0); Mean Platelet Volume 8.2 fL (7.4-10.4); Platelet Count 170 thou/uL (130-400); RBC Distribution Width 14.4 % (11.5-14.5); Red Blood Cell (RBC) Count 3.42 mill/uL (4.70-6.10); White Blood Cell (WBC) Count 13.8 thou/uL (4.8-10.8)
[2021-02-19 14:41] LABS: ALT (SGPT) 18 U/L (8-55); AST (SGOT) 15 U/L (5-34); Albumin 3.9 g/dL (3.5-5.0); Alkaline Phosphatase 85 U/L (40-110); Anion Gap 18 mmol/L (10-20); BUN (Urea Nitrogen) 35 mg/dL (8.4-25.7); Bilirubin, Total 1.3 mg/dL (0.2-1.2); Calc. Creatinine Clearance 0 mL/min (70-130); Calcium 10.1 mg/dL (7.8-10.44); Carbon Dioxide 26 mmol/L (22-29); Chloride 95 mmol/L (98-107); Globulin 3.4 g/dL (2.4-3.5); Glucose 84 mg/dL (70-105); Magnesium 2.1 mg/dL (1.6-2.6); Potassium 3.1 mmol/L (3.5-5.1); Protein, Total 7.3 g/dL (6.0-8.3); Sodium 136 mmol/L (136-145)
[2021-02-19 15:02] LABS: CKMB 3.2 ng/mL (0-6.6)
== END 2021-02-19 16:50 | disposition home or self-care (01) ==
LOC: ERS 11:19
DX: I12.0 Hypertensive chronic kidney disease with stage 5 chronic kidney disease or end stage renal disease (principal); N18.6 End stage renal disease; E78.5 Hyperlipidemia, unspecified; E78.00 Pure hypercholesterolemia, unspecified; F17.220 Nicotine dependence, chewing tobacco, uncomplicated; Z79.82 Long term (current) use of aspirin; Z79.899 Other long term (current) drug therapy
CPT/HCPCS: 36415; 71045; 80053; 82553; 83735; 84484; 85025; 93005; 94760; 96374; J0360

== ENCOUNTER 2021-03-10 09:03 | Emergency (ER) | payer MEDICARE, BC | END 2021-03-10 10:52 | disposition home or self-care (01) | LOC: ERS 09:03 | DX: M25.431 Effusion, right wrist (principal); S60.511A Abrasion of right hand, initial encounter; I12.0 Hypertensive chronic kidney disease with stage 5 chronic kidney disease or end stage renal disease; N18.6 End stage renal disease; E78.5 Hyperlipidemia, unspecified; E78.00 Pure hypercholesterolemia, unspecified; F17.220 Nicotine dependence, chewing tobacco, uncomplicated; Z99.2 Dependence on renal dialysis; Z79.82 Long term (current) use of aspirin; Z79.899 Other long term (current) drug therapy; X50.3XXA Overexertion from repetitive movements, initial encounter ==

== ENCOUNTER 2021-10-29 01:04 | Inpatient (IN) | payer MEDICARE, BC ==
[2021-10-29 01:29] LABS: #Eosinphils 0.2 thou/uL (0.0-0.7); #Lymphocytes 0.5 thou/uL (1.20-3.40); #Monocytes 0.8 thou/uL (0.11-0.59); #Neutrophils 12.7 thou/uL (1.40-6.50); %Basophils 0.3 % (0.0-1.0); %Eosinophils 1.2 % (0.0-10.0); %Lymphocytes 3.3 % (21.0-51.0); %Monocytes 5.8 % (0.0-10.0); %Neutrophils 89.3 % (42.0-75.0); Mean Corpuscular HGB CONC 34.5 g/dL (32.0-36.0); Mean Corpuscular Hemoglobin 37.2 pg (27.0-31.0); Mean Platelet Volume 8.1 fL (7.4-10.4); Platelet Count 125 thou/uL (130-400); RBC Distribution Width 15.8 % (11.5-14.5); Red Blood Cell (RBC) Count 3.23 mill/uL (4.70-6.10); White Blood Cell (WBC) Count 14.3 thou/uL (4.8-10.8)
[2021-10-29] MEDS ORDERED: Nitroglycerin 2% Ointment 1 INCH/1 GM Packet ONE (01:29)
[2021-10-29] MEDS ORDERED: hydrALAZINE 20 MG/ML VIAL ONE ×2 (01:29→02:36)
[2021-10-29 01:49] LABS: ALT (SGPT) 25 U/L (8-55); AST (SGOT) 22 U/L (5-34); Albumin 4.1 g/dL (3.5-5.0); Alkaline Phosphatase 96 U/L (40-110); Anion Gap 24 mmol/L (10-20); BUN (Urea Nitrogen) 96 mg/dL (8.4-25.7); Bilirubin, Total 1.4 mg/dL (0.2-1.2); Calc. Creatinine Clearance 0 mL/min (70-130); Calcium 10.7 mg/dL (7.8-10.44); Carbon Dioxide 25 mmol/L (22-29); Chloride 96 mmol/L (98-107); Globulin 3.2 g/dL (2.4-3.5); Glucose 114 mg/dL (70-105); Magnesium 2.7 mg/dL (1.6-2.6); Potassium 5.1 mmol/L (3.5-5.1); Protein, Total 7.3 g/dL (6.0-8.3); Sodium 140 mmol/L (136-145)
[2021-10-29 01:51] LABS: Elliptocytes SLIGHT = 2-5 cells (100X) (0-1/hpf); MDiff Complete? YES; Macrocytosis MODERATE=16-30 cells (100X) (0-5/hpf); Ovalocytes SLIGHT = 2-5 cells (100X) (0-1/hpf); Platelet Morphology Comment Appears Decreased; Polychromasia SLIGHT = 2-3 cells (100X) (0-2/hpf); Schistocytes SLIGHT = 2-5 cells (100X) (0-1/hpf)
[2021-10-29 02:12] LABS: SARS-CoV-2 NAA Rapid Test Not Detected (NotDetected)
[2021-10-29] MEDS ORDERED: Furosemide 100 MG/10 ML VIAL ONE (03:31)
[2021-10-29] MEDS ORDERED: Acetaminophen 325 MG TAB PO PRN (05:46)
[2021-10-29] MEDS ORDERED: Ondansetron PF 4 MG/2 ML Vial IVP PRN (05:46)
[2021-10-29] MEDS ORDERED: Labetalol HCl 100 MG/20 ML VIAL ONE (05:54)
[2021-10-29] MEDS ORDERED: Labetalol HCl 100 MG/20 ML VIAL SLOW IVP SCH (06:00)
[2021-10-29] MEDS ORDERED: ALPRAZolam 0.25 MG TAB PO SCH (06:30)
[2021-10-29] MEDS ORDERED: hydrALAZINE 20 MG/ML VIAL SLOW IVP SCH (08:45)
[2021-10-29 08:52] VITALS: BMI 21.9
[2021-10-29 08:53] LABS: Troponin I 0.109 ng/mL (< 0.028)
[2021-10-29] MEDS ORDERED: Nitroglycerin 50 MG/250 ML BOT 250 ML IVPB SCH (09:00)
[2021-10-29] MEDS ORDERED: FLU VACC QS2021-22(6MOS UP)/PF 60 MCG/0.5 ML SYRINGE IM ONE (09:00)
[2021-10-29] MEDS ORDERED: NITROGLYCERIN 25 MG/250 ML IV SCH (09:15)
[2021-10-29 10:27] LABS: HBSAg Index 0.25 S/CO (0-0.99); Hep B Surf Ag Non-Reactive S/CO (NonReactive)
[2021-10-29] MEDS ORDERED: Benzonatate 100 MG CAP PO PRN (10:31)
[2021-10-29] MEDS ORDERED: niCARdipine 25 MG in Sodium Chloride 0.9% 250 ML 240 ML IVPB SCH (10:45)
[2021-10-29] MEDS ORDERED: VANCOMYCIN 1.25 GM/250 ML BAG 1.25 GM in Premix Bag 1 BAG IVPB SCH (11:00)
[2021-10-29] MEDS: Cefepime 1 GM in Sodium Chloride 0.9% 100 ML IVPB SCH (11:35)
[2021-10-29] MEDS ORDERED: niCARdipine 50 MG in Sodium Chloride 0.9% 250 ML 230 ML IVPB SCH (12:15)
[2021-10-29 12:29] LABS: Hep B Surf AB EQUIVOCAL (NonReactive)
[2021-10-29 12:30] LABS: HBSAB Concentration 8.71 mIU/mL
[2021-10-29] MEDS ORDERED: Labetalol 100 MG TAB PO SCH (12:45)
[2021-10-29] MEDS ORDERED: NIFEdipine XL 60 MG TAB PO SCH (12:45)
[2021-10-29 13:36] LABS: Troponin I 0.122 ng/mL (< 0.028)
[2021-10-29] MEDS: Labetalol 100 MG TAB PO SCH (20:20)
[2021-10-29] MEDS: NIFEdipine XL 60 MG TAB PO SCH (20:20)
[2021-10-29] MEDS ORDERED: Pantoprazole 40 MG VIAL IVP SCH (21:00)
[2021-10-30 03:31] LABS: #Eosinphils 0.1 thou/uL (0.0-0.7); #Lymphocytes 0.5 thou/uL (1.20-3.40); #Monocytes 0.7 thou/uL (0.11-0.59); #Neutrophils 8.4 thou/uL (1.40-6.50); %Basophils 0.2 % (0.0-1.0); %Eosinophils 0.9 % (0.0-10.0); %Lymphocytes 5.2 % (21.0-51.0); %Monocytes 7.4 % (0.0-10.0); %Neutrophils 86.3 % (42.0-75.0); Hemoglobin 10.1 g/dL (14.0-18.0); Mean Corpuscular HGB CONC 33.7 g/dL (32.0-36.0); Mean Corpuscular Hemoglobin 36.9 pg (27.0-31.0); Mean Platelet Volume 8.4 fL (7.4-10.4); Platelet Count 91 thou/uL (130-400); RBC Distribution Width 15.5 % (11.5-14.5); Red Blood Cell (RBC) Count 2.74 mill/uL (4.70-6.10); White Blood Cell (WBC) Count 9.7 thou/uL (4.8-10.8)
[2021-10-30 03:50] LABS: Anion Gap 16 mmol/L (10-20); BUN (Urea Nitrogen) 44 mg/dL (8.4-25.7); Calc. Creatinine Clearance 12 mL/min (70-130); Calcium 9.3 mg/dL (7.8-10.44); Carbon Dioxide 29 mmol/L (22-29); Chloride 98 mmol/L (98-107); Glucose 98 mg/dL (70-105); Potassium 4.1 mmol/L (3.5-5.1); Sodium 139 mmol/L (136-145)
[2021-10-30] MEDS: Mometasone 200 MCG/Formoterol 5 MCG 120 PUFF INHALER INH SCH ×2 (07:43→18:19)
[2021-10-30] MEDS: NIFEdipine XL 60 MG TAB PO SCH ×2 (08:29→20:06)
[2021-10-30] MEDS: Fluticasone Propionate Nasal Spray 16 gm Bottle NASAL SCH (08:29)
[2021-10-30] MEDS: Labetalol 100 MG TAB PO SCH ×2 (08:29→20:07)
[2021-10-30] MEDS: Cefepime 1 GM in Sodium Chloride 0.9% 100 ML IVPB SCH (09:34)
[2021-10-30] MEDS: hydrALAZINE 20 MG/ML VIAL SLOW IVP PRN ×2 (09:41→20:33)
[2021-10-30] MEDS ORDERED: Labetalol 100 MG TAB PO SCH (10:00)
[2021-10-30 10:10] LABS: Vancomycin, Trough 10.2 ug/mL
[2021-10-30] MEDS ORDERED: Vancomycin HCl 250 MG in Sodium Chloride 0.9% 100 ML IVPB SCH (11:15)
[2021-10-30] MEDS ORDERED: Vancomycin HCl 750 MG in Sodium Chloride 0.9% 250 ML 250 ML IVPB SCH (11:15)
[2021-10-30] MEDS ORDERED: Vancomycin HCl 500 MG in Sodium Chloride 0.9% 100 ML IVPB SCH ×2 (11:15→11:30)
[2021-10-30] MEDS ORDERED: Vancomycin 1 GM in Premix Bag 1 BAG IVPB SCH (11:15)
[2021-10-30] MEDS ORDERED: HOLD VANCOMYCIN FOR LEVEL >20 FS SCH (11:15)
[2021-10-30] MEDS ORDERED: Lidocaine 1% (PF) 30 ML VIAL ONE ×2 (16:19→16:20)
[2021-10-30] MEDS ORDERED: hydrALAZINE 20 MG/ML VIAL SLOW IVP SCH (21:45)
[2021-10-31 04:19] LABS: #Eosinphils 0.1 thou/uL (0.0-0.7); #Lymphocytes 0.4 thou/uL (1.20-3.40); #Monocytes 0.6 thou/uL (0.11-0.59); #Neutrophils 6.7 thou/uL (1.40-6.50); %Basophils 0.3 % (0.0-1.0); %Eosinophils 1.5 % (0.0-10.0); %Lymphocytes 4.7 % (21.0-51.0); %Monocytes 7.9 % (0.0-10.0); %Neutrophils 85.5 % (42.0-75.0); Hemoglobin 10.2 g/dL (14.0-18.0); Mean Corpuscular HGB CONC 33.2 g/dL (32.0-36.0); Mean Corpuscular Hemoglobin 36.4 pg (27.0-31.0); Mean Platelet Volume 8.6 fL (7.4-10.4); Platelet Count 104 thou/uL (130-400); RBC Distribution Width 15.5 % (11.5-14.5); Red Blood Cell (RBC) Count 2.81 mill/uL (4.70-6.10); White Blood Cell (WBC) Count 7.8 thou/uL (4.8-10.8)
[2021-10-31 04:39] LABS: Anion Gap 19 mmol/L (10-20); BUN (Urea Nitrogen) 64 mg/dL (8.4-25.7); Calc. Creatinine Clearance 9 mL/min (70-130); Calcium 9.5 mg/dL (7.8-10.44); Carbon Dioxide 26 mmol/L (22-29); Chloride 98 mmol/L (98-107); Glucose 99 mg/dL (70-105); Potassium 4.1 mmol/L (3.5-5.1); Sodium 139 mmol/L (136-145)
[2021-10-31] MEDS: hydrALAZINE 20 MG/ML VIAL SLOW IVP PRN ×2 (05:13→11:15)
[2021-10-31] MEDS ORDERED: hydrALAZINE 20 MG/ML VIAL SLOW IVP SCH (06:30)
[2021-10-31] MEDS: Mometasone 200 MCG/Formoterol 5 MCG 120 PUFF INHALER INH SCH ×2 (06:42→18:41)
[2021-10-31] MEDS: NIFEdipine XL 60 MG TAB PO SCH ×2 (07:21→21:16)
[2021-10-31] MEDS: Labetalol 100 MG TAB PO SCH ×3 (07:22→21:17)
[2021-10-31] MEDS: Fluticasone Propionate Nasal Spray 16 gm Bottle NASAL SCH (07:23)
[2021-10-31] MEDS: hydrALAZINE 25 MG TAB PO SCH ×3 (09:44→21:17)
[2021-10-31] MEDS: Cefepime 1 GM in Sodium Chloride 0.9% 100 ML IVPB SCH (11:16)
[2021-10-31] MEDS ORDERED: Nitroglycerin 2% Ointment 1 INCH/1 GM Packet TOP SCH (12:45)
[2021-10-31] MEDS ORDERED: Lorazepam 2 MG/ML VIAL SLOW IVP SCH (12:45)
[2021-10-31] MEDS ORDERED: ALPRAZolam 1 MG TAB PO SCH (21:00)
[2021-10-31] MEDS: busPIRone HCl 5 MG TAB PO SCH (21:17)
[2021-11-01 04:41] LABS: #Eosinphils 0.1 thou/uL (0.0-0.7); #Lymphocytes 0.3 thou/uL (1.20-3.40); #Monocytes 0.6 thou/uL (0.11-0.59); #Neutrophils 5.4 thou/uL (1.40-6.50); %Basophils 0.5 % (0.0-1.0); %Eosinophils 1.2 % (0.0-10.0); %Lymphocytes 4.9 % (21.0-51.0); %Monocytes 9.5 % (0.0-10.0); %Neutrophils 83.9 % (42.0-75.0); Hemoglobin 10.1 g/dL (14.0-18.0); Mean Corpuscular HGB CONC 33.9 g/dL (32.0-36.0); Mean Platelet Volume 8.6 fL (7.4-10.4); Platelet Count 97 thou/uL (130-400); Red Blood Cell (RBC) Count 2.73 mill/uL (4.70-6.10); White Blood Cell (WBC) Count 6.4 thou/uL (4.8-10.8)
[2021-11-01 04:58] LABS: Anion Gap 14 mmol/L (10-20); BUN (Urea Nitrogen) 33 mg/dL (8.4-25.7); Calc. Creatinine Clearance 13 mL/min (70-130); Calcium 9.5 mg/dL (7.8-10.44); Carbon Dioxide 30 mmol/L (22-29); Chloride 98 mmol/L (98-107); Glucose 101 mg/dL (70-105); Potassium 4.2 mmol/L (3.5-5.1); Sodium 138 mmol/L (136-145)
[2021-11-01] MEDS: Mometasone 200 MCG/Formoterol 5 MCG 120 PUFF INHALER INH SCH (07:15)
[2021-11-01] MEDS: hydrALAZINE 25 MG TAB PO SCH (08:42)
[2021-11-01] MEDS: Labetalol 100 MG TAB PO SCH (08:42)
[2021-11-01] MEDS: busPIRone HCl 5 MG TAB PO SCH (08:42)
[2021-11-01] MEDS: NIFEdipine XL 60 MG TAB PO SCH (08:43)
[2021-11-01] MEDS ORDERED: DULoxetine 30 MG CAP PO SCH (09:00)
[2021-11-01] MEDS: Fluticasone Propionate Nasal Spray 16 gm Bottle NASAL SCH (10:51)
[2021-11-01 11:51] VITALS: BP 134/67; TEMP 97.3
[2021-11-01] MEDS ORDERED: hydrALAZINE 25 MG TAB PO SCH (14:00)
[2021-11-01 22:09] LABS: Metanephrine,Plasma 36.5 pg/mL (0.0-88.0); Normetanephrine,Pl 161.1 pg/mL (0.0-244.0)
== END 2021-11-01 13:12 | disposition home or self-care (01) | DRG 291 ==
LOC: ERS 01:04 → ERHOLD 03:50 → IMCU/EMU 07:05 → CCU 10:57 → 2NO 10-31 15:49
PROVIDERS: ADMIT Internal Medicine; ATTEND Internal Medicine
PROC: 5A1D70Z Performance of Urinary Filtration, Intermittent, Less than 6 Hours Per Day (ICD-10-PCS; principal; 2021-10-29)
PROC: 5A09357 Assistance with Respiratory Ventilation, Less than 24 Consecutive Hours, Continuous Positive Airway Pressure (ICD-10-PCS; 2021-10-29)
DX: I13.2 Hypertensive heart and chronic kidney disease with heart failure and with stage 5 chronic kidney disease, or end stage renal disease (principal); J96.01 Acute respiratory failure with hypoxia; N18.6 End stage renal disease; I50.1 Left ventricular failure, unspecified; Z20.822 Contact with and (suspected) exposure to COVID-19; I16.0 Hypertensive urgency; D63.1 Anemia in chronic kidney disease; D69.6 Thrombocytopenia, unspecified; F41.9 Anxiety disorder, unspecified; E78.5 Hyperlipidemia, unspecified; E78.00 Pure hypercholesterolemia, unspecified; F17.220 Nicotine dependence, chewing tobacco, uncomplicated; R77.8 Other specified abnormalities of plasma proteins; D72.829 Elevated white blood cell count, unspecified; E83.41 Hypermagnesemia; F41.1 Generalized anxiety disorder; E83.52 Hypercalcemia; Z28.21 Immunization not carried out because of patient refusal; Z99.2 Dependence on renal dialysis; Z90.5 Acquired absence of kidney; Z79.899 Other long term (current) drug therapy; Z98.890 Other specified postprocedural states; Z83.3 Family history of diabetes mellitus; Z91.14 Patient's other noncompliance with medication regimen; Z91.15 Patient's noncompliance with renal dialysis
CPT/HCPCS: 36415; 36416; 71045; 80048; 80053; 80202; 82553; 83735; 83835; 83880; 84484; 85025; 86706; 87040; 87340; 90935; 93005; 94660; 96374; 96375; 96376; C9113; G0257; J0360; J0692; J1940; J2060; J3370; J3490; J7050; U0002

== ENCOUNTER 2021-11-29 17:08 | Inpatient (IN) | payer MEDICARE, BC ==
[2021-11-29] MEDS ORDERED: hydrALAZINE 20 MG/ML VIAL ONE (17:28)
[2021-11-29 17:30] LABS: #Eosinphils 0.1 thou/uL (0.0-0.7); #Lymphocytes 0.5 thou/uL (1.20-3.40); #Monocytes 0.8 thou/uL (0.11-0.59); #Neutrophils 10.9 thou/uL (1.40-6.50); %Basophils 0.4 % (0.0-1.0); %Eosinophils 1.1 % (0.0-10.0); %Lymphocytes 4.2 % (21.0-51.0); %Monocytes 6.7 % (0.0-10.0); %Neutrophils 87.7 % (42.0-75.0); Hemoglobin 11.7 g/dL (14.0-18.0); Mean Corpuscular HGB CONC 32.4 g/dL (32.0-36.0); Mean Corpuscular Hemoglobin 35.2 pg (27.0-31.0); Platelet Count 159 thou/uL (130-400); RBC Distribution Width 15.6 % (11.5-14.5); Red Blood Cell (RBC) Count 3.33 mill/uL (4.70-6.10); White Blood Cell (WBC) Count 12.4 thou/uL (4.8-10.8)
[2021-11-29 17:59] LABS: ALT (SGPT) 35 U/L (8-55); AST (SGOT) 33 U/L (5-34); Albumin 3.9 g/dL (3.5-5.0); Alkaline Phosphatase 119 U/L (40-110); Anion Gap 23 mmol/L (10-20); BUN (Urea Nitrogen) 61 mg/dL (8.4-25.7); Bilirubin, Total 1.3 mg/dL (0.2-1.2); Calc. Creatinine Clearance 0 mL/min (70-130); Calcium 9.7 mg/dL (7.8-10.44); Carbon Dioxide 24 mmol/L (22-29); Chloride 99 mmol/L (98-107); Glucose 98 mg/dL (70-105); Protein, Total 6.9 g/dL (6.0-8.3); Sodium 141 mmol/L (136-145)
[2021-11-29 18:14] LABS: CKMB 3.9 ng/mL (0-6.6)
[2021-11-29] MEDS ORDERED: Lorazepam 2 MG/ML VIAL ONE (19:34)
[2021-11-29 19:41] LABS: SARS-CoV-2 NAA Rapid Test Not Detected (NotDetected)
[2021-11-29] MEDS ORDERED: Ondansetron PF 4 MG/2 ML Vial IVP PRN (21:17)
[2021-11-29] MEDS ORDERED: Acetaminophen 325 MG TAB PO PRN (21:17)
[2021-11-29] MEDS ORDERED: NIFEdipine XL 60 MG TAB PO SCH (21:30)
[2021-11-29] MEDS ORDERED: Labetalol HCl 100 MG TAB PO SCH (21:30)
[2021-11-29] MEDS ORDERED: hydrALAZINE 25 MG TAB PO SCH (21:30)
[2021-11-29] MEDS ORDERED: hydrALAZINE 25 MG TAB ONE (21:49)
[2021-11-29] MEDS: hydrALAZINE 25 MG TAB PO SCH (22:33)
[2021-11-29] MEDS ORDERED: niCARdipine 40MG In NaCl 40 MG/200 ML BAG IVPB SCH (23:45)
[2021-11-30 00:45] LABS: Troponin I 0.148 ng/mL (< 0.028)
[2021-11-30] MEDS: niCARdipine 50 MG in Sodium Chloride 0.9% 250 ML 230 ML IV SCH ×5 (01:17→09:15)
[2021-11-30 03:26] LABS: #Eosinphils 0.1 thou/uL (0.0-0.7); #Lymphocytes 0.6 thou/uL (1.20-3.40); #Monocytes 0.5 thou/uL (0.11-0.59); #Neutrophils 6.4 thou/uL (1.40-6.50); %Basophils 0.4 % (0.0-1.0); %Eosinophils 1.5 % (0.0-10.0); %Lymphocytes 7.9 % (21.0-51.0); %Monocytes 7.1 % (0.0-10.0); %Neutrophils 83.2 % (42.0-75.0); Hemoglobin 10.1 g/dL (14.0-18.0); Mean Corpuscular HGB CONC 32.6 g/dL (32.0-36.0); Mean Corpuscular Hemoglobin 35.1 pg (27.0-31.0); Mean Platelet Volume 8.3 fL (7.4-10.4); Platelet Count 123 thou/uL (130-400); RBC Distribution Width 15.5 % (11.5-14.5); Red Blood Cell (RBC) Count 2.89 mill/uL (4.70-6.10); White Blood Cell (WBC) Count 7.7 thou/uL (4.8-10.8)
[2021-11-30 04:00] LABS: Anion Gap 20 mmol/L (10-20); BUN (Urea Nitrogen) 70 mg/dL (8.4-25.7); Calc. Creatinine Clearance 0 mL/min (70-130); Calcium 9.5 mg/dL (7.8-10.44); Carbon Dioxide 28 mmol/L (22-29); Chloride 99 mmol/L (98-107); Glucose 82 mg/dL (70-105); Potassium 4.6 mmol/L (3.5-5.1); Sodium 142 mmol/L (136-145)
[2021-11-30] MEDS ORDERED: hydrALAZINE 25 MG TAB ONE (07:28)
[2021-11-30] MEDS: hydrALAZINE 25 MG TAB PO SCH ×3 (07:38→21:25)
[2021-11-30] MEDS ORDERED: niCARdipine 25 MG/10 ML VIAL ONE ×2 (08:26→09:55)
[2021-11-30] MEDS ORDERED: Labetalol HCl 100 MG/20 ML VIAL ONE (08:26)
[2021-11-30] MEDS: Sevelamer Carbonate 800 MG TAB PO SCH ×3 (08:30→19:51)
[2021-11-30] MEDS: NIFEdipine XL 60 MG TAB PO SCH ×2 (08:30→19:51)
[2021-11-30] MEDS: Heparin 5,000 UNITS/ML VIAL SC SCH ×2 (08:30→21:27)
[2021-11-30] MEDS ORDERED: hydrALAZINE 25 MG TAB PO SCH (09:00)
[2021-11-30 09:26] LABS: HBSAg Index 0.27 S/CO (0-0.99); Hep B Surf Ag Non-Reactive S/CO (NonReactive)
[2021-11-30 13:44] LABS: Ref Lab Test Ordered PLASMA 5HIAA; Reference Lab Name LABCORP
[2021-11-30] MEDS: Mometasone 200 MCG/Formoterol 5 MCG 120 PUFF INHALER INH SCH ×2 (14:39→19:18)
[2021-11-30] MEDS: Labetalol HCl 100 MG TAB PO SCH ×3 (15:55→19:52)
[2021-11-30] MEDS ORDERED: Labetalol HCl 100 MG TAB PO SCH (17:20)
[2021-11-30] MEDS: hydrALAZINE 20 MG/ML VIAL SLOW IVP PRN (17:46)
[2021-11-30] MEDS ORDERED: hydrALAZINE 20 MG/ML VIAL ONE (17:47)
[2021-11-30 18:43] VITALS: BMI 20.5
[2021-12-01 04:41] LABS: #Eosinphils 0.1 thou/uL (0.0-0.7); #Lymphocytes 0.5 thou/uL (1.20-3.40); #Monocytes 0.5 thou/uL (0.11-0.59); #Neutrophils 5.5 thou/uL (1.40-6.50); %Basophils 0.4 % (0.0-1.0); %Eosinophils 2.1 % (0.0-10.0); %Lymphocytes 7.2 % (21.0-51.0); %Monocytes 7.6 % (0.0-10.0); %Neutrophils 82.7 % (42.0-75.0); Hemoglobin 9.9 g/dL (14.0-18.0); Mean Corpuscular HGB CONC 32.4 g/dL (32.0-36.0); Mean Corpuscular Hemoglobin 35.2 pg (27.0-31.0); Mean Platelet Volume 7.9 fL (7.4-10.4); Platelet Count 136 thou/uL (130-400); RBC Distribution Width 15.4 % (11.5-14.5); Red Blood Cell (RBC) Count 2.82 mill/uL (4.70-6.10); White Blood Cell (WBC) Count 6.7 thou/uL (4.8-10.8)
[2021-12-01 05:12] LABS: Anion Gap 17 mmol/L (10-20); BUN (Urea Nitrogen) 41 mg/dL (8.4-25.7); Calc. Creatinine Clearance 12 mL/min (70-130); Calcium 9.4 mg/dL (7.8-10.44); Carbon Dioxide 27 mmol/L (22-29); Chloride 98 mmol/L (98-107); Glucose 92 mg/dL (70-105); Potassium 3.9 mmol/L (3.5-5.1); Sodium 138 mmol/L (136-145)
[2021-12-01] MEDS: hydrALAZINE 25 MG TAB PO SCH ×3 (05:18→20:41)
[2021-12-01] MEDS: Mometasone 200 MCG/Formoterol 5 MCG 120 PUFF INHALER INH SCH ×2 (05:20→22:46)
[2021-12-01] MEDS: Labetalol HCl 100 MG TAB PO SCH ×3 (08:18→21:24)
[2021-12-01] MEDS: Heparin 5,000 UNITS/ML VIAL SC SCH ×2 (08:18→20:41)
[2021-12-01] MEDS: Sevelamer Carbonate 800 MG TAB PO SCH ×3 (08:18→20:40)
[2021-12-01] MEDS: NIFEdipine XL 60 MG TAB PO SCH ×2 (08:18→20:40)
[2021-12-01] MEDS: hydrALAZINE 20 MG/ML VIAL SLOW IVP PRN (23:50)
[2021-12-02] MEDS: hydrALAZINE 20 MG/ML VIAL SLOW IVP PRN ×2 (03:52→16:15)
[2021-12-02] MEDS: Labetalol HCl 100 MG TAB PO SCH ×3 (04:52→20:56)
[2021-12-02 05:08] LABS: #Eosinphils 0.2 thou/uL (0.0-0.7); #Lymphocytes 0.5 thou/uL (1.20-3.40); #Monocytes 0.5 thou/uL (0.11-0.59); #Neutrophils 6.3 thou/uL (1.40-6.50); %Basophils 0.4 % (0.0-1.0); %Eosinophils 2.6 % (0.0-10.0); %Lymphocytes 6.5 % (21.0-51.0); %Monocytes 6.9 % (0.0-10.0); %Neutrophils 83.6 % (42.0-75.0); Hemoglobin 10.6 g/dL (14.0-18.0); Mean Corpuscular HGB CONC 32.4 g/dL (32.0-36.0); Mean Platelet Volume 8.1 fL (7.4-10.4); Platelet Count 145 thou/uL (130-400); RBC Distribution Width 15.5 % (11.5-14.5); Red Blood Cell (RBC) Count 2.85 mill/uL (4.70-6.10); White Blood Cell (WBC) Count 7.5 thou/uL (4.8-10.8)
[2021-12-02 05:33] LABS: Anion Gap 18 mmol/L (10-20); BUN (Urea Nitrogen) 51 mg/dL (8.4-25.7); Calc. Creatinine Clearance 9 mL/min (70-130); Calcium 9.5 mg/dL (7.8-10.44); Carbon Dioxide 24 mmol/L (22-29); Chloride 100 mmol/L (98-107); Glucose 86 mg/dL (70-105); Potassium 4.2 mmol/L (3.5-5.1); Sodium 138 mmol/L (136-145)
[2021-12-02] MEDS: Mometasone 200 MCG/Formoterol 5 MCG 120 PUFF INHALER INH SCH ×2 (05:54→19:12)
[2021-12-02] MEDS: Sevelamer Carbonate 800 MG TAB PO SCH ×3 (08:22→20:56)
[2021-12-02] MEDS: Lisinopril 20 MG TAB PO SCH ×2 (08:22→20:57)
[2021-12-02] MEDS: DULoxetine 30 MG CAP PO SCH (08:22)
[2021-12-02] MEDS: NIFEdipine XL 60 MG TAB PO SCH ×2 (08:23→20:55)
[2021-12-02] MEDS: Heparin 5,000 UNITS/ML VIAL SC SCH ×2 (08:23→20:57)
[2021-12-02] MEDS ORDERED: DULoxetine 30 MG CAP PO SCH (09:00)
[2021-12-02] MEDS: hydrALAZINE 25 MG TAB PO SCH (12:17)
[2021-12-03] MEDS: hydrALAZINE 20 MG/ML VIAL SLOW IVP PRN ×2 (00:22→04:43)
[2021-12-03] MEDS: Mometasone 200 MCG/Formoterol 5 MCG 120 PUFF INHALER INH SCH ×2 (05:14→19:00)
[2021-12-03] MEDS ORDERED: cloNIDine 0.1 MG TAB PO SCH (08:25)
[2021-12-03] MEDS ORDERED: cloNIDine 0.3mg/24 Hour PATCH TD SCH (09:00)
[2021-12-03] MEDS: Labetalol HCl 100 MG TAB PO SCH ×2 (09:05→20:51)
[2021-12-03] MEDS: Sevelamer Carbonate 800 MG TAB PO SCH ×3 (09:05→20:42)
[2021-12-03] MEDS: NIFEdipine XL 60 MG TAB PO SCH ×2 (09:05→20:42)
[2021-12-03] MEDS: DULoxetine 30 MG CAP PO SCH (09:06)
[2021-12-03] MEDS: Lisinopril 20 MG TAB PO SCH ×2 (09:06→20:42)
[2021-12-03] MEDS: Heparin 5,000 UNITS/ML VIAL SC SCH ×2 (09:06→20:43)
[2021-12-03] MEDS ORDERED: Spironolactone 25 MG TAB PO SCH (18:00)
[2021-12-04 05:37] LABS: Thyroid Stimulating Hormone 1.3509 uIU/mL (0.35-4.94)
[2021-12-04] MEDS: Mometasone 200 MCG/Formoterol 5 MCG 120 PUFF INHALER INH SCH (07:25)
[2021-12-04] MEDS ORDERED: Spironolactone 25 MG TAB PO SCH (08:00)
[2021-12-04 09:05] VITALS: BP 160/76; TEMP 97.4
[2021-12-04] MEDS: DULoxetine 30 MG CAP PO SCH (09:51)
[2021-12-04] MEDS: Labetalol HCl 100 MG TAB PO SCH (09:51)
[2021-12-04] MEDS: Lisinopril 20 MG TAB PO SCH (09:52)
[2021-12-04] MEDS: NIFEdipine XL 60 MG TAB PO SCH (09:52)
[2021-12-04] MEDS: Sevelamer Carbonate 800 MG TAB PO SCH (09:52)
[2021-12-04] MEDS: Heparin 5,000 UNITS/ML VIAL SC SCH (09:53)
== END 2021-12-04 10:55 | disposition home or self-care (01) | DRG 291 ==
LOC: ERS 17:08 → ERHOLD 18:47 → 2NO 11-30 18:13
PROVIDERS: ADMIT Internal Medicine; ATTEND Internal Medicine
PROC: 5A1D70Z Performance of Urinary Filtration, Intermittent, Less than 6 Hours Per Day (ICD-10-PCS; principal; 2021-11-30)
DX: I13.2 Hypertensive heart and chronic kidney disease with heart failure and with stage 5 chronic kidney disease, or end stage renal disease (principal); J96.01 Acute respiratory failure with hypoxia; N18.6 End stage renal disease; I50.33 Acute on chronic diastolic (congestive) heart failure; I16.1 Hypertensive emergency; N25.81 Secondary hyperparathyroidism of renal origin; D63.1 Anemia in chronic kidney disease; E78.00 Pure hypercholesterolemia, unspecified; E78.5 Hyperlipidemia, unspecified; F41.9 Anxiety disorder, unspecified; F17.210 Nicotine dependence, cigarettes, uncomplicated; D72.829 Elevated white blood cell count, unspecified; R77.8 Other specified abnormalities of plasma proteins; I15.9 Secondary hypertension, unspecified; E83.39 Other disorders of phosphorus metabolism; Z79.899 Other long term (current) drug therapy; Z99.2 Dependence on renal dialysis; Z79.51 Long term (current) use of inhaled steroids
CPT/HCPCS: 36415; 71045; 71046; 76770; 80048; 80053; 82088; 82553; 82607; 82746; 83880; 84244; 84443; 84484; 85025; 87340; 90935; 93005; 93975; 94760; 96374; 96375; G0257; J0360; J1644; J2060; J2405; J7050; U0002

== ENCOUNTER 2021-12-30 20:37 | Inpatient (IN) | payer MEDICARE, BC ==
[~2021-12-30 20:37] MED LIST: Iopamidol 370 76% 100 ML VIAL ONE
[2021-12-30 21:32] LABS: ALT (SGPT) 393 U/L (8-55); AST (SGOT) 382 U/L (5-34); Albumin 4.2 g/dL (3.4-4.8); Alkaline Phosphatase 113 U/L (40-110); Anion Gap 32 mmol/L (10-20); BUN (Urea Nitrogen) 80 mg/dL (8.4-25.7); Bilirubin, Total 2.5 mg/dL (0.2-1.2); CK (CPK) 70 U/L (30-200); Calc. Creatinine Clearance 0 mL/min (70-130); Calcium 10.1 mg/dL (7.8-10.44); Carbon Dioxide 21 mmol/L (23-31); Chloride 96 mmol/L (98-107); Globulin 3.1 g/dL (2.4-3.5); Glucose 76 mg/dL (80-115); Potassium 5.8 mmol/L (3.5-5.1); Protein, Total 7.3 g/dL (5.8-8.1); Sodium 143 mmol/L (136-145)
[2021-12-30 21:39] LABS: Band 6 % (5-11); Hemoglobin 12.6 g/dL (14.0-18.0); Lymphocytes 5 % (21-51); MDiff Complete? YES; Mean Corpuscular HGB CONC 32.2 g/dL (32.0-36.0); Mean Corpuscular Hemoglobin 34.9 pg (27.0-31.0); Mean Platelet Volume 7.9 fL (7.4-10.4); Monocytes 7 % (0-10); Neutrophil 81 % (42-75); Platelet Count 254 thou/uL (130-400); RBC Distribution Width 16.1 % (11.5-14.5); White Blood Cell (WBC) Count 22.1 thou/uL (4.8-10.8)
[2021-12-30 21:54] LABS: CKMB 3.1 ng/mL (0-6.6)
[2021-12-30] MEDS ORDERED: Labetalol HCl 100 MG TAB ONE (22:01)
[2021-12-30] MEDS ORDERED: hydrALAZINE 20 MG/ML VIAL ONE ×2 (22:01→23:21)
[2021-12-30] MEDS ORDERED: NIFEdipine XL 30 MG TAB ONE (22:01)
[2021-12-30] MEDS ORDERED: cefTRIAXone\\ROCEPHIN 1 GM VIAL ONE (23:51)
[2021-12-31] MEDS ORDERED: Azithromycin 500 MG VIAL ONE (00:41)
[2021-12-31] MEDS ORDERED: Senokot S 8.6-50 MG TAB PO PRN (00:58)
[2021-12-31] MEDS ORDERED: Ondansetron ODT 4 MG TAB PO PRN (00:58)
[2021-12-31] MEDS ORDERED: Acetaminophen 325 MG TAB PO PRN (00:58)
[2021-12-31] MEDS ORDERED: Ondansetron PF 4 MG/2 ML Vial IVP PRN (00:58)
[2021-12-31] MEDS ORDERED: Labetalol HCl 100 MG/20 ML VIAL SLOW IVP PRN (01:05)
[2021-12-31] MEDS ORDERED: Non-Formulary Item 1 EACH (Hydralazine Hcl [Hydralazine Hcl] 50 MG Tablet) PO SCH (01:15)
[2021-12-31 01:58] LABS: SARS-CoV-2 NAA Rapid Test Not Detected (NotDetected)
[2021-12-31 04:25] LABS: #Lymphocytes 0.8 thou/uL (1.20-3.40); #Monocytes 0.8 thou/uL (0.11-0.59); #Neutrophils 12.4 thou/uL (1.40-6.50); %Basophils 0.1 % (0.0-1.0); %Eosinophils 0.2 % (0.0-10.0); %Lymphocytes 5.5 % (21.0-51.0); %Monocytes 5.9 % (0.0-10.0); %Neutrophils 88.4 % (42.0-75.0); Hemoglobin 11.1 g/dL (14.0-18.0); Mean Corpuscular HGB CONC 32.7 g/dL (32.0-36.0); Mean Corpuscular Hemoglobin 35.4 pg (27.0-31.0); Mean Platelet Volume 8.2 fL (7.4-10.4); Platelet Count 173 thou/uL (130-400); RBC Distribution Width 16.4 % (11.5-14.5); Red Blood Cell (RBC) Count 3.15 mill/uL (4.70-6.10)
[2021-12-31 04:45] LABS: Anion Gap 26 mmol/L (10-20); BUN (Urea Nitrogen) 90 mg/dL (8.4-25.7); Calc. Creatinine Clearance 8 mL/min (70-130); Calcium 10.1 mg/dL (7.8-10.44); Carbon Dioxide 25 mmol/L (23-31); Chloride 96 mmol/L (98-107); Glucose 101 mg/dL (80-115); Potassium 5.4 mmol/L (3.5-5.1); Sodium 142 mmol/L (136-145)
[2021-12-31 04:55] LABS: Lactic Acid 1.7 mmol/L (0.5-2.2)
[2021-12-31] MEDS: hydrALAZINE 25 MG TAB PO SCH ×3 (06:20→21:03)
[2021-12-31] MEDS: Mometasone 200 MCG/Formoterol 5 MCG 120 PUFF INHALER INH SCH ×2 (08:04→19:30)
[2021-12-31] MEDS ORDERED: cloNIDine 0.3mg/24 Hour PATCH TD SCH (09:00)
[2021-12-31] MEDS: Sevelamer Carbonate 800 MG TAB PO SCH ×3 (10:54→16:23)
[2021-12-31] MEDS: Labetalol HCl 100 MG TAB PO SCH ×3 (10:55→21:00)
[2021-12-31] MEDS: NIFEdipine XL 60 MG TAB PO SCH ×2 (14:41→20:59)
[2021-12-31] MEDS: Folic Acid/Vit B Comp W-C PO SCH (14:41)
[2021-12-31] MEDS: DULoxetine 30 MG CAP PO SCH (14:42)
[2021-12-31] MEDS: Lisinopril 20 MG TAB PO SCH (21:00)
[2022-01-01] MEDS: cefTRIAXone\\ROCEPHIN 1 GM in Sodium Chloride 0.9% 100 ML IVPB SCH (00:11)
[2022-01-01] MEDS: Azithromycin 500 MG in Sodium Chloride 0.9% 250 ML 250 ML IVPB SCH (00:11)
[2022-01-01 05:25] LABS: #Eosinphils 0.1 thou/uL (0.0-0.7); #Lymphocytes 0.6 thou/uL (1.20-3.40); #Monocytes 0.5 thou/uL (0.11-0.59); #Neutrophils 9.2 thou/uL (1.40-6.50); %Eosinophils 0.6 % (0.0-10.0); %Lymphocytes 5.3 % (21.0-51.0); %Monocytes 5.1 % (0.0-10.0); %Neutrophils 89.1 % (42.0-75.0); Hemoglobin 9.8 g/dL (14.0-18.0); Mean Corpuscular HGB CONC 32.7 g/dL (32.0-36.0); Mean Corpuscular Hemoglobin 35.7 pg (27.0-31.0); Mean Platelet Volume 7.7 fL (7.4-10.4); Platelet Count 157 thou/uL (130-400); RBC Distribution Width 15.9 % (11.5-14.5); Red Blood Cell (RBC) Count 2.74 mill/uL (4.70-6.10); White Blood Cell (WBC) Count 10.3 thou/uL (4.8-10.8)
[2022-01-01] MEDS: hydrALAZINE 25 MG TAB PO SCH (05:38)
[2022-01-01 05:40] LABS: Anion Gap 18 mmol/L (10-20); BUN (Urea Nitrogen) 53 mg/dL (8.4-25.7); Calc. Creatinine Clearance 11 mL/min (70-130); Calcium 9.2 mg/dL (7.8-10.44); Carbon Dioxide 27 mmol/L (23-31); Chloride 99 mmol/L (98-107); Glucose 96 mg/dL (80-115); Potassium 4.3 mmol/L (3.5-5.1); Sodium 140 mmol/L (136-145)
[2022-01-01 05:41] LABS: ALT (SGPT) 308 U/L (8-55); AST (SGOT) 149 U/L (5-34); Albumin 3.2 g/dL (3.4-4.8); Alkaline Phosphatase 80 U/L (40-110); Bilirubin, Direct 0.8 mg/dL (0.1-0.3); Bilirubin, Total 1.2 mg/dL (0.2-1.2); Protein, Total 5.7 g/dL (5.8-8.1)
[2022-01-01] MEDS: Mometasone 200 MCG/Formoterol 5 MCG 120 PUFF INHALER INH SCH ×2 (07:41→19:00)
[2022-01-01] MEDS: Sevelamer Carbonate 800 MG TAB PO SCH ×3 (09:45→17:45)
[2022-01-01] MEDS: Labetalol HCl 100 MG TAB PO SCH ×3 (09:45→20:50)
[2022-01-01] MEDS: Lisinopril 20 MG TAB PO SCH ×2 (09:45→20:50)
[2022-01-01] MEDS: NIFEdipine XL 60 MG TAB PO SCH ×2 (09:45→20:50)
[2022-01-01] MEDS: Folic Acid/Vit B Comp W-C PO SCH (09:45)
[2022-01-01] MEDS: DULoxetine 30 MG CAP PO SCH (09:45)
[2022-01-01 18:14] LABS: Pleural Fluid, Protein 1.6 g/dL
[2022-01-01 18:19] LABS: RBC Count-Automated (BF) 52113 /cu.mm; WBC/Nucleated-Auto (BF) 104 /cu.mm
[2022-01-01 18:46] LABS: BF Color Red; Body Fluid Source Thoracentesis Fluid; Clarity Cloudy/Turbid (Clear); Tube # EDTA
[2022-01-01 18:52] LABS: BF Segmented Neutrophils 65 %; Cell Count Non Hematic 16 %; Lymphocytes 17 %
[2022-01-02] MEDS: cefTRIAXone\\ROCEPHIN 1 GM in Sodium Chloride 0.9% 100 ML IVPB SCH
[2022-01-02] MEDS: Azithromycin 500 MG in Sodium Chloride 0.9% 250 ML 250 ML IVPB SCH (00:05)
[2022-01-02] MEDS: Mometasone 200 MCG/Formoterol 5 MCG 120 PUFF INHALER INH SCH ×2 (06:57→19:20)
[2022-01-02 09:20] LABS: #Eosinphils 0.1 thou/uL (0.0-0.7); #Lymphocytes 0.5 thou/uL (1.20-3.40); #Monocytes 0.6 thou/uL (0.11-0.59); #Neutrophils 9.2 thou/uL (1.40-6.50); %Basophils 0.1 % (0.0-1.0); %Eosinophils 0.7 % (0.0-10.0); %Lymphocytes 4.6 % (21.0-51.0); %Monocytes 5.4 % (0.0-10.0); %Neutrophils 89.2 % (42.0-75.0); Hemoglobin 9.8 g/dL (14.0-18.0); Mean Corpuscular HGB CONC 33.6 g/dL (32.0-36.0); Mean Corpuscular Hemoglobin 36.9 pg (27.0-31.0); Mean Platelet Volume 8.1 fL (7.4-10.4); Platelet Count 144 thou/uL (130-400); RBC Distribution Width 15.8 % (11.5-14.5); Red Blood Cell (RBC) Count 2.67 mill/uL (4.70-6.10); White Blood Cell (WBC) Count 10.3 thou/uL (4.8-10.8)
[2022-01-02 09:44] LABS: ALT (SGPT) 307 U/L (8-55); AST (SGOT) 127 U/L (5-34); Albumin 3.4 g/dL (3.4-4.8); Alkaline Phosphatase 87 U/L (40-110); Anion Gap 21 mmol/L (10-20); BUN (Urea Nitrogen) 78 mg/dL (8.4-25.7); Bilirubin, Direct 0.5 mg/dL (0.1-0.3); Calc. Creatinine Clearance 8 mL/min (70-130); Calcium 9.4 mg/dL (7.8-10.44); Carbon Dioxide 24 mmol/L (23-31); Chloride 96 mmol/L (98-107); Glucose 90 mg/dL (80-115); Protein, Total 6.4 g/dL (5.8-8.1); Sodium 136 mmol/L (136-145)
[2022-01-02] MEDS: Sevelamer Carbonate 800 MG TAB PO SCH ×3 (15:06→17:57)
[2022-01-02] MEDS: Labetalol HCl 100 MG TAB PO SCH ×3 (15:06→21:00)
[2022-01-02] MEDS: NIFEdipine XL 60 MG TAB PO SCH ×2 (15:07→21:00)
[2022-01-02] MEDS: Folic Acid/Vit B Comp W-C PO SCH (15:07)
[2022-01-02] MEDS: DULoxetine 30 MG CAP PO SCH (15:07)
[2022-01-02] MEDS: Lisinopril 20 MG TAB PO SCH ×2 (15:07→21:01)
[2022-01-02] MEDS: Azithromycin 250 MG TAB PO SCH (21:01)
[2022-01-03] MEDS: cefTRIAXone\\ROCEPHIN 1 GM in Sodium Chloride 0.9% 100 ML IVPB SCH (00:48)
[2022-01-03 05:41] LABS: Anion Gap 18 mmol/L (10-20); BUN (Urea Nitrogen) 43 mg/dL (8.4-25.7); Calc. Creatinine Clearance 12 mL/min (70-130); Carbon Dioxide 26 mmol/L (23-31); Chloride 96 mmol/L (98-107); Glucose 96 mg/dL (80-115); Potassium 4.7 mmol/L (3.5-5.1); Sodium 135 mmol/L (136-145)
[2022-01-03 05:42] LABS: ALT (SGPT) 301 U/L (8-55); AST (SGOT) 124 U/L (5-34); Albumin 3.4 g/dL (3.4-4.8); Alkaline Phosphatase 90 U/L (40-110); Bilirubin, Direct 0.4 mg/dL (0.1-0.3); Bilirubin, Total 0.9 mg/dL (0.2-1.2); Protein, Total 6.4 g/dL (5.8-8.1)
[2022-01-03 07:19] LABS: #Eosinphils 0.1 thou/uL (0.0-0.7); #Lymphocytes 0.5 thou/uL (1.20-3.40); #Monocytes 0.7 thou/uL (0.11-0.59); #Neutrophils 9.7 thou/uL (1.40-6.50); %Basophils 0.2 % (0.0-1.0); %Eosinophils 0.7 % (0.0-10.0); %Lymphocytes 4.7 % (21.0-51.0); %Neutrophils 88.4 % (42.0-75.0); Hemoglobin 9.4 g/dL (14.0-18.0); Mean Corpuscular HGB CONC 32.1 g/dL (32.0-36.0); Mean Corpuscular Hemoglobin 35.2 pg (27.0-31.0); Mean Platelet Volume 7.7 fL (7.4-10.4); Platelet Count 144 thou/uL (130-400); Red Blood Cell (RBC) Count 2.68 mill/uL (4.70-6.10)
[2022-01-03] MEDS: Mometasone 200 MCG/Formoterol 5 MCG 120 PUFF INHALER INH SCH ×2 (07:47→19:15)
[2022-01-03] MEDS: NIFEdipine XL 60 MG TAB PO SCH ×2 (08:58→20:46)
[2022-01-03] MEDS: Sevelamer Carbonate 800 MG TAB PO SCH ×3 (08:58→15:44)
[2022-01-03] MEDS: Lisinopril 20 MG TAB PO SCH ×2 (08:59→20:48)
[2022-01-03] MEDS: Folic Acid/Vit B Comp W-C PO SCH (08:59)
[2022-01-03] MEDS: Labetalol HCl 100 MG TAB PO SCH ×3 (08:59→20:47)
[2022-01-03] MEDS: DULoxetine 30 MG CAP PO SCH (09:00)
[2022-01-03 09:11] VITALS: BMI 18.2
[2022-01-03] MEDS: hydrALAZINE 20 MG/ML VIAL SLOW IVP PRN (17:27)
[2022-01-03 18:24] LABS: INR-International Normal Ratio 1.1; Prothrombin Time 14.3 sec (12.0-14.7)
[2022-01-03 18:59] LABS: Hep A IgM AB Non-Reactive (NonReactive); Hep A IgM S/CO 0.09 S/CO (0-0.79); Hep C IgG Ab Non-Reactive (NonReactive); Hep C Index 0.18 S/CO (0-0.79)
[2022-01-03] MEDS: Azithromycin 250 MG TAB PO SCH (20:46)
[2022-01-03] MEDS: hydrALAZINE 25 MG TAB PO SCH (20:47)
[2022-01-03] MEDS ORDERED: NIFEdipine XL 90 MG TAB PO SCH (21:00)
[2022-01-04] MEDS: cefTRIAXone\\ROCEPHIN 1 GM in Sodium Chloride 0.9% 100 ML IVPB SCH (00:17)
[2022-01-04] MEDS: hydrALAZINE 20 MG/ML VIAL SLOW IVP PRN (00:18)
[2022-01-04 05:17] LABS: Anion Gap 23 mmol/L (10-20); BUN (Urea Nitrogen) 65 mg/dL (8.4-25.7); Calc. Creatinine Clearance 9 mL/min (70-130); Calcium 9.7 mg/dL (7.8-10.44); Carbon Dioxide 20 mmol/L (23-31); Chloride 96 mmol/L (98-107); Glucose 97 mg/dL (80-115); Potassium 5.2 mmol/L (3.5-5.1); Sodium 134 mmol/L (136-145)
[2022-01-04] MEDS: Mometasone 200 MCG/Formoterol 5 MCG 120 PUFF INHALER INH SCH (06:59)
[2022-01-04 10:20] LABS: #Eosinphils 0.1 thou/uL (0.0-0.7); #Lymphocytes 0.5 thou/uL (1.20-3.40); #Monocytes 0.5 thou/uL (0.11-0.59); #Neutrophils 10.1 thou/uL (1.40-6.50); %Basophils 0.1 % (0.0-1.0); %Eosinophils 0.6 % (0.0-10.0); %Lymphocytes 4.7 % (21.0-51.0); %Monocytes 4.1 % (0.0-10.0); %Neutrophils 90.5 % (42.0-75.0); Hemoglobin 9.5 g/dL (14.0-18.0); Mean Corpuscular HGB CONC 33.2 g/dL (32.0-36.0); Mean Corpuscular Hemoglobin 35.7 pg (27.0-31.0); Mean Platelet Volume 7.9 fL (7.4-10.4); Platelet Count 156 thou/uL (130-400); Red Blood Cell (RBC) Count 2.65 mill/uL (4.70-6.10); White Blood Cell (WBC) Count 11.2 thou/uL (4.8-10.8)
[2022-01-04 11:25] VITALS: TEMP 98
[2022-01-04] MEDS: hydrALAZINE 25 MG TAB PO SCH ×2 (13:20→14:28)
[2022-01-04] MEDS: Sevelamer Carbonate 800 MG TAB PO SCH ×2 (13:20→14:21)
[2022-01-04] MEDS: Labetalol HCl 100 MG TAB PO SCH ×2 (13:21→14:23)
[2022-01-04] MEDS: Folic Acid/Vit B Comp W-C PO SCH (14:25)
[2022-01-04] MEDS: NIFEdipine XL 60 MG TAB PO SCH (14:25)
[2022-01-04] MEDS: Lisinopril 20 MG TAB PO SCH (14:28)
[2022-01-04] MEDS: DULoxetine 30 MG CAP PO SCH (14:28)
[2022-01-04 14:29] VITALS: BP 184/94
[2022-01-07 13:14] LABS: Hep B Surface AG-Rflx Sendout Negative (Negative); Hepatitis B Core Total Negative (Negative); Hepatitis B Surface AB-Sendout Reactive (.)
== END 2022-01-04 15:22 | disposition left against medical advice (07) | DRG 291 ==
LOC: ERS 20:37 → 2NO 23:28
PROVIDERS: ADMIT Student in an Organized Health Care Education/Training Program; ATTEND Hospitalist
PROC: 5A1D70Z Performance of Urinary Filtration, Intermittent, Less than 6 Hours Per Day (ICD-10-PCS; 2021-12-31)
PROC: 0W9B3ZZ Drainage of Left Pleural Cavity, Percutaneous Approach (ICD-10-PCS; principal; 2022-01-01)
PROC: 5A1D70Z Performance of Urinary Filtration, Intermittent, Less than 6 Hours Per Day (ICD-10-PCS; 2022-01-02)
DX: I13.0 Hypertensive heart and chronic kidney disease with heart failure and stage 1 through stage 4 chronic kidney disease, or unspecified chronic kidney disease (principal); N18.6 End stage renal disease; J96.01 Acute respiratory failure with hypoxia; I50.33 Acute on chronic diastolic (congestive) heart failure; G93.41 Metabolic encephalopathy; K72.00 Acute and subacute hepatic failure without coma; E87.2 Acidosis; I16.1 Hypertensive emergency; J90 Pleural effusion, not elsewhere classified; E78.5 Hyperlipidemia, unspecified; E78.00 Pure hypercholesterolemia, unspecified; F41.9 Anxiety disorder, unspecified; D63.1 Anemia in chronic kidney disease; F28 Other psychotic disorder not due to a substance or known physiological condition; Z20.822 Contact with and (suspected) exposure to COVID-19; E87.5 Hyperkalemia; Z85.528 Personal history of other malignant neoplasm of kidney; Z99.2 Dependence on renal dialysis; Z98.890 Other specified postprocedural states
CPT/HCPCS: 36415; 70450; 71045; 74177; 80048; 80053; 80076; 82550; 82553; 82945; 83605; 84157; 84484; 85025; 85060; 85610; 86704; 86705; 86706; 86707; 86709; 86803; 87040; 87070; 87205; 87340; 87350; 88112; 88305; 89051; 90935; 93005; 93306; 96365; 96375; 96376; G0257; J0360; J0456; J0696; J3490; J7050; Q9967; U0002

== ENCOUNTER 2022-02-07 12:13 | Outpatient (CLI) | payer MEDICARE, BC | END 2022-02-07 12:14 | disposition home or self-care (01) | LOC: BICULT 12:13 | PROVIDERS: ATTEND Family Medicine | DX: R09.89 Other specified symptoms and signs involving the circulatory and respiratory systems (principal) | CPT/HCPCS: 93880 ==

== ENCOUNTER 2022-04-19 21:06 | Inpatient (IN) | payer MEDICARE, BC ==
[2022-04-19 23:32] LABS: ALT (SGPT) 17 U/L (8-55); AST (SGOT) 24 U/L (5-34); Albumin 3.8 g/dL (3.4-4.8); Alkaline Phosphatase 81 U/L (40-110); Anion Gap 18 mmol/L (10-20); BUN (Urea Nitrogen) 27 mg/dL (8.4-25.7); Calc. Creatinine Clearance 0 mL/min (70-130); Calcium 9.8 mg/dL (7.8-10.44); Carbon Dioxide 29 mmol/L (23-31); Chloride 97 mmol/L (98-107); Globulin 3.1 g/dL (2.4-3.5); Glucose 87 mg/dL (80-115); Potassium 4.4 mmol/L (3.5-5.1); Protein, Total 6.9 g/dL (5.8-8.1); Sodium 140 mmol/L (136-145)
[2022-04-19 23:53] LABS: CKMB 4.4 ng/mL (0-6.6)
[2022-04-19 23:57] LABS: #Basophils 0.1 thou/uL (0.0-0.2); #Eosinphils 0.1 thou/uL (0.0-0.7); #Lymphocytes 0.6 thou/uL (1.20-3.40); #Monocytes 0.5 thou/uL (0.11-0.59); #Neutrophils 5.6 thou/uL (1.40-6.50); %Basophils 0.8 % (0.0-1.0); %Eosinophils 1.8 % (0.0-10.0); %Lymphocytes 8.6 % (21.0-51.0); %Monocytes 7.4 % (0.0-10.0); %Neutrophils 81.4 % (42.0-75.0); Anisocytosis SLIGHT = 6-15 cells (100X) (0-5/hpf); Hemoglobin 8.9 g/dL (14.0-18.0); MDiff Complete? YES; Mean Corpuscular HGB CONC 31.9 g/dL (32.0-36.0); Mean Corpuscular Hemoglobin 34.6 pg (27.0-31.0); Mean Platelet Volume 7.4 fL (7.4-10.4); Platelet Count 119 thou/uL (130-400); Platelet Morphology Comment Appears Decreased; RBC Distribution Width 16.9 % (11.5-14.5); Red Blood Cell (RBC) Count 2.56 mill/uL (4.70-6.10); White Blood Cell (WBC) Count 6.8 thou/uL (4.8-10.8)
[2022-04-20] MEDS ORDERED: cefTRIAXone\\ROCEPHIN 1 GM VIAL ONE (00:25)
[2022-04-20 03:08] VITALS: BMI 21.0
[2022-04-20] MEDS ORDERED: Acetaminophen 650 MG Suppository PR PRN (03:29)
[2022-04-20] MEDS ORDERED: Acetaminophen 325 MG TAB PO PRN (03:29)
[2022-04-20] MEDS ORDERED: Guaifenesin DM 100-10/5 ML UDCUP PO PRN (03:39)
[2022-04-20] MEDS ORDERED: Azithromycin 500 MG in Sodium Chloride 0.9% 250 ML 250 ML IVPB SCH (04:00)
[2022-04-20 05:16] LABS: #Basophils 0.1 thou/uL (0.0-0.2); #Eosinphils 0.1 thou/uL (0.0-0.7); #Lymphocytes 0.6 thou/uL (1.20-3.40); #Monocytes 0.5 thou/uL (0.11-0.59); #Neutrophils 5.7 thou/uL (1.40-6.50); %Basophils 0.8 % (0.0-1.0); %Eosinophils 1.9 % (0.0-10.0); %Lymphocytes 8.1 % (21.0-51.0); %Monocytes 7.3 % (0.0-10.0); %Neutrophils 81.8 % (42.0-75.0); Hemoglobin 9.2 g/dL (14.0-18.0); Mean Corpuscular HGB CONC 32.8 g/dL (32.0-36.0); Mean Corpuscular Hemoglobin 35.4 pg (27.0-31.0); Mean Platelet Volume 7.3 fL (7.4-10.4); Platelet Count 123 thou/uL (130-400); RBC Distribution Width 16.9 % (11.5-14.5); Red Blood Cell (RBC) Count 2.59 mill/uL (4.70-6.10); White Blood Cell (WBC) Count 6.9 thou/uL (4.8-10.8)
[2022-04-20 05:24] LABS: Alcohol Less than 10 mg/dL (Less than 10); Anion Gap 15 mmol/L (10-20); BUN (Urea Nitrogen) 30 mg/dL (8.4-25.7); Calc. Creatinine Clearance 16 mL/min (70-130); Calcium 9.9 mg/dL (7.8-10.44); Carbon Dioxide 29 mmol/L (23-31); Chloride 96 mmol/L (98-107); Glucose 79 mg/dL (80-115); Potassium 4.4 mmol/L (3.5-5.1); Sodium 136 mmol/L (136-145)
[2022-04-20 05:27] LABS: Acetaminophen Less than 10.0 mcg/mL (10.0-30.0); Alcohol Less than 10 mg/dL (Less than 10); Salicylate Less than 8.0 mg/dL (15.0-30.0)
[2022-04-20 05:46] LABS: Troponin I 0.035 ng/mL (< 0.028)
[2022-04-20] MEDS: Heparin 5,000 UNITS/ML VIAL SC SCH ×2 (10:04→22:19)
[2022-04-20] MEDS: Nicotine 14 MG PATCH TD SCH (10:10)
[2022-04-20] MEDS ORDERED: ISOVUE-370 76%-LOCM 1 ML ONE (13:43)
[2022-04-20] MEDS: NIFEdipine XL 60 MG TAB PO SCH (21:46)
[2022-04-20] MEDS: cloNIDine 0.1 MG TAB PO SCH (21:50)
[2022-04-20] MEDS: Minoxidil 2.5 MG TAB PO SCH (21:50)
[2022-04-20] MEDS: Labetalol HCl 100 MG TAB PO SCH (22:18)
[2022-04-21] MEDS ORDERED: cefTRIAXone\\ROCEPHIN 1 GM in Sodium Chloride 0.9% 100 ML IVPB SCH (01:00)
[2022-04-21 05:28] LABS: #Eosinphils 0.2 thou/uL (0.0-0.7); #Lymphocytes 0.6 thou/uL (1.20-3.40); #Monocytes 0.6 thou/uL (0.11-0.59); #Neutrophils 6.7 thou/uL (1.40-6.50); %Basophils 0.4 % (0.0-1.0); %Eosinophils 2.2 % (0.0-10.0); %Lymphocytes 7.3 % (21.0-51.0); %Monocytes 7.9 % (0.0-10.0); %Neutrophils 82.2 % (42.0-75.0); Hemoglobin 9.8 g/dL (14.0-18.0); Mean Corpuscular HGB CONC 32.7 g/dL (32.0-36.0); Mean Platelet Volume 7.7 fL (7.4-10.4); Platelet Count 128 thou/uL (130-400); RBC Distribution Width 16.5 % (11.5-14.5); Red Blood Cell (RBC) Count 2.79 mill/uL (4.70-6.10); White Blood Cell (WBC) Count 8.1 thou/uL (4.8-10.8)
[2022-04-21] MEDS: Nicotine 14 MG PATCH TD SCH (05:29)
[2022-04-21 05:48] LABS: Anion Gap 17 mmol/L (10-20); BUN (Urea Nitrogen) 54 mg/dL (8.4-25.7); Calc. Creatinine Clearance 11 mL/min (70-130); Calcium 10.1 mg/dL (7.8-10.44); Carbon Dioxide 29 mmol/L (23-31); Chloride 97 mmol/L (98-107); Glucose 81 mg/dL (80-115); Potassium 4.9 mmol/L (3.5-5.1); Sodium 138 mmol/L (136-145)
[2022-04-21] MEDS ORDERED: Multivitamin W/ Minerals 1 TAB PO SCH (09:00)
[2022-04-21] MEDS ORDERED: Piperacillin/Tazobactam 3.375 GM in Sodium Chloride 0.9% 100 ML IVPB SCH ×2 (09:15→12:00)
[2022-04-21] MEDS ORDERED: VANCOMYCIN 1.25 GM/250 ML BAG 1.25 GM in Premix Bag 1 BAG IVPB SCH (09:15)
[2022-04-21] MEDS ORDERED: Vancomycin Hemodialysis Sliding Scale FS SCH (09:15)
[2022-04-21] MEDS: Labetalol HCl 100 MG TAB PO SCH ×2 (09:38→21:22)
[2022-04-21] MEDS: Minoxidil 2.5 MG TAB PO SCH ×2 (09:38→21:21)
[2022-04-21] MEDS: NIFEdipine XL 60 MG TAB PO SCH ×2 (09:38→21:21)
[2022-04-21] MEDS: DULoxetine 30 MG CAP PO SCH (09:39)
[2022-04-21] MEDS: cloNIDine 0.1 MG TAB PO SCH ×2 (09:39→21:22)
[2022-04-21] MEDS: Heparin 5,000 UNITS/ML VIAL SC SCH ×2 (09:39→21:21)
[2022-04-21] MEDS: Multivitamin W/ Minerals 1 TAB PO SCH (09:39)
[2022-04-21] MEDS ORDERED: Azithromycin 500 MG in Sodium Chloride 0.9% 250 ML 250 ML IVPB SCH (10:00)
[2022-04-21] MEDS ORDERED: Fluticasone Propionate Nasal Spray 16 gm Bottle NASAL PRN (16:07)
[2022-04-21] MEDS: Piperacillin/Tazobactam 3.375 GM in Sodium Chloride 0.9% 100 ML IVPB SCH (17:04)
[2022-04-21] MEDS ORDERED: Lorazepam 0.5 MG TAB PO PRN (21:00)
[2022-04-22] MEDS: Piperacillin/Tazobactam 3.375 GM in Sodium Chloride 0.9% 100 ML IVPB SCH ×2 (05:05→18:09)
[2022-04-22] MEDS: Nicotine 14 MG PATCH TD SCH (05:05)
[2022-04-22 05:16] LABS: #Eosinphils 0.2 thou/uL (0.0-0.7); #Lymphocytes 0.4 thou/uL (1.20-3.40); #Monocytes 0.6 thou/uL (0.11-0.59); #Neutrophils 6.7 thou/uL (1.40-6.50); %Basophils 0.3 % (0.0-1.0); %Eosinophils 2.4 % (0.0-10.0); %Lymphocytes 5.5 % (21.0-51.0); %Neutrophils 83.9 % (42.0-75.0); Hemoglobin 9.5 g/dL (14.0-18.0); Mean Corpuscular HGB CONC 32.6 g/dL (32.0-36.0); Mean Platelet Volume 7.6 fL (7.4-10.4); Platelet Count 129 thou/uL (130-400); RBC Distribution Width 16.7 % (11.5-14.5); Red Blood Cell (RBC) Count 2.71 mill/uL (4.70-6.10)
[2022-04-22 05:44] LABS: Anion Gap 21 mmol/L (10-20); BUN (Urea Nitrogen) 72 mg/dL (8.4-25.7); Calc. Creatinine Clearance 9 mL/min (70-130); Carbon Dioxide 25 mmol/L (23-31); Chloride 95 mmol/L (98-107); Potassium 5.2 mmol/L (3.5-5.1); Sodium 136 mmol/L (136-145)
[2022-04-22 05:45] LABS: Calcium 9.6 mg/dL (7.8-10.44); Glucose 86 mg/dL (80-115)
[2022-04-22 07:08] LABS: Vancomycin, Random 16.2 ug/mL (See Comment)
[2022-04-22] MEDS ORDERED: hydrALAZINE 20 MG/ML VIAL SLOW IVP PRN (08:44)
[2022-04-22] MEDS: NIFEdipine XL 60 MG TAB PO SCH (09:21)
[2022-04-22] MEDS: DULoxetine 30 MG CAP PO SCH (09:21)
[2022-04-22] MEDS: Labetalol HCl 100 MG TAB PO SCH (09:21)
[2022-04-22] MEDS: Multivitamin W/ Minerals 1 TAB PO SCH (09:21)
[2022-04-22] MEDS: Heparin 5,000 UNITS/ML VIAL SC SCH (09:22)
[2022-04-22] MEDS: cloNIDine 0.1 MG TAB PO SCH (09:22)
[2022-04-22] MEDS: Minoxidil 2.5 MG TAB PO SCH (09:22)
[2022-04-22] MEDS ORDERED: Vancomycin HCl 250 MG in Sodium Chloride 0.9% 100 ML IVPB SCH (17:00)
[2022-04-22 19:58] VITALS: BP 123/63; TEMP 98.2
== END 2022-04-22 20:05 | disposition home or self-care (01) | DRG 70 ==
LOC: ERS 21:06 → NEURO 04-20 00:45 → OBSVTOIN 04-22 17:49
PROVIDERS: ADMIT Hospitalist; ATTEND Hospitalist
PROC: 5A1D70Z Performance of Urinary Filtration, Intermittent, Less than 6 Hours Per Day (ICD-10-PCS; principal; 2022-04-22)
DX: G93.41 Metabolic encephalopathy (principal); J18.9 Pneumonia, unspecified organism; N18.6 End stage renal disease; J90 Pleural effusion, not elsewhere classified; I13.2 Hypertensive heart and chronic kidney disease with heart failure and with stage 5 chronic kidney disease, or end stage renal disease; I50.32 Chronic diastolic (congestive) heart failure; J96.11 Chronic respiratory failure with hypoxia; Z20.822 Contact with and (suspected) exposure to COVID-19; E11.22 Type 2 diabetes mellitus with diabetic chronic kidney disease; F41.9 Anxiety disorder, unspecified; E78.5 Hyperlipidemia, unspecified; E78.00 Pure hypercholesterolemia, unspecified; R77.8 Other specified abnormalities of plasma proteins; E87.5 Hyperkalemia; D63.1 Anemia in chronic kidney disease; I70.1 Atherosclerosis of renal artery; I95.89 Other hypotension; F17.220 Nicotine dependence, chewing tobacco, uncomplicated; Z91.19 Patient's noncompliance with other medical treatment and regimen; Z99.81 Dependence on supplemental oxygen; Z99.2 Dependence on renal dialysis; Z79.899 Other long term (current) drug therapy; Z90.5 Acquired absence of kidney; Z87.01 Personal history of pneumonia (recurrent)
CPT/HCPCS: 36415; 70450; 71045; 71260; 80048; 80053; 80202; 80307; 82553; 84145; 84484; 85025; 85652; 86140; 90935; 93005; 96365; 96366; 96367; 96372; 96375; 96376; G0257; G0378; J0456; J0696; J1644; J2543; J3370; J3490; J7050; Q9966; U0003; U0005

== ENCOUNTER 2022-05-21 10:33 | Outpatient (CLI) | payer MEDICARE, BC | END 2022-05-21 10:34 | disposition home or self-care (01) | LOC: RAD 10:33 | PROVIDERS: ATTEND Internal Medicine | DX: R06.09 Other forms of dyspnea (principal); J90 Pleural effusion, not elsewhere classified; J98.11 Atelectasis | CPT/HCPCS: 71046 ==